=== PATIENT | female | born 1955 | race Caucasian/White ===

== ENCOUNTER → 2016-03-25 | Outpatient (CLI) | payer OTHER ==
[~2016-03-25] MED LIST: DOCU-144 PO; ESCI5TAB PO; HYDR-2086 PO; HYDR-3498 PO; IBUP100O10 PO; IOHEXOL 300MG/ML 30 ML BTL ONE
--- NOTE | 2016-03-25 16:46 | RADRPT ---
PROCEDURE: Right hip arthrogram and aspiration. CLINICAL INDICATION: Right hip pain. Postop. TECHNIQUE: Prior to the procedure, informed consent was obtained. The patient's name, date of bir th, and procedure to be performed were verified. Using local anesthetic, sterile technique and fluo roscopic guidance, a 20-gauge spinal needle was advanced into the right hip joint. Five cc of Omnip aque-300 contrast was injected into the joint. A small amount of bloody fluid was aspirated. COMPARISON: No prior studies available for comparison. FINDINGS: Images demonstrate a total right hip arthroplasty. Subsequent images demonstrate contrast injection in the joint region. IMPRESSION: 1. Satisfactory right hip arthrogram and aspiration. RPTAT: QQ .Fili Morejon MD, MD Date Time Electronically viewed and signed by .Fili Morejon MD, MD on 03/25/2016 16:46 .R/
== END | disposition home or self-care (01) ==
LOC: RAD 14:01
PROVIDERS: ATTEND Specialist
DX: M25.552 Pain in left hip (principal); Z96.642 Presence of left artificial hip joint
CPT/HCPCS: 77002; 87070; Q9967; Z7610

== ENCOUNTER → 2016-06-17 | Outpatient (CLI) | payer OTHER ==
[~2016-06-17] MED LIST changes: -IOHEXOL 300MG/ML 30 ML BTL ONE
--- NOTE | 2016-06-17 09:54 | RADRPT ---
PROCEDURE: XR pelvis/right hip. CLINICAL INDICATION: Hip pain TECHNIQUE: AP pelvis/AP and lateral right hip views available for review. COMPARISON: 10/17/2015 FINDINGS: There is a right total hip replacement. There is no evidence of loosening of the prosthesis. There i s no evidence of hardware failure. There is normal mineralization, architecture and alignment. No f ractures are identified. No osseous lesions are present. The left hip joint is unremarkable. The SI joints are unremarkable. The soft tissues are unremarkable. IMPRESSION: Right total hip replacement Otherwise an unremarkable examination RPTAT: HGDB .Ismael Amaya MD, Date Time Electronically viewed and signed by .Ismael Amaya MD, on 06/17/2016 09:54 .B/
== END | disposition home or self-care (01) ==
LOC: HKI 09:16
PROVIDERS: ATTEND Orthopaedic Surgery
DX: T84.51XA Infection and inflammatory reaction due to internal right hip prosthesis, initial encounter (principal); Z96.641 Presence of right artificial hip joint
CPT/HCPCS: 73502; G0463

== ENCOUNTER → 2016-08-13 | Outpatient (CLI) | payer OTHER ==
[~2016-08-13] MED LIST changes: +IOHEXOL 300MG/ML 30 ML BTL ONE
[2016-08-13 14:49] LABS: SYNOVIAL FLUID COLOR Brown
[2016-08-13 14:50] LABS: SYNOVIAL FLUID CLARITY Cloudy; SYNOVIAL FLUID WBC 83200 /cmm (0-150)
--- NOTE | 2016-08-13 15:40 | RADRPT ---
PROCEDURE: Right hip aspiration CLINICAL INDICATION: Pain TECHNIQUE: After informed consent was obtained, the patients right hip was prepped and draped in usual sterile fashion. 1% Lidocaine was used for local anesthesia. Under fluoroscopic guidance, an 1 8 gauge spinal needle was inserted into the hip joint. 5 cc of orange colored fluid was aspirated. The patient tolerated the procedure well and there were no immediate complications. Fluoroscopy time: 0.2 minute COMPARISON: None FINDINGS: Aspiration of 5 cc of thick [place] fluid. RPTAT: AA IMPRESSION: Successful right hip aspiration. The fluid was sent for culture and sensitivity. Physician Isabel Date Time Electronically viewed and signed by Physician Isabel on 08/13/2016 15:40 RA/
[2016-08-13 16:44] LABS: LYMPHOCYTES,SYNOVIAL FLUID 3; NEUTROPHILS,SYNOVIAL FLUID 95 % (0-25)
== END | disposition home or self-care (01) ==
LOC: RAD 10:39
PROVIDERS: ATTEND Orthopaedic Surgery
DX: Z47.1 Aftercare following joint replacement surgery (principal); Z96.641 Presence of right artificial hip joint; M25.551 Pain in right hip
CPT/HCPCS: 20610; 77002; 87070; 87075; 89051; Z7610; Q9967

== ENCOUNTER 2016-09-06 11:48 | Inpatient (IN) | payer OTHER ==
[~2016-09-06] VITALS: Ht 170.2 cm; Wt 62.7 kg
[2016-09-06] MEDS ORDERED: CEFTRIAXONE 1 GM/50 ML (PMX) 50 ML IVPB STA (15:27)
[2016-09-06] MEDS ORDERED: ONDANSETRON 4 MG INJ IV STA (15:27)
[2016-09-06] MEDS ORDERED: SOD CHLORIDE 0.9% 1,000 ML IV STA (15:27)
[2016-09-06] MEDS ORDERED: HYDROmorphONE 1 MG/ML SYG IV STA (15:27)
[2016-09-06] MEDS ORDERED: PIPER-TAZO 3.375 GM IV (PMX) 100 ML IVPB STA (15:27)
[2016-09-06] MEDS ORDERED: VANCOMYCIN 1 GM (PMX) 250 ML IVPB SCH (15:30)
[2016-09-06 15:39] LABS: ADD SCAN DIFF NO
[2016-09-06 15:42] LABS: BASOPHILS % 0.5 % (0.0-2.0); EOSINOPHILS # 0.2 10^3/ul (0.0-0.5); EOSINOPHILS % 3.1 % (0.0-7.0); HEMATOCRIT 34.7 % (37.0-47.0); HEMOGLOBIN 11.3 g/dl (12.0-16.0); LYMPHOCYTES # 1.7 10^3/ul (0.8-2.9); LYMPHOCYTES % 22.4 % (15.0-51.0); MEAN CORPUSCULAR HEMOGLOBIN 27.6 pg (29.0-33.0); MEAN CORPUSCULAR HGB CONC 32.6 g/dl (32.0-37.0); MEAN CORPUSCULAR VOLUME 84.8 fl (82.0-101.0); MONOCYTE # 0.9 10^3/ul (0.3-0.9); MONOCYTES % 11.3 % (0.0-11.0); NEUTROPHIL # 4.8 10^3/ul (1.6-7.5); NEUTROPHILS % 62.4 % (39.0-77.0); PLATELET COUNT 310 10^3/UL (140-415); RED BLOOD COUNT 4.09 10^6/ul (4.20-5.40); RED CELL DISTRIBUTION WIDTH 15.2 % (11.5-14.5); WHITE BLOOD COUNT 7.6 10^3/ul (4.8-10.8)
[2016-09-06 15:58] LABS: INR 0.98
[2016-09-06 16:01] LABS: ALANINE AMINOTRANSFERASE 23 IU/L (13-69); ALBUMIN 4.3 g/dl (3.3-4.9); ALKALINE PHOSPHATASE 83 IU/L (42-121); ANION GAP 14 (8-16); ASPARTATE AMINO TRANSFERASE 25 IU/L (15-46); BILIRUBIN,INDIRECT 0.2 mg/dl (0-1.1); BILIRUBIN,TOTAL 0.2 mg/dl (0.2-1.3); BLOOD UREA NITROGEN 9 mg/dl (7-20); CALCIUM 9.4 mg/dl (8.4-10.2); CARBON DIOXIDE 29 mmol/L (21-31); CHLORIDE 104 mmol/L (97-110); GLUCOSE 103 mg/dl (70-220); POTASSIUM 3.7 mmol/L (3.5-5.1); SODIUM 143 mmol/L (135-144); TOTAL PROTEIN 7.6 g/dl (6.1-8.1)
[2016-09-06 16:16] LABS: TROPONIN-I < 0.012 ng/ml (0.00-0.12)
--- NOTE | 2016-09-06 16:18 | ERA ---
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 Her initial infection was diagnosed about a year ago for short period of time she was treated with oral antibiotics and it seemed symptoms improved, although testing about 2 weeks ago revealed MRSA positive infection. She states she has had intermittent tactile fevers and increasing pain to the right hip with recent redness and swelling to the skin over the right hip. Patient denies chest pain or shortness of breath, no calf or leg swelling, no vomiting, no abdominal pain. ROS All systems reviewed and are negative except as per history of present illness. Medications Home Meds Active Scripts Hydrocodone Bit/Acetaminophen (Anexsia 5-325 Mg Tablet) 1 Tab Tablet, 2 TAB PO Q4H Y for PAIN for 28 Days, TAB Prov:TONY CADET MD 10/20/15 Docusate Sodium* (Colace*) 100 Mg Capsule, 100 MG PO BID for 28 Days, CAP Prov:TONY CADET MD 10/20/15 Hydrocodone Bit-Acetaminophen* ([place]*) 5-325 Mg Tab, 1 TAB PO Q4H Y for PAIN for 28 Days, TAB Prov:TONY CADET MD 10/20/15 Reported Medications Ibuprofen (Ibuprofen) 100 Mg/5 Ml Oral.susp, 800 MG PO Q6H Y for PAIN, ML 10/16/15 Hydrocodone Bit-Acetaminophen* (Vicodin*) 5-300 Tab, 1 TAB PO Q4H Y for PAIN, TAB 10/16/15 Escitalopram Oxalate* (Lexapro*) 5 Mg Tablet, 5 MG PO DAILY, #30 TAB 10/16/15 Allergies Allergies: Coded Allergies: No Known Allergy (Unverified , 11/21/15) PMhx/Soc Arthritis History of Surgery: Yes (SHINGLES, S/P RT THR 10/17/2015, HYPERCHOLESTEROLEMIA.) Anesthesia Reaction: Yes (nausea) Hx Neurological Disorder: No Hx Respiratory Disorders: No Hx Cardiac Disorders: Yes (hyperlipidemia) Hx Psychiatric Problems: No Hx Miscellaneous Medical Probl: No Hx Alcohol Use: Yes Hx Substance Use: No Hx Tobacco Use: No Smoking Status: Never smoker FmHx Family History: No diabetes Physical Exam Vitals Vital Signs Date Time Temp Pulse Resp B/P Pulse Ox O2 Delivery O2 Flow Rate FiO2 09/06/16 15:11 98.9 83 20 121/64 100 Room Air 09/06/16 11:51 98.9 63 20 137/66 99 Physical Exam GENERAL: Well-developed, well-nourished, in moderate discomfort. HEENT: Moist mucous membranes, pink conjunctiva, no cervical spine tenderness or step-off deformities, no goiter, no jaundice or icterus, extraocular movements intact without pain. No submandibular induration, and no pharyngeal erythema NEURO: Alert and oriented 3, cranial nerves II through XII intact bilaterally, pupils equal round reactive to light, no focal deficits or facial asymmetry, sensation intact distally Strength 5/5 in upper and lower extremities bilaterally CARDIAC: Regular rate and rhythm, no murmurs rubs or gallops LUNGS: Clear bilaterally no wheezing crackles or stridor ABDOMEN: Soft nontender, no guarding, no rigidity, no rebound, no psoas sign no obturator sign. Normoactive bowel sounds SKIN: Right lateral hip erythema with induration and skin dimpling secondary to previous hip arthroplasty, no ulcers, no active discharge. No rash EXTREMITIES: No clubbing cyanosis or edema, calves are bilaterally symmetrical, no Homans sign, no popliteal cord sign. Distal pulses equal and bilateral PSYCH: Normal affect without agitation or irritability Result Diagram: 09/06/16 1522 09/06/16 1522 Results 24 hrs Laboratory Tests Test 09/06/16 15:22 09/06/16 16:23 White Blood Count 7.610^3/ul Red Blood Count 4.0910^6/ul Hemoglobin 11.3g/dl Hematocrit 34.7% Mean Corpuscular Volume 84.8fl Mean Corpuscular Hemoglobin 27.6pg Mean Corpuscular Hemoglobin Concent 32.6g/dl Red Cell Distribution Width 15.2% Platelet Count 71173^3/UL Mean Platelet Volume 10.0fl Neutrophils % 62.4% Lymphocytes % 22.4% Monocytes % 11.3% Eosinophils % 3.1% Basophils % 0.5% Nucleated Red Blood Cells % 0.0/100WBC Neutrophils # 4.810^3/ul Lymphocytes # 1.710^3/ul Monocytes # 0.910^3/ul Eosinophils # 0.210^3/ul Basophils # 0.010^3/ul Nucleated Red Blood Cells # 0.010^3/ul Prothrombin Time 13.0Sec Prothrombin Time Ratio 1.0 INR International Normalized Ratio 0.98 Sodium Level 143mmol/L Potassium Level 3.7mmol/L Chloride Level 104mmol/L Carbon Dioxide Level 29mmol/L Anion Gap 14 Blood Urea Nitrogen 9mg/dl Creatinine 0.50mg/dl Glucose Level 103mg/dl Calcium Level 9.4mg/dl Total Bilirubin 0.2mg/dl Direct Bilirubin 0.00mg/dl Indirect Bilirubin 0.2mg/dl Aspartate Amino Transf (AST/SGOT) 25IU/L Alanine Aminotransferase (ALT/SGPT) 23IU/L Alkaline Phosphatase 83IU/L Troponin I < 0.012ng/ml Total Protein 7.6g/dl Albumin 4.3g/dl Globulin 3.30g/dl Albumin/Globulin Ratio 1.30 Lipase 55U/L Urine Color STRAW Urine Clarity CLEAR Urine pH 6.0 Urine Specific [place] 1.006 Urine Ketones NEGATIVEmg/dL Urine Nitrite NEGATIVEmg/dL Urine Bilirubin NEGATIVEmg/dL Urine Urobilinogen NEGATIVEmg/dL Urine Leukocyte Esterase NEGATIVELeu/ul Urine Hemoglobin NEGATIVEmg/dL Urine Glucose NEGATIVEmg/dL Urine Total Protein NEGATIVEmg/dl Current Medications Medications (Trade) Dose Ordered Sig/Daniel Route PRN Reason Start Time Stop Time Status Last Admin Dose Admin Sodium Chloride (NS) 1,000 ml @ 1,000 mls/hr Q1H STAT IV 09/06/16 15:27 09/06/16 16:26 DC 09/06/16 15:43 Hydromorphone HCl (Dilaudid) 1 mg ONCE STAT IV 09/06/16 15:27 09/06/16 15:30 DC 09/06/16 15:42 Ondansetron HCl 4 mg 4 mg ONCE STAT IV 09/06/16 15:27 09/06/16 15:30 DC 09/06/16 15:42 Ceftriaxone Sodium 50 ml @ 100 mls/hr ONCE STAT IVPB 09/06/16 15:27 09/06/16 15:56 DC 09/06/16 16:26 Piperacillin Sod/ Tazobactam Sod 100 ml @ 200 mls/hr ONCE STAT IVPB 09/06/16 15:27 09/06/16 15:56 DC 09/06/16 15:43 Vancomycin HCl (Vancocin) 250 ml @ 125 mls/hr ONCE IVPB 09/06/16 15:30 09/06/16 17:29 Procedures/MDM IV line was established patient was placed on cardiac catheterization technician rhythm strip revealed a sinus rhythm at 72 bpm with upright P and T waves. Patient was afebrile. Cultures were ordered results are pending I will follow-up. EKG performed, read by me: 72 bpm, normal sinus rhythm, normal axis, no acute ST segment changes, narrow QRS complex, with good R-wave progression in precordial leads. One AP view of the chest performed, read by me reveals no acute infiltrates, normal mediastinum, sharp costophrenic and cardiac borders, no air under the diaphragm. Otherwise unremarkable chest x-ray. Further imaging deferred to her orthopedic surgeon who will be consulting her later. I administered 1 L normal saline intravenously, hydromorphone 1 mg IV, and Zofran 4 mg IV. For MRSA right hip infection I administered vancomycin 1 g IV, ceftriaxone 1 g IV, and Zosyn 3.375 g IV. CBC and electrolytes were normal, liver function tests were normal, troponin was negative. Coagulation profile was within normal limits, urine analysis was negative for infection. Patient admitted to [facility] for continued medical management and surgical debridement and treatment of MRSA positive prosthetic hip infection. Departure Diagnosis: Primary Impression: Prosthetic hip infection Qualified Code: T84.59XA - Prosthetic hip infection, initial encounter Condition: TAMIE Redd MD Sep 06, 2016 16:18
--- NOTE | 2016-09-06 16:18 | RADRPT ---
PROCEDURE: Chest x-ray CLINICAL INDICATION: Abdominal pain TECHNIQUE: Chest single view COMPARISON: None FINDINGS: The heart is normal in size. The pulmonary vessels are normal in caliber. The lungs are clear. Th e costophrenic angles are sharp. The visualized bony thorax is unremarkable. IMPRESSION: No acute cardiopulmonary disease. RPTAT: HH .Pablo Villatoro MD, Date Time Electronically viewed and signed by .Pablo Villatoro MD, MD on 09/06/2016 16:18 .W/
[2016-09-06 16:37] LABS: ADD UMIC NO; UR ASCORBIC ACID NEGATIVE (NEGATIVE); UR BILIRUBIN (Dip) NEGATIVE (NEGATIVE); UR BLOOD (Dip) NEGATIVE (NEGATIVE); UR CLARITY CLEAR (CLEAR); UR COLOR STRAW (YELLOW); UR GLUCOSE (Dip) NEGATIVE (NEGATIVE); UR KETONES (Dip) NEGATIVE (NEGATIVE); UR LEUKOCYTE ESTERASE (Dip) NEGATIVE Leu/ul (NEGATIVE); UR NITRITE (Dip) NEGATIVE (NEGATIVE); UR SPECIFIC GRAVITY (Dip) 1.006 (1.003-1.030); UR TOTAL PROTEIN (Dip) NEGATIVE (NEGATIVE); UR UROBILINOGEN (Dip) NEGATIVE (NEGATIVE)
[2016-09-06 17:20] VITALS: TEMP 98.6
[2016-09-06 18:32] VITALS: BP 121/59; PULSE 61; RESP 18
[2016-09-06 18:43] VITALS: Ht 170.2 cm; Wt 62.7 kg
[2016-09-06] MEDS ORDERED: VANCOMYCIN IV PER PHARMACY XX SCH (19:30)
[2016-09-06] MEDS ORDERED: NACL 0.9% 3 ML SYG IV SCH (19:30)
[2016-09-06] MEDS ORDERED: ACETAMINOPHEN 325 MG TAB PO PRN (19:30)
[2016-09-06] MEDS ORDERED: DOCUSATE SODIUM 100 MG CAP PO PRN (19:30)
[2016-09-06] MEDS ORDERED: ACETAMINOPHEN 650 MG SUPP PR PRN (19:30)
[2016-09-06] MEDS ORDERED: HYDROCODONE/APAP (5/325) TAB PO PRN (19:30)
--- NOTE | 2016-09-06 19:47 | CONS ---
DATE OF ADMISSION: 09/06/2016 DATE OF CONSULTATION: 09/06/2016 REASON FOR CONSULTATION: Infected right hip replacement. HISTORY OF PRESENT ILLNESS: The patient is a 60-year-old woman who initially underwent a right tota l hip arthroplasty through a posterior approach on 10/17/2015 at [facility] by Dr. Pb Valdes. The patient reports that she had her ayo removed about 2 to 3 weeks after the surgery and at that time there was noted to be some drainage from the wound. She was taken back to the operating room on 11/21/[address] Valdes for superficial I and D. The report states that there was no evidence of any deep infection into the joint and no purulence or abscess was noted. C ultures were apparently taken and this was closed over a drain. She was kept in the hospital for ap proximately 4 to 5 days and placed on intravenous antibiotics. She was then discharged to home with no further antibiotic therapy. She then developed worsening pain in March of this year and she s aw Dr. Valdes who ordered a hip aspiration. This was done on 03/25/2016 and came back positive f or growth with MRSA. She was eventually referred to me on 06/17/2016. At that time I saw her, I no itz that she had no pain and her findings were inconsistent with a hip infection. I worked this up with a followup CBC, ESR and CRP and a repeat aspiration. The results came back with a white blood cell count of 8.51, ESR 16 and a CRP elevated at 12.43. The repeat hip aspiration on 08/13/2016 was done and revealed positive growth of MRSA. I had called the patient as soon as I found out the res ults and recommended a 2-stage exchange procedure. She has been afebrile with no fevers or chills, and no drainage or redness around the hip. We have been awaiting insurance authorization, but she c alled today saying she was feeling some chills and noted some redness around her hip. She came into the office and I felt that she needed to be admitted to the hospital for further evaluation and pinky atment. She has started to have some pain in the right hip and groin. There has been no trauma. PAST MEDICAL HISTORY: Elevated cholesterol. PAST SURGICAL HISTORY: 1. Right total hip arthroplasty. 2. Irrigation and debridement, right hip. 3. Knee arthroscopy. 4. Gender reassignment surgery. MEDICATIONS: None. ALLERGIES: NO KNOWN DRUG ALLERGIES. SOCIAL HISTORY: The patient does not smoke and drinks only occasionally. FAMILY HISTORY: Noncontributory. REVIEW OF SYSTEMS: GENERAL/CONSTITUTIONAL: Negative for recent fevers, decreased appetite, fatigue, or unexplained andrés ght loss. EYES/EARS/NOSE/MOUTH/THROAT: Negative for headaches, double vision, tearing, nose bleeding, colds, obstruction, discharge, dental difficulties, gingival bleeding, dentures, neck stiffness, pain, tend erness, or masses in thyroid or other areas. CARDIOVASCULAR: Negative for chest pain, palpitations, irregular heartbeat, syncope, dyspnea on exe rtion, orthopnea, nocturnal paroxysmal dyspnea. RESPIRATORY: Negative for shortness of breath, wheezing, stridor, hemoptysis, tuberculosis, fever, or night sweats. GASTROINTESTINAL: Negative for dysphagia, abdominal pain, heartburn, nausea, vomiting, hematemesis, jaundice, constipation, diarrhea, abnormal stools (jeane-colored, tarry, bloody, greasy, foul-smelli ng), or bright red blood per rectum. GENITOURINARY: Negative for urgency, frequency, dysuria, nocturia, hematuria, stones, infections, n ephritis, hesitancy, change in size of stream, dribbling, acute retention, or incontinence. MUSCULOSKELETAL: Negative for pain, swelling, redness or heat of muscles or joints, limitation of m otion, muscular weakness, atrophy, or cramps. NEUROLOGIC/PSYCHIATRIC: Negative for convulsions, paralyses, tremor, incoordination, paresthesias, difficulties with memory or speech, sensory or motor disturbances, muscular coordination (ataxia, tr emor), emotional problems, anxiety, depression, previous psychiatric care, unusual perceptions, or h allucinations. HEMATOLOGIC: Negative for anemia, bleeding tendency, previous transfusions and reactions, or Rh inc ompatibility. ENDOCRINE: Negative for polydipsia, polyuria, hormone therapy, or intolerance to heat or cold. PHYSICAL EXAMINATION: GENERAL: Well-developed, well-nourished female in no distress. She is alert and oriented x4. VITAL SIGNS: She is afebrile, temperature 98.6, blood pressure 104/78, pulse 60, respiratory rate 1 6, saturation is 100% on room air. MUSCULOSKELETAL: She walks with a normal gait with no antalgic component. Leg lengths are equal. The scar over the right hip is well-healed. There is some trace redness but no fluctuance or draina ge. The right hip has some pain, but no irritability with passive range of motion. She is able to straight leg raise on her own. NEUROVASCULAR: Motor strength is 5/5 in the quadriceps, tibialis anterior, extensor hallucis longus , gastroc-soleus, and peroneals bilaterally. Sensation is intact to light touch throughout both lowe r extremities. There are 2+ palpable dorsalis pedis and posterior tibial pulses, with capillary refi ll less than 2 seconds in all 5 digits bilaterally. There is no distal edema. IMAGING: X-rays dated 06/17/2016 show an uncemented right total hip arthroplasty in place with no obvious loosening. LABORATORY DATA: Today reveal white blood cell count of 7.6, hematocrit 34.7, platelet count 310. INR 0.98. Urine specimen is negative. 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 DISCUSSION: She will require a 2-stage exchange procedure in which we irrigate and debride the righ t hip and remove the prosthesis and place an antibiotic-impregnated cement spacer. She will then ne ed interval intravenous antibiotics and then once her serologic markers normalize, we would then hav e her come off antibiotics, wait a few weeks, aspirate the hip and if it is negative, bring her back soon thereafter for reimplantation. I had a lengthy discussion with the patient about this process . I explained the risks of the first procedure to include but not be limited to bleeding and possib le need for blood transfusion, infection that is unable to be eradicated and need for permanent Gird lestone or loss of limb with a hip disarticulation, wound healing problems, leg length inequality, i nstability, dislocation, fracture, malunion, nonunion, blood clots, pulmonary embolism, and anesthet ic complications such as heart attack, stroke, GI bleed, pneumonia and/or . I explained that t o take out the femoral prosthesis, she will likely need an extended trochanteric osteotomy and this involves the potential risks of malunion or nonunion as well. She understands all that. She will b e seen by infectious disease as well as medicine for preoperative optimization. She should be start ed now on intravenous vancomycin. I will follow her in the hospital and we will plan to do the surg tarun early next week. Dictated By: EDDIE HUDSON MD EZ/NTS Conf#: [id number] DID#: [id number]
[2016-09-06 20:00] VITALS: BP 112/59; PULSE 62; RESP 18
[2016-09-06] MEDS: LEVOFLOXACIN 500MG/D5W (PMX) 100 ML IVPB SCH (20:02)
[2016-09-06] MEDS: SOD CHLORIDE 0.9% 1,000 ML IV SCH (20:02)
[2016-09-06] MEDS: morphine 2 MG INJ IV PRN (20:10)
--- NOTE | 2016-09-06 22:51 | QN ---
Documentation Comment [id number] TONY CADET MD Sep 06, 2016 22:51
--- NOTE | 2016-09-07 00:04 | HP ---
DATE OF ADMISSION: 09/06/2016 HISTORY OF PRESENT ILLNESS: The patient is a 60-year-old female with history of right hip surgery. The patient has a history of right hip infection treated in the past. The patient claims that now she has developed a staph infection and was told to come to the hospital for possible I and D. PAST MEDICAL HISTORY: Positive for osteoarthritis, DJD, anemia, history of right total hip replacem ent in the past. ALLERGY HISTORY: NEGATIVE. FAMILY HISTORY: Negative. SOCIAL HISTORY: Negative. MEDICATIONS AT HOME: None. REVIEW OF SYSTEMS: HEENT: Unremarkable. RESPIRATORY: Unremarkable. CARDIOVASCULAR: Unremarkable. ABDOMEN: Unremarkable. EXTREMITIES: Right knee pain. PHYSICAL EXAMINATION: GENERAL: The patient is awake, alert. VITAL SIGNS: Stable. HEAD: Atraumatic, normocephalic. Pupils equal, reactive to light. NECK: Supple. No JVD. LUNGS: Clear. CARDIOVASCULAR: S1, S2 are normal. ABDOMEN: Soft, nontender. Bowel sounds present. No palpable mass or hepatosplenomegaly. No guard ing, rebound tenderness. EXTREMITIES: There is no cyanosis, clubbing, or edema. CENTRAL NERVOUS SYSTEM: The patient is awake, alert, no focal deficit. HIPS: The right hip is swollen and red. The patient has no discharge noted. LABORATORY DATA: The patient's laboratory data shows the patient has WBC 7.6, hematocrit 34.7. CRP 1.21. IMPRESSION: 1. Right hip pain. 2. Possible right hip cellulitis, rule out abscess. PLAN: At this point, is to have a recommendation from , antibiotics, pain medication. Ord ers were done. Dictated By: TONY CADET MD BS/NTS Conf#: [id number] DID#: [id number]
[2016-09-07] MEDS: ONDANSETRON 4 MG INJ IV PRN ×2 (00:55→09:17)
[2016-09-07] MEDS: morphine 2 MG INJ IV PRN ×4 (00:55→18:26)
[2016-09-07] MEDS: VANCOMYCIN 750 MG in SOD CHLORIDE 0.9% 150 ML IVPB SCH ×2 (05:20→17:33)
[2016-09-07] MEDS ORDERED: PANTOPRAZOLE 40 MG INJ IV SCH (06:00)
[2016-09-07 07:26] VITALS: BP 117/59; RESP 18
--- NOTE | 2016-09-07 12:23 | PN ---
Date/Time of Note Date/Time of Note DATE: 09/07/16 TIME: 12:20 Assessment/Plan Lines/Catheters IV Catheter Type (from Nrsg): Peripheral IV Assessment/Plan Assessment/Plan MRSA Infected Right CORBY -Ultrasound right hip/thigh to look for soft tissue fluid collection -Cont Vanco and Levaquin -Check blood cultures -Pain meds -Request ID consult -Plan for surgery for I&D and removal of infected right CORBY and placement of ABX PMMA spacer on Friday Subjective 24 Hr Interval Summary Resting comfortably. On Vanco and Levaquin. Some right hip pain. Exam/Review of Systems Vital Signs Vitals Vital Signs Date Time Temp Pulse Resp B/P Pulse Ox O2 Delivery O2 Flow Rate FiO2 09/07/16 07:26 98.2 61 18 117/59 99 09/06/16 20:00 Room Air Intake and Output 09/06/16 09/06/16 09/07/16 15:00 23:00 07:00 Intake Total 100 ml 1090 ml Output Total 1100 ml Balance 100 ml -10 ml Exam Free Text/Dictation Some redness and swelling along lower portion of right hip scar Thigh soft 5/5 Quadriceps, Tibialis Anterior, EHL, Gastroc Soleus, Peroneals Normal sensation Palpable DP/PT, CR < 2 Sec No distal edema ESR 40 CRP 1.21 Results Result Diagram: 09/06/16 1522 09/06/16 1522 EDDIE HUDSON MD Sep 07, 2016 12:23
--- NOTE | 2016-09-07 13:54 | PN ---
Date/Time of Note Date/Time of Note DATE: 09/07/16 TIME: 13:51 Assessment/Plan VTE Prophylaxis VTE Prophylaxis Intervention: ambulation Lines/Catheters IV Catheter Type (from Nrsg): Peripheral IV Assessment/Plan Chief Complaint/Hosp Course 1. Right hip pain. 2. Possible right hip cellulitis, rule out abscess. Problems: Assessment/Plan 1. Pain control 2. plan per Ortho consult by Dr Peter 3. ID consult Dr Paris, called Subjective 24 Hr Interval Summary Constitutional: no complaints Cardiovascular: no complaints Musculoskeletal: restricted range of motion Exam/Review of Systems Vital Signs Vitals Vital Signs Date Time Temp Pulse Resp B/P Pulse Ox O2 Delivery O2 Flow Rate FiO2 09/07/16 07:26 98.2 61 18 117/59 99 09/06/16 20:00 Room Air Intake and Output 09/06/16 09/06/16 09/07/16 15:00 23:00 07:00 Intake Total 100 ml 1090 ml Output Total 1100 ml Balance 100 ml -10 ml Exam Constitutional: alert, oriented ENMT: nl external ears & nose Neck: supple Respiratory: clear to auscultation Cardiovascular: regular rate and rhythm Musculoskeletal: range of motion (decreased R hip) Results Result Diagram: 09/06/16 1522 09/06/16 1522 Results 24 hrs Laboratory Tests Test 09/06/16 15:22 09/06/16 16:23 09/06/16 19:05 White Blood Count 7.6 # Red Blood Count 4.09 L Hemoglobin 11.3 L Hematocrit 34.7 L Mean Corpuscular Volume 84.8 Mean Corpuscular Hemoglobin 27.6 L Mean Corpuscular Hemoglobin Concent 32.6 Red Cell Distribution Width 15.2 #H Platelet Count 310 Mean Platelet Volume 10.0 Neutrophils % 62.4 Lymphocytes % 22.4 Monocytes % 11.3 H Eosinophils % 3.1 Basophils % 0.5 Nucleated Red Blood Cells % 0.0 Neutrophils # 4.8 Lymphocytes # 1.7 Monocytes # 0.9 Eosinophils # 0.2 Basophils # 0.0 Nucleated Red Blood Cells # 0.0 Prothrombin Time 13.0 Prothrombin Time Ratio 1.0 INR International Normalized Ratio 0.98 Sodium Level 143 Potassium Level 3.7 Chloride Level 104 Carbon Dioxide Level 29 Anion Gap 14 Blood Urea Nitrogen 9 Creatinine 0.50 Glucose Level 103 Calcium Level 9.4 Total Bilirubin 0.2 Direct Bilirubin 0.00 Indirect Bilirubin 0.2 Aspartate Amino Transf (AST/SGOT) 25 Alanine Aminotransferase (ALT/SGPT) 23 Alkaline Phosphatase 83 Troponin I < 0.012 Total Protein 7.6 Albumin 4.3 Globulin 3.30 H Albumin/Globulin Ratio 1.30 Lipase 55 Urine Color STRAW Urine Clarity CLEAR Urine pH 6.0 Urine Specific Cassel 1.006 Urine Ketones NEGATIVE Urine Nitrite NEGATIVE Urine Bilirubin NEGATIVE Urine Urobilinogen NEGATIVE Urine Leukocyte Esterase NEGATIVE Urine Hemoglobin NEGATIVE Urine Glucose NEGATIVE Urine Total Protein NEGATIVE Erythrocyte Sedimentation Rate 40 H C-Reactive Protein High Sensitivity 1.21 H Medications Medications Current Medications Sodium Chloride (NS) 1,000 ml @ 40 mls/hr Q24H IV Last administered on 20:02; Admin Dose 40 MLS/HR; Start 09/06/16 at 19:24 Ondansetron HCl (Zofran Inj) 4 mg Q6H PRN IV NAUSEA AND/OR VOMITING Last administered on 09/07/16 09:17; Admin Dose 4 MG; Start 09/06/16 at 19:30 Acetaminophen (Tylenol Tab) 650 mg Q6H PRN PO PAIN LEVEL 1-3 OR FEVER; Start at 19:30 Acetaminophen (Tylenol Supp) 650 mg Q6H PRN [place] PAIN LEVEL 1-3 OR FEVER; Start 09/06/16 at 19:30 Acetaminophen/ Hydrocodone Bitart ([place] (5/325)) 1 tab Q6H PRN PO MODERATE PAIN LEVEL 4-6; Start 09/06/16 at 19:30 Morphine Sulfate (morphine) 2 mg Q4H PRN IV SEVERE PAIN LEVEL 7-10 Last administered on 09/07/16 12:48; Admin Dose 2 MG; Start 09/06/16 at 19:30 Docusate Sodium (Colace) 100 mg Q12H PRN PO CONSTIPATION; Start 09/06/16 at 19: 30 Magnesium Hydroxide (Milk Of Mag) 30 ml DAILY PRN PO CONSTIPATION; Start at 19:30 Bisacodyl (Dulcolax) 5 mg DAILY PRN PO CONSTIPATION; Start 09/06/16 at 19:30 Pantoprazole 40 mg 40 mg DAILY@06 IV Last administered on 09/07/16 05:20; Admin Dose 40 MG; Start 09/07/16 at 06:00 Levofloxacin/ Dextrose 100 ml @ 100 mls/hr Q24H IVPB Last administered on 09/06 20:02; Admin Dose 100 MLS/HR; Start 09/06/16 at 19:30 Vancomycin HCl/ Sodium Chloride (Vancocin/NS) 150 ml @ 75 mls/hr Q12H IVPB Last administered on 09/07/16 05:20; Admin Dose 75 MLS/HR; Start 09/07/16 at 05 :00 Miscellaneous Information (*Rx Drug Level Order Reminder*) VANCOMYCIN TROUGH AT 0400 ONCE ONCE XX ; Start 09/08/16 at 04:00; Stop 09/08/16 at 04:01 MICH ACOSTA Sep 07, 2016 13:53
--- NOTE | 2016-09-07 14:41 | RADRPT ---
PROCEDURE: Ultrasound of the soft tissues of the right hip. CLINICAL INDICATION: Right hip pain and swelling. History of right hip arthroplasty. TECHNIQUE: High-resolution sonography of the right hip at the site of the was performed in the axi al and sagittal planes. COMPARISON: None FINDINGS: There is a subcutaneous hypoechoic irregular mass in the right hip region measuring 3.0 x 1.6 x 1.6 cm. There is no other mass or fluid collection. There is subcutaneous adipose tissue edema in the right hip. IMPRESSION: 1. Subcutaneous hypoechoic irregular mass in the right hip region measuring 3.0 x 1.6 x 1.6 cm. Th is may be due to hematoma or abscess. A solid mass is less likely. Clinical correlation is advised. 2. Any further management regarding the palpable lesion should be based on clinical grounds. RPTAT: QQ .Fili Morejon MD, Date Time Electronically viewed and signed by .Fili Morejon MD, on 09/07/2016 14:41 .R/
--- NOTE | 2016-09-07 18:13 | CONS ---
DATE OF ADMISSION: 09/06/2016 DATE OF CONSULTATION: 09/07/2016 INFECTIOUS DISEASE CONSULTATION REASON FOR CONSULTATION: Antibiotic management. HISTORY OF PRESENT ILLNESS: Briana Alves is a 60-year-old female with a history of right hip surg tarun. She has a history of right hip infection treated in the past. Patient claims that she now has developed a staph infection and was told to come to the hospital for possible I and D. Patient is being seen by Dr. Jourdan Peter. The patient initially underwent a right total hip arthroplasty throu gh a posterior approach on 10/17/2015 at [facility] by Dr. Valdes. She had her ayo removed about 2 to 3 weeks after the surgery and at that time, there was noted to be some drainage f rom the wound. She was taken back to the operating room on 11/21/2015 for a superficial I and D. T here is no evidence at the time of deep infection to the joint. It was closed over a drain. She wa s hospitalized for 4 or 5 days on IV antibiotics and discharged home. She developed worsening pain in 03/2016 and had an aspiration. This was done in 03/2016, came back positive for MRSA. She was r eferred to Dr. Peter on 06/17/2016. She had a repeat aspiration as well as a CBC, sed rate. Her w paty count was 8.51. Sed rate 16. CRP 12.43. The aspiration again showed MRSA. He recommended a 2-stage exchange and exchange procedure. They have been waiting for insurance authorization, but sh e called and was complaining of chills and noted some redness around her hip. She came into the off ice of Dr. Peter and was admitted. She started to have some pain in the right hip and groin withou t trauma. PAST SURGICAL HISTORY: Right total hip arthroplasty, irrigation and debridement of the right hip, k nee arthroscopy, gender reassignment surgery. She was seen again by Dr. Peter today ____ infected right total hip aspiration, ultrasound right hip to look for soft tissue collection. The patient wa s started on vancomycin and Levaquin. Blood cultures were ordered. ID consultation was requested. Plan for surgery for incision and drainage and removal of right total hip arthroplasty and placemen t of antibiotic spacer on Friday. On 09/06, white count was 7.6, H and H of 11.3 and 34.7, platele t count 310,000. BUN and creatinine was 9/0.5. PAST MEDICAL HISTORY: Operations as outlined. FAMILY HISTORY: Noncontributory. SOCIAL HISTORY: She does not smoke, drink or abuse drugs. ALLERGIES: NONE TO PENICILLIN, SULFA OR FOODS. MEDICATIONS: Per chart. REVIEW OF SYSTEMS: As per HPI. PHYSICAL EXAMINATION: GENERAL: The patient is a well-developed, well-nourished female who is alert, responsive, in no acu te distress. VITAL SIGNS: Stable. She is afebrile. SKIN: Without generalized rash. HEENT: Within normal limits. NECK: Supple. LYMPH NODES: None palpable. CHEST: Decreased breath sounds at the bases. HEART: Without murmur or gallop. ABDOMEN: Soft, nontender, without organosplenomegaly or masses. EXTREMITIES: She has some redness and swelling along the lower portion of the right hip scar. Thig h is soft. She has no cyanosis, clubbing, or edema. RECTAL AND GENITAL: Deferred. NEUROLOGIC: No focal neurological abnormalities. Her sed rate is 40. Her CRP is 1.21. As noted, she was started on vancomycin and Levaquin. We will continue her on this regimen. When she has allen dana, we will treat her for 6 to 8 weeks, probably 8 weeks, and then she will be ready for repeat to selina hip replacement. I will dictate my findings to Dr. Peter and to Dr. Garcia. Dictated By: DARYA RAWLS MD, JD/WARNER Conf#: [id number] DID#: [id number]
[2016-09-07] MEDS: BISACODYL (EC) 5 MG TAB PO PRN (18:26)
[2016-09-07] MEDS: LEVOFLOXACIN 500MG/D5W (PMX) 100 ML IVPB SCH (19:49)
[2016-09-07] MEDS: SOD CHLORIDE 0.9% 1,000 ML IV SCH (19:52)
[2016-09-07 20:00] VITALS: BP 101/50; RESP 20
[2016-09-08] MEDS: morphine 2 MG INJ IV PRN ×5 (03:06→22:07)
[2016-09-08 04:55] LABS: ADD SCAN DIFF NO
[2016-09-08 05:10] LABS: BASOPHILS % 0.4 % (0.0-2.0); EOSINOPHILS # 0.4 10^3/ul (0.0-0.5); EOSINOPHILS % 5.2 % (0.0-7.0); HEMATOCRIT 36.8 % (37.0-47.0); HEMOGLOBIN 11.4 g/dl (12.0-16.0); LYMPHOCYTES # 1.6 10^3/ul (0.8-2.9); LYMPHOCYTES % 22.1 % (15.0-51.0); MEAN CORPUSCULAR HEMOGLOBIN 26.6 pg (29.0-33.0); MEAN PLATELET VOLUME 10.4 fl (7.4-10.4); MONOCYTE # 0.7 10^3/ul (0.3-0.9); MONOCYTES % 9.9 % (0.0-11.0); NEUTROPHIL # 4.4 10^3/ul (1.6-7.5); NEUTROPHILS % 62.1 % (39.0-77.0); PLATELET COUNT 311 10^3/UL (140-415); RED BLOOD COUNT 4.28 10^6/ul (4.20-5.40); RED CELL DISTRIBUTION WIDTH 15.5 % (11.5-14.5); WHITE BLOOD COUNT 7.1 10^3/ul (4.8-10.8)
[2016-09-08 05:45] LABS: CALCIUM 9.1 mg/dl (8.4-10.2); CREATININE 0.57 mg/dl (0.44-1.00); POTASSIUM 4.3 mmol/L (3.5-5.1)
[2016-09-08] MEDS: VANCOMYCIN 750 MG in SOD CHLORIDE 0.9% 150 ML IVPB SCH (06:09)
[2016-09-08] MEDS: PANTOPRAZOLE (EC) 40 MG TAB PO SCH (06:09)
[2016-09-08 07:22] VITALS: BP 100/50; RESP 18
[2016-09-08] MEDS: MAGNESIUM HYDROXIDE 30ML CUP PO PRN (08:20)
[2016-09-08] MEDS: VANCOMYCIN 1.25 GM in SOD CHLORIDE 0.9% 250 ML IVPB SCH ×2 (12:01→23:24)
--- NOTE | 2016-09-08 18:30 | PN ---
DATE: 09/08/2016 SUBJECTIVE: No events overnight. No fevers. The patient is lying comfortably in bed. LABORATORY DATA: WBC 7.1, no shift, no bands. BUN 11, creatinine 0.57. MICROBIOLOGY: Blood cultures negative. ANTIMICROBIALS: The patient is on: 1. Vancomycin. 2. Levaquin. PHYSICAL EXAMINATION: GENERAL: Fragile, elderly woman who is in no distress. HEENT: Head atraumatic, normocephalic. Sclerae anicteric. Buccal mucosa pink. NECK: Supple. CHEST: Rise symmetrical. Breath sounds clear. HEART: S1, S2. ABDOMEN: Soft, bowel tones present. EXTREMITIES: Without cyanosis. ASSESSMENT: 1. Infected right hip arthroplasty, status post right total hip replacement. 2. Multiple other orthopedic surgeries. PLAN: The patient remains stable clinically and hemodynamically. She is covered with broad spectrum antibiotics. She is being seen by Dr. Peter who is planning to do surgery for incision and drainage and removal of infected right total hip arthroplasty. Anticipate treating pt for 6-8 weeks with IV abx Dictated By: SHARITA ROBERTS CAR TRACER for DARYA RAWLS MD NI/NTS Conf#: [id number] DID#: [id number] CC: TONY CADET MD;*EndCC* MTDD
--- NOTE | 2016-09-08 18:41 | PN ---
Date/Time of Note Date/Time of Note DATE: 09/08/16 TIME: 18:40 Assessment/Plan VTE Prophylaxis VTE Prophylaxis Intervention: other Lines/Catheters IV Catheter Type (from Nrsg): Peripheral IV Assessment/Plan Chief Complaint/Hosp Course HIP CELLULITES HX HIP SURGERY PLAN ANTIBIOTIC Problems: Subjective 24 Hr Interval Summary Respiratory: no complaints Cardiovascular: no complaints Musculoskeletal: bone/joint pain (BETTER) Exam/Review of Systems Vital Signs Vitals Vital Signs Date Time Temp Pulse Resp B/P Pulse Ox O2 Delivery O2 Flow Rate FiO2 09/08/16 07:22 98.2 54 18 100/50 96 09/06/16 20:00 Room Air Intake and Output 09/07/16 09/07/16 09/08/16 15:00 23:00 07:00 Intake Total 2010 ml 1410 ml Output Total 1100 ml 1770 ml Balance 910 ml -360 ml Exam Respiratory: clear to auscultation Cardiovascular: regular rate and rhythm Gastrointestinal: soft Results Result Diagram: 09/08/16 0420 09/08/16 0420 Results 24 hrs Laboratory Tests Test 09/08/16 04:20 White Blood Count 7.1 Red Blood Count 4.28 Hemoglobin 11.4 L Hematocrit 36.8 L Mean Corpuscular Volume 86.0 Mean Corpuscular Hemoglobin 26.6 L Mean Corpuscular Hemoglobin Concent 31.0 L Red Cell Distribution Width 15.5 H Platelet Count 311 Mean Platelet Volume 10.4 Neutrophils % 62.1 Lymphocytes % 22.1 Monocytes % 9.9 Eosinophils % 5.2 Basophils % 0.4 Nucleated Red Blood Cells % 0.0 Neutrophils # 4.4 Lymphocytes # 1.6 Monocytes # 0.7 Eosinophils # 0.4 Basophils # 0.0 Nucleated Red Blood Cells # 0.0 Sodium Level 140 Potassium Level 4.3 Chloride Level 104 Carbon Dioxide Level 30 Anion Gap 10 Blood Urea Nitrogen 11 Creatinine 0.57 Glucose Level 95 Calcium Level 9.1 Vancomycin Level Trough 5.9 L Medications Medications Current Medications Sodium Chloride (NS) 1,000 ml @ 40 mls/hr Q24H IV Last administered on 19:52; Admin Dose 40 MLS/HR; Start 09/06/16 at 19:24 Ondansetron HCl (Zofran Inj) 4 mg Q6H PRN IV NAUSEA AND/OR VOMITING Last administered on 09/07/16 09:17; Admin Dose 4 MG; Start 09/06/16 at 19:30 Acetaminophen (Tylenol Tab) 650 mg Q6H PRN PO PAIN LEVEL 1-3 OR FEVER; Start at 19:30 Acetaminophen (Tylenol Supp) 650 mg Q6H PRN [place] PAIN LEVEL 1-3 OR FEVER; Start 09/06/16 at 19:30 Acetaminophen/ Hydrocodone Bitart ([place] (5/325)) 1 tab Q6H PRN PO MODERATE PAIN LEVEL 4-6; Start 09/06/16 at 19:30 Morphine Sulfate (morphine) 2 mg Q4H PRN IV SEVERE PAIN LEVEL 7-10 Last administered on 09/08/16 17:57; Admin Dose 2 MG; Start 09/06/16 at 19:30 Docusate Sodium (Colace) 100 mg Q12H PRN PO CONSTIPATION Last administered on 18:26; Admin Dose 100 MG; Start 09/06/16 at 19:30 Magnesium Hydroxide (Milk Of Mag) 30 ml DAILY PRN PO CONSTIPATION Last administered on 09/08/16 08:20; Admin Dose 30 ML; Start 09/06/16 at 19:30 Bisacodyl 5 mg 5 mg DAILY PRN PO CONSTIPATION Last administered on 09/07/16 18 :26; Admin Dose 5 MG; Start 09/06/16 at 19:30 Levofloxacin/ Dextrose (Levaquin 500mg/ D5W 100 ml (Pmx)) 100 ml @ 100 mls/hr Q24H IVPB Last administered on 09/07/16 19:49; Admin Dose 100 MLS/HR; Start at 19:30 Pantoprazole 40 mg 40 mg DAILY@06 PO Last administered on 09/08/16 06:09; Admin Dose 40 MG; Start 09/08/16 at 06:00 Vancomycin HCl/ Sodium Chloride (Vancocin/NS) 250 ml @ 83.333 mls/ hr Q12H IVPB Last administered on 09/08/16 12:01; Admin Dose 83.333 MLS/HR; Start at 12:00 TONY CADET MD Sep 08, 2016 18:41
[2016-09-08 20:00] VITALS: BP 114/57; RESP 18
[2016-09-08] MEDS: LEVOFLOXACIN 500MG/D5W (PMX) 100 ML IVPB SCH (20:35)
[2016-09-09] MEDS: SOD CHLORIDE 0.9% 1,000 ML IV SCH ×2 (05:58→19:30)
[2016-09-09] MEDS: MAGNESIUM HYDROXIDE 30ML CUP PO PRN (05:59)
[2016-09-09] MEDS: PANTOPRAZOLE (EC) 40 MG TAB PO SCH (05:59)
[2016-09-09] MEDS: morphine 2 MG INJ IV PRN ×5 (06:05→22:52)
[2016-09-09 07:53] VITALS: BP 112/51; RESP 16
[2016-09-09 08:01] VITALS: BP 110/65; RESP 18
--- NOTE | 2016-09-09 08:34 | PN ---
Date/Time of Note Date/Time of Note DATE: 09/09/16 TIME: 08:31 Assessment/Plan Lines/Catheters IV Catheter Type (from Nrsg): Peripheral IV Assessment/Plan Assessment/Plan MRSA Infected Right CORBY. -Plan for I&D and removal of right infected CORBY and placement of ABX PMMA Spacer tomorrow afternoon -Continue IV ABX -NPO after MN -T&C 2 units PRBC Subjective 24 Hr Interval Summary Resting comfortably. Minimal right hip pain. Exam/Review of Systems Vital Signs Vitals Vital Signs Date Time Temp Pulse Resp B/P Pulse Ox O2 Delivery O2 Flow Rate FiO2 09/09/16 08:01 98.4 79 18 110/65 95 09/06/16 20:00 Room Air Intake and Output 09/08/16 09/08/16 09/09/16 15:00 23:00 07:00 Intake Total 250 ml 1220 ml 1432 ml Output Total 1000 ml 2250 ml Balance 250 ml 220 ml -818 ml Exam Free Text/Dictation Right hip with swelling and slight redness No drainage Thigh soft 5/5 Quadriceps, Tibialis Anterior, EHL, Gastroc Soleus, Peroneals Normal sensation Palpable DP/PT, CR < 2 Sec No distal edema Ultrasound: Subcutaneous hypoechoic irregular mass in the right hip region measuring 3.0 x 1.6 x 1.6 cm. This may be due to hematoma or abscess. A solid mass is less likely. Clinical correlation is advised Blood Cultures: No growth x 48 hours Results Result Diagram: 09/08/16 0420 09/08/16 0420 EDDIE HUDSON MD Sep 09, 2016 08:34
[2016-09-09] MEDS: VANCOMYCIN 1.25 GM in SOD CHLORIDE 0.9% 250 ML IVPB SCH ×2 (11:59→23:43)
--- NOTE | 2016-09-09 13:47 | CONS ---
Date/Time of Note Date/Time of Note DATE: 09/09/16 TIME: 13:44 Assessment/Plan Assessment/Plan Chief Complaint/Hosp Course SUBJECTIVE: No events overnight. No fevers. The patient is alert, lying comfortably in bed. MICROBIOLOGY: Blood cultures negative. ANTIMICROBIALS: The patient is on: 1. Vancomycin. 2. Levaquin. PHYSICAL EXAMINATION: GENERAL: Fragile, elderly woman who is in no distress. HEENT: Head atraumatic, normocephalic. Sclerae anicteric. Buccal mucosa pink. NECK: Supple. CHEST: Rise symmetrical. Breath sounds clear. HEART: S1, S2. ABDOMEN: Soft, bowel tones present. EXTREMITIES: Without cyanosis, R hip swollen. ASSESSMENT: 1. Infected right hip arthroplasty, status post right total hip replacement==> cx + MRSA. 2. Multiple other orthopedic surgeries. PLAN: The patient remains stable, will dc Levaquin and add Rifampin, continue Vanco. Discussed with pt the need for alf IV abx, pt agrees for PICC. Pending incision and drainage and removal of infected right total hip arthroplasty. Anticipate treating pt for 6-8 weeks with IV abx DW pt Problems: Consultation Date/Type/Reason Admit Date/Time Sep 06, 2016 at 15:47 Initial Consult Date Type of Consultation: id Exam/Review of Systems Vital Signs Vitals Vital Signs Date Time Temp Pulse Resp B/P Pulse Ox O2 Delivery O2 Flow Rate FiO2 09/09/16 08:01 98.4 79 18 110/65 95 09/06/16 20:00 Room Air Intake and Output 09/08/16 09/08/16 09/09/16 15:00 23:00 07:00 Intake Total 250 ml 1220 ml 1432 ml Output Total 1000 ml 2250 ml Balance 250 ml 220 ml -818 ml Results Result Diagram: 09/08/16 0420 09/08/16 0420 Medications Medications Current Medications Sodium Chloride (NS) 1,000 ml @ 40 mls/hr Q24H IV Last administered on 05:58; Admin Dose 40 MLS/HR; Start 09/06/16 at 19:24 Ondansetron HCl (Zofran Inj) 4 mg Q6H PRN IV NAUSEA AND/OR VOMITING Last administered on 09/07/16 09:17; Admin Dose 4 MG; Start 09/06/16 at 19:30 Acetaminophen (Tylenol Tab) 650 mg Q6H PRN PO PAIN LEVEL 1-3 OR FEVER; Start at 19:30 Acetaminophen (Tylenol Supp) 650 mg Q6H PRN [place] PAIN LEVEL 1-3 OR FEVER; Start 09/06/16 at 19:30 Acetaminophen/ Hydrocodone Bitart ([place] (5/325)) 1 tab Q6H PRN PO MODERATE PAIN LEVEL 4-6; Start 09/06/16 at 19:30 Morphine Sulfate (morphine) 2 mg Q4H PRN IV SEVERE PAIN LEVEL 7-10 Last administered on 09/09/16 10:21; Admin Dose 2 MG; Start 09/06/16 at 19:30 Docusate Sodium (Colace) 100 mg Q12H PRN PO CONSTIPATION Last administered on 18:26; Admin Dose 100 MG; Start 09/06/16 at 19:30 Magnesium Hydroxide (Milk Of Mag) 30 ml DAILY PRN PO CONSTIPATION Last administered on 09/09/16 05:59; Admin Dose 30 ML; Start 09/06/16 at 19:30 Bisacodyl 5 mg 5 mg DAILY PRN PO CONSTIPATION Last administered on 09/07/16 18 :26; Admin Dose 5 MG; Start 09/06/16 at 19:30 Levofloxacin/ Dextrose (Levaquin 500mg/ D5W 100 ml (Pmx)) 100 ml @ 100 mls/hr Q24H IVPB Last administered on 09/08/16 20:35; Admin Dose 100 MLS/HR; Start at 19:30 Pantoprazole 40 mg 40 mg DAILY@06 PO Last administered on 09/09/16 05:59; Admin Dose 40 MG; Start 09/08/16 at 06:00 Vancomycin HCl/ Sodium Chloride (Vancocin/NS) 250 ml @ 83.333 mls/ hr Q12H IVPB Last administered on 09/09/16 11:59; Admin Dose 83.333 MLS/HR; Start at 12:00 Miscellaneous Information 1 ONCE ONCE XX ; Start 09/10/16 at 11:00; Stop at 11:01 Lactated Ringer's (Lr) 1,000 ml @ 100 mls/hr Q10H IV ; Start 09/10/16 at 15:00 ; Stop 09/11/16 at 00:59 Oxycodone HCl (Oxycontin) 10 mg PRE-OP PO ; Start 09/10/16 at 15:00; Stop at 18:00 Pregabalin (Lyrica) 300 mg PRE-OP PO ; Start 09/10/16 at 15:00; Stop 09/10/16 at 18:00 Celecoxib (Celebrex) 400 mg PRE-OP PO ; Start 09/10/16 at 15:00; Stop 09/10/16 at 18:00 Tramadol HCl 50 mg 50 mg PRE-OP PO ; Start 09/10/16 at 15:00; Stop 09/10/16 at 18:00 Cefazolin Sodium/ Dextrose 50 ml @ 100 mls/hr PRE-OP IVPB ; Start 09/10/16 at 15:00; Stop 09/10/16 at 18:00 Tranexamic Acid 630 mg/Sodium Chloride 100 ml @ 200 mls/hr PRE-OP IV ; Start at 15:00; Stop 09/10/16 at 18:00 Tranexamic Acid/ Sodium Chloride 106.3 ml @ 200 mls/hr INTRA-OP IVPB ; Start at 15:00; Stop 09/10/16 at 18:00 Bupivacaine HCl/ Morphine Sulfate/ Epinephrine/ Ketorolac Tromethamine/ Clonidine/Sodium Chloride/ Cefuroxime Sodium (Marcaine 0.5% (Sdv)/Duramorph/ EPINEPHrine/ Toradol/Duraclon/ NS/Zinacef) INTRA-OP IRR ; Start 09/10/16 at 15: 00; Stop 09/10/16 at 18:00 Bupivacaine Liposome (Exparel 266 Mg/ 20 ml Vial) 266 mg INTRA-OP INFIL ; Start 09/10/16 at 15:00; Stop 09/10/16 at 18:00 Miscellaneous Information 1 ea NOTE XX ; Start 09/10/16 at 13:00; Stop 09/14/16 at 12:59 SHARITA ROBERTS NP Sep 09, 2016 13:47
[2016-09-09] MEDS: RIFAMPIN 300 MG CAP PO SCH (14:20)
--- NOTE | 2016-09-09 18:20 | PN ---
Date/Time of Note Date/Time of Note DATE: 09/09/16 TIME: 18:18 Assessment/Plan VTE Prophylaxis VTE Prophylaxis Intervention: other Lines/Catheters IV Catheter Type (from Nrsg): Peripheral IV Assessment/Plan Chief Complaint/Hosp Course HIP CELLULITES HX HIP SURGERY PLAN ANTIBIOTIC SURGERY SOON Problems: Subjective 24 Hr Interval Summary Cardiovascular: no complaints Gastrointestinal: no complaints Genitourinary: no complaints Exam/Review of Systems Vital Signs Vitals Vital Signs Date Time Temp Pulse Resp B/P Pulse Ox O2 Delivery O2 Flow Rate FiO2 09/09/16 08:01 98.4 79 18 110/65 95 09/06/16 20:00 Room Air Intake and Output 09/08/16 09/08/16 09/09/16 15:00 23:00 07:00 Intake Total 250 ml 1220 ml 1432 ml Output Total 1000 ml 2250 ml Balance 250 ml 220 ml -818 ml Exam Respiratory: clear to auscultation Cardiovascular: regular rate and rhythm Gastrointestinal: soft Musculoskeletal: nl extremities to inspection Extremities: normal pulses Results Result Diagram: 09/08/16 0420 09/08/16 0420 Medications Medications Current Medications Sodium Chloride (NS) 1,000 ml @ 40 mls/hr Q24H IV Last administered on 05:58; Admin Dose 40 MLS/HR; Start 09/06/16 at 19:24 Ondansetron HCl (Zofran Inj) 4 mg Q6H PRN IV NAUSEA AND/OR VOMITING Last administered on 09/07/16 09:17; Admin Dose 4 MG; Start 09/06/16 at 19:30 Acetaminophen (Tylenol Tab) 650 mg Q6H PRN PO PAIN LEVEL 1-3 OR FEVER; Start at 19:30 Acetaminophen (Tylenol Supp) [address] PAIN LEVEL 1-3 OR FEVER; Start 09/06/16 at 19:30 Acetaminophen/ Hydrocodone Bitart ([place] (5/325)) 1 tab Q6H PRN PO MODERATE PAIN LEVEL 4-6; Start 09/06/16 at 19:30 Morphine Sulfate (morphine) 2 mg Q4H PRN IV SEVERE PAIN LEVEL 7-10 Last administered on 09/09/16 14:45; Admin Dose 2 MG; Start 09/06/16 at 19:30 Docusate Sodium (Colace) 100 mg Q12H PRN PO CONSTIPATION Last administered on 18:26; Admin Dose 100 MG; Start 09/06/16 at 19:30 Magnesium Hydroxide (Milk Of Mag) 30 ml DAILY PRN PO CONSTIPATION Last administered on 09/09/16 05:59; Admin Dose 30 ML; Start 09/06/16 at 19:30 Bisacodyl (Dulcolax) 5 mg DAILY PRN PO CONSTIPATION Last administered on 18:26; Admin Dose 5 MG; Start 09/06/16 at 19:30 Pantoprazole 40 mg 40 mg DAILY@06 PO Last administered on 09/09/16 05:59; Admin Dose 40 MG; Start 09/08/16 at 06:00 Vancomycin HCl/ Sodium Chloride (Vancocin/NS) 250 ml @ 83.333 mls/ hr Q12H IVPB Last administered on 09/09/16 11:59; Admin Dose 83.333 MLS/HR; Start at 12:00 Miscellaneous Information 1 ONCE ONCE XX ; Start 09/10/16 at 11:00; Stop at 11:01 Lactated Ringer's (Lr) 1,000 ml @ 100 mls/hr Q10H IV ; Start 09/10/16 at 15:00 ; Stop 09/11/16 at 00:59 Oxycodone HCl (Oxycontin) 10 mg PRE-OP PO ; Start 09/10/16 at 15:00; Stop at 18:00 Pregabalin (Lyrica) 300 mg PRE-OP PO ; Start 09/10/16 at 15:00; Stop 09/10/16 at 18:00 Celecoxib (Celebrex) 400 mg PRE-OP PO ; Start 09/10/16 at 15:00; Stop 09/10/16 at 18:00 Tramadol HCl 50 mg 50 mg PRE-OP PO ; Start 09/10/16 at 15:00; Stop 09/10/16 at 18:00 Cefazolin Sodium/ Dextrose 50 ml @ 100 mls/hr PRE-OP IVPB ; Start 09/10/16 at 15:00; Stop 09/10/16 at 18:00 Tranexamic Acid 630 mg/Sodium Chloride 100 ml @ 200 mls/hr PRE-OP IV ; Start at 15:00; Stop 09/10/16 at 18:00 Tranexamic Acid/ Sodium Chloride 106.3 ml @ 200 mls/hr INTRA-OP IVPB ; Start at 15:00; Stop 09/10/16 at 18:00 Bupivacaine HCl/ Morphine Sulfate/ Epinephrine/ Ketorolac Tromethamine/ Clonidine/Sodium Chloride/ Cefuroxime Sodium ([place] 0.5% (Sdv)/Duramorph/ EPINEPHrine/ Toradol/Duraclon/ NS/Zinacef) INTRA-OP IRR ; Start 09/10/16 at 15: 00; Stop 09/10/16 at 18:00 Bupivacaine Liposome (Exparel 266 Mg/ 20 ml Vial) 266 mg INTRA-OP INFIL ; Start 09/10/16 at 15:00; Stop 09/10/16 at 18:00 Miscellaneous Information 1 ea NOTE XX ; Start 09/10/16 at 13:00; Stop 09/14/16 at 12:59 Rifampin (Rifampin) 600 mg DAILY PO Last administered on 09/09/16t 14:20; Admin Dose 600 MG; Start 09/09/16 at 14:00 TONY CADET MD Sep 09, 2016 18:20
[2016-09-09 20:00] VITALS: BP 101/51; RESP 18
[2016-09-10] VITALS (19 sets, daily range): BP systolic 90–119; BP diastolic 39–58; PULSE 58–92; RESP 11–18
[2016-09-10] MEDS: morphine 2 MG INJ IV PRN ×4 (04:13→13:37)
[2016-09-10 05:52] LABS: CREATININE 0.79 mg/dl (0.44-1.00)
[2016-09-10] MEDS: PANTOPRAZOLE (EC) 40 MG TAB PO SCH (06:00)
[2016-09-10] MEDS: RIFAMPIN 300 MG CAP PO SCH (09:00)
[2016-09-10] MEDS: VANCOMYCIN 1.25 GM in SOD CHLORIDE 0.9% 250 ML IVPB SCH ×2 (12:00→13:34)
[2016-09-10] MEDS: traMADol 50 MG TAB PO SCH ×2 (12:00→19:30)
[2016-09-10] MEDS ORDERED: EXPAREL NOTE (BUPIVICAINE LIPOSOMAL) XX SCH (13:00)
[2016-09-10] MEDS ORDERED: BACITRACIN 50000 UNITS INJ ONE (13:08)
--- NOTE | 2016-09-10 13:18 | CONS ---
Date/Time of Note Date/Time of Note DATE: 09/10/16 TIME: 13:16 Assessment/Plan Assessment/Plan Chief Complaint/Hosp Course SUBJECTIVE: No events overnight. No fevers. The patient is alert, c/o worsening R hip pain, nad MICROBIOLOGY: Blood cultures negative. R hip drainage + MRSA ANTIMICROBIALS: The patient is on: 1. Vancomycin. 2. Rifampin PHYSICAL EXAMINATION: GENERAL: Fragile, elderly woman who is in no distress. HEENT: Head atraumatic, normocephalic. Sclerae anicteric. Buccal mucosa pink. NECK: Supple. CHEST: Rise symmetrical. Breath sounds clear. HEART: S1, S2. ABDOMEN: Soft, bowel tones present. EXTREMITIES: Without cyanosis, R hip swollen. ASSESSMENT: 1. Infected right hip arthroplasty, status post right total hip replacement==> cx + MRSA. 2. Multiple other orthopedic surgeries. PLAN: The patient remains stable, awaiting for surgery, will order PICC. Anticipate treating for 6-8 weeks with IV abx DW pt Problems: Consultation Date/Type/Reason Admit Date/Time Sep 06, 2016 at 15:47 Type of Consultation: id Exam/Review of Systems Vital Signs Vitals Vital Signs Date Time Temp Pulse Resp B/P Pulse Ox O2 Delivery O2 Flow Rate FiO2 09/10/16 07:16 97.9 59 18 115/51 98 09/06/16 20:00 Room Air Intake and Output 09/09/16 09/09/16 09/10/16 15:00 23:00 07:00 Intake Total 1350 ml 1510 ml Output Total 1750 ml 1200 ml Balance -400 ml 310 ml Results Result Diagram: 09/08/16 0420 09/10/16 0502 Results 24 hrs Laboratory Tests Test 09/10/16 05:02 09/10/16 11:10 Blood Urea Nitrogen 21 H Creatinine 0.79 Vancomycin Level Trough 12.6 Medications Medications Current Medications Sodium Chloride (NS) 1,000 ml @ 40 mls/hr Q24H IV Last administered on 05:58; Admin Dose 40 MLS/HR; Start 09/06/16 at 19:24 Ondansetron HCl (Zofran Inj) 4 mg Q6H PRN IV NAUSEA AND/OR VOMITING Last administered on 09/07/16 09:17; Admin Dose 4 MG; Start 09/06/16 at 19:30 Acetaminophen (Tylenol Tab) 650 mg Q6H PRN PO PAIN LEVEL 1-3 OR FEVER; Start at 19:30 Acetaminophen (Tylenol Supp) 650 mg Q6H PRN [place] PAIN LEVEL 1-3 OR FEVER; Start 09/06/16 at 19:30 Acetaminophen/ Hydrocodone Bitart ([place] (5/325)) 1 tab Q6H PRN PO MODERATE PAIN LEVEL 4-6 Last administered on 09/09/16 23:43; Admin Dose 1 TAB; Start at 19:30 Morphine Sulfate (morphine) 2 mg Q4H PRN IV SEVERE PAIN LEVEL 7-10 Last administered on 09/10/16 12:37; Admin Dose 2 MG; Start 09/06/16 at 19:30 Docusate Sodium (Colace) 100 mg Q12H PRN PO CONSTIPATION Last administered on 18:26; Admin Dose 100 MG; Start 09/06/16 at 19:30 Magnesium Hydroxide (Milk Of Mag) 30 ml DAILY PRN PO CONSTIPATION Last administered on 09/09/16 05:59; Admin Dose 30 ML; Start 09/06/16 at 19:30 Bisacodyl (Dulcolax) 5 mg DAILY PRN PO CONSTIPATION Last administered on 18:26; Admin Dose 5 MG; Start 09/06/16 at 19:30 Pantoprazole 40 mg 40 mg DAILY@06 PO Last administered on 09/09/16 05:59; Admin Dose 40 MG; Start 09/08/16 at 06:00 Vancomycin HCl 1.25 gm/Sodium Chloride 250 ml @ 83.333 mls/ hr Q12H IVPB Last administered on 09/09/16 23:43; Admin Dose 83.333 MLS/HR; Start 09/08/16 at 12: 00 Lactated Ringer's (Lr) 1,000 ml @ 100 mls/hr Q10H IV ; Start 09/10/16 at 15:00 ; Stop 09/11/16 at 00:59 Oxycodone HCl (Oxycontin) 10 mg PRE-OP PO ; Start 09/10/16 at 15:00; Stop at 18:00 Pregabalin (Lyrica) 300 mg PRE-OP PO ; Start 09/10/16 at 15:00; Stop 09/10/16 at 18:00 Celecoxib (Celebrex) 400 mg PRE-OP PO ; Start 09/10/16 at 15:00; Stop 09/10/16 at 18:00 Tramadol HCl 50 mg 50 mg PRE-OP PO ; Start 09/10/16 at 15:00; Stop 09/10/16 at 18:00 Cefazolin Sodium/ Dextrose 50 ml @ 100 mls/hr PRE-OP IVPB ; Start 09/10/16 at 15:00; Stop 09/10/16 at 18:00 Tranexamic Acid 630 mg/Sodium Chloride 100 ml @ 200 mls/hr PRE-OP IV ; Start at 15:00; Stop 09/10/16 at 18:00 Tranexamic Acid/ Sodium Chloride 106.3 ml @ 200 mls/hr INTRA-OP IVPB ; Start at 15:00; Stop 09/10/16 at 18:00 Bupivacaine HCl/ Morphine Sulfate/ Epinephrine/ Ketorolac Tromethamine/ Clonidine/Sodium Chloride/ Cefuroxime Sodium (Marcaine 0.5% (Sdv)/Duramorph/ EPINEPHrine/ Toradol/Duraclon/ NS/Zinacef) INTRA-OP IRR ; Start 09/10/16 at 15: 00; Stop 09/10/16 at 18:00 Bupivacaine Liposome (Exparel 266 Mg/ 20 ml Vial) 266 mg INTRA-OP INFIL ; Start 09/10/16 at 15:00; Stop 09/10/16 at 18:00 Miscellaneous Information 1 ea NOTE XX ; Start 09/10/16 at 13:00; Stop 09/14/16 at 12:59 Rifampin (Rifampin) 600 mg DAILY PO Last administered on 09/09/16t 14:20; Admin Dose 600 MG; Start 09/09/16 at 14:00 SHARITA ROBERTS NP Sep 10, 2016 13:18
[2016-09-10] MEDS ORDERED: LIDOCAINE 1% (MPF) 5 ML VIAL SC ONE (13:30)
[2016-09-10] MEDS ORDERED: POLYMYXIN B 500000 UNIT INJ ONE (14:58)
[2016-09-10] MEDS ORDERED: SODIUM CL BACTERIOSTATIC 30 ML INJ ONE (14:58)
[2016-09-10] MEDS ORDERED: TOBRAMYCIN 1.2 GM POWDER ONE (14:59)
[2016-09-10] MEDS ORDERED: TRANEXAMIC ACID IV SCH (15:00)
[2016-09-10] MEDS ORDERED: SOD CHLORIDE 0.9% IV SCH (15:00)
[2016-09-10] MEDS ORDERED: CELECOXIB 400 MG PO X1 DOSE PO SCH (15:00)
[2016-09-10] MEDS ORDERED: BUPIVACAINE LIPOSOME/PF 266 MG/20 ML VIAL INFIL SCH (15:00)
[2016-09-10] MEDS ORDERED: PAIN COCKTAIL-CEFUROXIME IRR SCH ×7 (15:00)
[2016-09-10] MEDS ORDERED: LACTATED RINGER'S 1,000 ML IV SCH (15:00)
[2016-09-10] MEDS ORDERED: CEFAZOLIN 2GM/50 ML (PMX) 50 ML X1 BEFORE INCISION IVPB SCH (15:00)
[2016-09-10] MEDS ORDERED: oxyCODONE (CR) 10 MG TAB [oxyCONTIN] X1 DOSE PO SCH (15:00)
[2016-09-10] MEDS ORDERED: traMADOL 50 MG TAB X 1 DOSE PO SCH (15:00)
[2016-09-10] MEDS ORDERED: PREGABALIN 300 MG PO X1 PO SCH (15:00)
[2016-09-10] MEDS ORDERED: TRANEXAMIC ACID 630 MG in SOD CHLORIDE 0.9% 100 ML IVPB SCH (15:00)
[2016-09-10] MEDS ORDERED: SODIUM HYPOCHLORITE 0.125% 473 ML BTL IRR SCH (16:00)
[2016-09-10] MEDS ORDERED: MIDAZOLAM 1 MG/ML 2 ML INJ ONE (16:01)
[2016-09-10] MEDS ORDERED: METOCLOPRAMIDE 10 MG INJ ONE (16:01)
[2016-09-10] MEDS ORDERED: PROPOFOL 100 ML ONE (16:01)
[2016-09-10] MEDS ORDERED: ROCURONIUM 50 MG INJ ONE (16:01)
[2016-09-10] MEDS ORDERED: FENTAnyl 50 MCG/ML VIAL ONE (16:19)
[2016-09-10] MEDS ORDERED: DEXAMETHASONE 4 MG/ML 1 ML INJ ONE (16:19)
[2016-09-10] MEDS ORDERED: ETOMIDATE 20 MG INJ ONE (16:36)
[2016-09-10] MEDS ORDERED: MINERAL OIL LIGHT 10 ML VIAL ONE (16:47)
[2016-09-10] MEDS ORDERED: METHYLENE BLUE 1% 10 ML INJ ONE (16:47)
[2016-09-10] MEDS ORDERED: EPHEDrine SULFATE 50 MG/5 ML SYG ONE ×2 (17:18→23:39)
[2016-09-10] MEDS: VANCOMYCIN 1 GM INJ ONE ×2 (17:56→17:57)
[2016-09-10] MEDS ORDERED: METOCLOPRAMIDE 10 MG INJ IV PRN (19:00)
[2016-09-10] MEDS ORDERED: ONDANSETRON 4 MG INJ IV PRN ×2 (19:00→22:30)
[2016-09-10] MEDS ORDERED: DIPHENHYDRAMINE 50 MG INJ IV PRN (19:00)
[2016-09-10] MEDS ORDERED: HYDROmorphONE (0.2 MG/ML) 10ML SYG IV PRN ×3 (19:00)
--- NOTE | 2016-09-10 19:01 | PN ---
Date/Time of Note Date/Time of Note DATE: 09/10/16 TIME: 19:00 Assessment/Plan VTE Prophylaxis VTE Prophylaxis Intervention: other Lines/Catheters IV Catheter Type (from Nrsg): Peripheral IV Urinary Cath still in place: No Assessment/Plan Chief Complaint/Hosp Course HIP CELLULITES HX HIP SURGERY PLAN ANTIBIOTIC SURGERY TODAY [facility] Problems: Exam/Review of Systems Vital Signs Vitals Vital Signs Date Time Temp Pulse Resp B/P Pulse Ox O2 Delivery O2 Flow Rate FiO2 09/10/16 07:16 97.9 59 18 115/51 98 09/06/16 20:00 Room Air Intake and Output 09/09/16 09/09/16 09/10/16 15:00 23:00 07:00 Intake Total 1350 ml 1510 ml Output Total 1750 ml 1200 ml Balance -400 ml 310 ml Exam Respiratory: clear to auscultation Cardiovascular: regular rate and rhythm Gastrointestinal: soft Results Result Diagram: 09/08/16 0420 09/10/16 0502 Results 24 hrs Laboratory Tests Test 09/10/16 05:02 09/10/16 11:10 Blood Urea Nitrogen 21 H Creatinine 0.79 Vancomycin Level Trough 12.6 Medications Medications Current Medications Sodium Chloride (NS) 1,000 ml @ 40 mls/hr Q24H IV Last administered on 05:58; Admin Dose 40 MLS/HR; Start 09/06/16 at 19:24 Ondansetron HCl (Zofran Inj) 4 mg Q6H PRN IV NAUSEA AND/OR VOMITING Last administered on 09/07/16 09:17; Admin Dose 4 MG; Start 09/06/16 at 19:30 Acetaminophen (Tylenol Tab) 650 mg Q6H PRN PO PAIN LEVEL 1-3 OR FEVER; Start at 19:30 Acetaminophen (Tylenol Supp) 650 mg Q6H PRN [place] PAIN LEVEL 1-3 OR FEVER; Start 09/06/16 at 19:30 Acetaminophen/ Hydrocodone Bitart ([place] (5/325)) 1 tab Q6H PRN PO MODERATE PAIN LEVEL 4-6 Last administered on 09/09/16 23:43; Admin Dose 1 TAB; Start at 19:30 Morphine Sulfate (morphine) 2 mg Q4H PRN IV SEVERE PAIN LEVEL 7-10 Last administered on 09/10/16 12:37; Admin Dose 2 MG; Start 09/06/16 at 19:30 Docusate Sodium (Colace) 100 mg Q12H PRN PO CONSTIPATION Last administered on 18:26; Admin Dose 100 MG; Start 09/06/16 at 19:30 Magnesium Hydroxide (Milk Of Mag) 30 ml DAILY PRN PO CONSTIPATION Last administered on 09/09/16 05:59; Admin Dose 30 ML; Start 09/06/16 at 19:30 Bisacodyl (Dulcolax) 5 mg DAILY PRN PO CONSTIPATION Last administered on 18:26; Admin Dose 5 MG; Start 09/06/16 at 19:30 Pantoprazole 40 mg 40 mg DAILY@06 PO Last administered on 09/09/16 05:59; Admin Dose 40 MG; Start 09/08/16 at 06:00 Vancomycin HCl 1.25 gm/Sodium Chloride 250 ml @ 83.333 mls/ hr Q12H IVPB Last administered on 09/10/16 13:34; Admin Dose 83.333 MLS/HR; Start 09/08/16 at 12: 00 Lactated Ringer's (Lr) 1,000 ml @ 100 mls/hr Q10H IV ; Start 09/10/16 at 15:00 ; Stop 09/11/16 at 00:59 Miscellaneous Information 1 ea NOTE XX ; Start 09/10/16 at 13:00; Stop 09/14/16 at 12:59 Rifampin (Rifampin) 600 mg DAILY PO Last administered on 09/09/16 14:20; Admin Dose 600 MG; Start 09/09/16 at 14:00 Sodium Hypochlorite ([place] (1/4 Strength)) ONCE IRR ; Start 09/10/16 at 16:00 ; Stop 09/10/16 at 19:00 TONY CADET MD Sep 10, 2016 19:00
[2016-09-10] MEDS: SOD CHLORIDE 0.9% 1,000 ML IV SCH (19:24)
[2016-09-10] MEDS ORDERED: ONDANSETRON 4 MG INJ ONE (19:43)
[2016-09-10] MEDS ORDERED: PHENYLephrine (100 MCG/ML) 5ML SYG ONE (20:05)
[2016-09-10] MEDS ORDERED: ALBUMIN HUMAN 5% 250 ML ONE ×2 (20:17→22:25)
[2016-09-10] MEDS: DOCUSATE SODIUM 100 MG CAP PO SCH (21:00)
[2016-09-10] MEDS: MEPERIDINE 25 MG INJ IV PRN ×2 (22:15→22:27)
[2016-09-10] MEDS: LACTATED RINGER'S 1,000 ML IV SCH (22:20)
--- NOTE | 2016-09-10 22:20 | OPR ---
Date/Time of Note Date/Time of Note DATE: 09/10/16 TIME: 22:19 Operative Report Preoperative Diagnosis Infected Right CORBY Postoperative Diagnosis Same Operation/Procedure Performed I&D Right Hip, Removal of Infected Right CORBY using an ETO, placement of an ABX PMMA Spacer Surgeon: EDDIE HUDSON MD Anesthesia: general, spinal Estimated Blood Loss: other Specimens Aerobic and anaerobic culture x 3 Grafts/Implants Depuy PROSTALAC Complications: None EDDIE HUDSON MD Sep 10, 2016 22:20
[2016-09-10] MEDS ORDERED: BISACODYL 10 MG SUPP PR PRN (22:30)
[2016-09-10] MEDS ORDERED: NA PHOSPHATE/BIPHOS 133 ML ENEMA PR PRN (22:30)
[2016-09-10] MEDS ORDERED: NACL 0.9% 3 ML SYG IV SCH (22:30)
[2016-09-10] MEDS ORDERED: DIPHENHYDRAMINE 25 MG CAP PO PRN (22:30)
[2016-09-10] MEDS ORDERED: ALBUMIN HUMAN 5% 250 ML IV ONE (22:30)
[2016-09-10] MEDS ORDERED: MAGNESIUM HYDROXIDE 30ML CUP PO PRN (22:30)
[2016-09-10 22:42] LABS: HEMATOCRIT 27.2 % (37.0-47.0); HEMOGLOBIN 8.8 g/dl (12.0-16.0)
--- NOTE | 2016-09-10 23:01 | RADRPT ---
PROCEDURE: XR Hip. CLINICAL INDICATION: Postoperative right hip for revision arthroplasty. TECHNIQUE: AP and frog lateral views of the right hip were performed. COMPARISON: Right hip series dated 10/17/2015 FINDINGS: Revision right hip arthroplasty, with antibiotic impregnated methylmethacrylate cement leads in the right hip joint space. The acetabular cup is removed. Interval fracture of the proximal right femur diaphysis with new cerclage wire fixation. Post surgi josef air and fluid over the right hip. Post surgical drain in place. IMPRESSION: 1. Revision arthroplasty with antibiotic beads in the right hip joint space. 2. New fracture of the proximal right femur, with cerclage wire fixation in place. 3. Otherwise, no evident hardware complication. RPTAT: [facility] Physician Patrice Date Time Electronically viewed and signed by Physician Patrice on 09/10/2016 23:01 ISA/
--- NOTE | 2016-09-10 23:03 | RADRPT ---
PROCEDURE: X-ray pelvis. CLINICAL INDICATION: Postoperative for right hip revision arthroplasty. TECHNIQUE: Single frontal view of the pelvis. COMPARISON: Pelvis series dated 06/17/2016. FINDINGS: Revision right hip arthroplasty, with antibiotic impregnated methylmethacrylate cement leads. New c erclage wire fixation over the proximal right femur, with interval fracture at the proximal right fe mur. Post surgical drain in place, with postsurgical surgical air and fluid over the right hip. Remaining osseous structures are without acute fracture or dislocation. The soft tissues are otherw ise unremarkable. IMPRESSION: Right hip revision arthroplasty, with new fracture at the proximal right femur and cerclage wire fix ation. RPTAT: [facility] Physician Patrice Date Time Electronically viewed and signed by Amna Hoffman Physician on 09/10/2016 23:03 RS/
[2016-09-10 23:09] LABS: CALCIUM 7.3 mg/dl (8.4-10.2); CREATININE 0.54 mg/dl (0.44-1.00); POTASSIUM 3.8 mmol/L (3.5-5.1)
[2016-09-10 23:25] LABS: ADD UMIC NO; UR ASCORBIC ACID NEGATIVE (NEGATIVE); UR BACTERIA FEW /HPF (NONE SEEN); UR BILIRUBIN (Dip) NEGATIVE (NEGATIVE); UR BLOOD (Dip) NEGATIVE (NEGATIVE); UR CLARITY SLIGHTLY CLOUDY (CLEAR); UR COLOR YELLOW (YELLOW); UR GLUCOSE (Dip) NEGATIVE (NEGATIVE); UR KETONES (Dip) NEGATIVE (NEGATIVE); UR LEUKOCYTE ESTERASE (Dip) NEGATIVE Leu/ul (NEGATIVE); UR MUCUS FEW /HPF (NONE SEEN); UR NITRITE (Dip) NEGATIVE (NEGATIVE); UR RBC 1 /HPF (0-5); UR SPECIFIC GRAVITY (Dip) 1.017 (1.003-1.030); UR TOTAL PROTEIN (Dip) NEGATIVE (NEGATIVE); UR UROBILINOGEN (Dip) NEGATIVE (NEGATIVE)
[2016-09-10] MEDS ORDERED: IBUPROFEN 800 MG TAB PO PRN (23:30)
[2016-09-11] VITALS (10 sets, daily range): BP systolic 90–116; BP diastolic 53–60; PULSE 80–94; RESP 16–20
[2016-09-11] MEDS ORDERED: EPHEDrine SULFATE 50 MG/5 ML SYG IV PRN
[2016-09-11] MEDS: ACETAMINOPHEN 1000MG/100ML IV 100 ML IVPB SCH ×4 (00:22→18:43)
[2016-09-11] MEDS: traMADol 50 MG TAB PO SCH ×4 (00:23→18:44)
[2016-09-11] MEDS: LACTATED RINGER'S 1,000 ML IV SCH ×3 (00:35→22:20)
[2016-09-11] MEDS: HYDROmorphONE 1 MG/ML SYG IV PRN ×6 (02:02→18:51)
[2016-09-11] MEDS: VANCOMYCIN 1.25 GM in SOD CHLORIDE 0.9% 250 ML IVPB SCH ×2 (02:02→12:02)
--- NOTE | 2016-09-11 03:25 | RADRPT ---
PROCEDURE: Fluoroscopy services. CLINICAL INDICATION: Right hip pain. TECHNIQUE: Fluoroscopy services during placement of right hip arthroplasty exchange. COMPARISON: Pelvis series dated 06/17/2016. FINDINGS: Fluoroscopy services during right hip arthroplasty exchange. Multiple intraoperative spot films wer e obtained at intermediate stages during this procedure and demonstrate removal of previously seen r ight hip arthroplasty and placement of new right hip arthroplasty. The acetabular cup appears to be translucent. There is a new fracture of the proximal right femur, and cerclage wire fixators are p lace. 0.2 minutes of fluoroscopy time were employed during this procedure. IMPRESSION: Fluoroscopy services during right hip arthroplasty exchange. RPTAT: [facility] Physician Patrice Date Time Electronically viewed and signed by Physician Patrice on 09/11/2016 03:25 RS/
[2016-09-11 05:25] LABS: ADD SCAN DIFF NO
[2016-09-11 05:34] LABS: BASOPHILS % 0.1 % (0.0-2.0); EOSINOPHILS # 0.1 10^3/ul (0.0-0.5); EOSINOPHILS % 0.7 % (0.0-7.0); HEMATOCRIT 24.5 % (37.0-47.0); HEMOGLOBIN 7.6 g/dl (12.0-16.0); LYMPHOCYTES # 0.8 10^3/ul (0.8-2.9); LYMPHOCYTES % 8.1 % (15.0-51.0); MEAN CORPUSCULAR HEMOGLOBIN 26.9 pg (29.0-33.0); MEAN CORPUSCULAR VOLUME 86.6 fl (82.0-101.0); MEAN PLATELET VOLUME 10.3 fl (7.4-10.4); MONOCYTE # 0.9 10^3/ul (0.3-0.9); MONOCYTES % 9.1 % (0.0-11.0); NEUTROPHIL # 8.2 10^3/ul (1.6-7.5); NEUTROPHILS % 81.6 % (39.0-77.0); PLATELET COUNT 232 10^3/UL (140-415); RED BLOOD COUNT 2.83 10^6/ul (4.20-5.40); RED CELL DISTRIBUTION WIDTH 15.3 % (11.5-14.5)
[2016-09-11] MEDS: PANTOPRAZOLE (EC) 40 MG TAB PO SCH ×2 (06:23→18:43)
[2016-09-11 07:05] LABS: ALBUMIN 3.1 g/dl (3.3-4.9); ALBUMIN/GLOBULIN RATIO 1.4; BILIRUBIN,INDIRECT 0.3 mg/dl (0-1.1); BILIRUBIN,TOTAL 0.3 mg/dl (0.2-1.3); CALCIUM 7.9 mg/dl (8.4-10.2); CREATININE 0.54 mg/dl (0.44-1.00); POTASSIUM 4.7 mmol/L (3.5-5.1); TOTAL PROTEIN 5.3 g/dl (6.1-8.1)
[2016-09-11] MEDS: ESCITALOPRAM 10 MG TAB PO SCH ×2 (08:07→08:15)
[2016-09-11] MEDS: DOCUSATE SODIUM 100 MG CAP PO SCH ×2 (08:07→21:35)
[2016-09-11] MEDS: RIFAMPIN 300 MG CAP PO SCH (08:15)
--- NOTE | 2016-09-11 08:43 | PN ---
Date/Time of Note Date/Time of Note DATE: 09/11/16 TIME: 08:41 Assessment/Plan Lines/Catheters IV Catheter Type (from Nrsg): Peripheral IV [place] in Place (from Nrsg): Yes Assessment/Plan Assessment/Plan POD # 1. Stable. -Continue drain -Continue VAC -Vanco and Rifampin for now -Transfuse 2 units PRBC -Pain meds -SCDs -Hold ASA today until h/h stabilizes -OOB with PT tomorrow -TDWB Right LE -Hip precautions Subjective 24 Hr Interval Summary Resting comfortably. Minimal pain. Exam/Review of Systems Vital Signs Vitals Vital Signs Date Time Temp Pulse Resp B/P Pulse Ox O2 Delivery O2 Flow Rate FiO2 09/11/16 08:08 98.3 92 16 90/54 92 09/11/16 04:59 Nasal Cannula 09/11/16 04:05 2.0 Intake and Output 09/10/16 09/10/16 09/11/16 15:00 23:00 07:00 Intake Total 3500 ml 1055 ml Output Total 1500 ml 1320 ml Balance 2000 ml -265 ml Exam Free Text/Dictation Hemovac: 420 cc Dressing dry VAC in place Thigh soft 5/5 Tibialis Anterior, EHL, Gastroc Soleus, Peroneals Normal sensation Palpable DP/PT, CR < 2 Sec No distal edema XRAYS: Right PROSTALAC in good position. Head located in acetabulum Results Result Diagram: 09/11/16 0458 09/11/16 0458 EDDIE HUDSON MD Sep 11, 2016 08:43
[2016-09-11] MEDS ORDERED: VANCOMYCIN 1 GM (PMX) 250 ML IVPB SCH (09:00)
[2016-09-11] MEDS ORDERED: DOCUSATE SODIUM 100 MG CAP PO SCH (09:00)
--- NOTE | 2016-09-11 12:15 | CONS ---
Date/Time of Note Date/Time of Note DATE: 09/11/16 TIME: 12:12 Assessment/Plan Assessment/Plan Chief Complaint/Hosp Course SUBJECTIVE: No events overnight. No fevers. Sleeping, looks comfortable MICROBIOLOGY: Blood cultures negative. R hip drainage + MRSA on 08/13/2016 ANTIMICROBIALS: The patient is on: 1. Vancomycin. 2. Rifampin PHYSICAL EXAMINATION: GENERAL: Fragile, elderly woman who is in no distress. HEENT: Head atraumatic, normocephalic. Sclerae anicteric. Buccal mucosa pink. NECK: Supple. CHEST: Rise symmetrical. Breath sounds clear. HEART: S1, S2. ABDOMEN: Soft, bowel tones present. EXTREMITIES: Without cyanosis, R hip swollen. ASSESSMENT: 1. Infected right hip arthroplasty, status post infected arthroplasty removal, postop day #1 2. Anemia PLAN: The patient remains stable, continue present care, antibiotics. Follow ortho recommendations. Pending PICC line placement. Patient will require IV antibiotics for 6-8 weeks DW staff Problems: Consultation Date/Type/Reason Admit Date/Time Sep 06, 2016 at 15:47 Type of Consultation: Infectious disease Exam/Review of Systems Vital Signs Vitals Vital Signs Date Time Temp Pulse Resp B/P Pulse Ox O2 Delivery O2 Flow Rate FiO2 09/11/16 08:08 98.3 92 16 90/54 92 09/11/16 04:59 Nasal Cannula 09/11/16 04:05 2.0 Intake and Output 09/10/16 09/10/16 09/11/16 15:00 23:00 07:00 Intake Total 3500 ml 1055 ml Output Total 1500 ml 1320 ml Balance 2000 ml -265 ml Results Result Diagram: 09/11/16 0458 09/11/16 0458 Results 24 hrs Laboratory Tests Test 09/10/16 22:10 09/10/16 22:30 09/11/16 04:58 Urine Color YELLOW Urine Clarity SLIGHTLY CLOUDY A Urine pH 5.0 Urine Specific [employer] 1.017 Urine Ketones NEGATIVE Urine Nitrite NEGATIVE Urine Bilirubin NEGATIVE Urine Urobilinogen NEGATIVE Urine Leukocyte Esterase NEGATIVE Urine Microscopic RBC 1 Urine Microscopic WBC 3 Urine Bacteria FEW A Urine Mucus FEW A Urine Hemoglobin NEGATIVE Urine Glucose NEGATIVE Urine Total Protein NEGATIVE Hemoglobin 8.8 #L 7.6 L Hematocrit 27.2 #L 24.5 L Sodium Level 136 137 Potassium Level 3.8 4.7 Chloride Level 107 107 Carbon Dioxide Level 24 27 Anion Gap 9 8 Blood Urea Nitrogen 14 14 Creatinine 0.54 0.54 Glucose Level 157 109 # Calcium Level 7.3 L 7.9 L White Blood Count 10.0 # Red Blood Count 2.83 #L Mean Corpuscular Volume 86.6 Mean Corpuscular Hemoglobin 26.9 L Mean Corpuscular Hemoglobin Concent 31.0 L Red Cell Distribution Width 15.3 H Platelet Count 232 # Mean Platelet Volume 10.3 Neutrophils % 81.6 H Lymphocytes % 8.1 L Monocytes % 9.1 Eosinophils % 0.7 Basophils % 0.1 Nucleated Red Blood Cells % 0.0 Neutrophils # 8.2 H Lymphocytes # 0.8 Monocytes # 0.9 Eosinophils # 0.1 Basophils # 0.0 Nucleated Red Blood Cells # 0.0 Total Bilirubin 0.3 Direct Bilirubin 0.00 Indirect Bilirubin 0.3 Aspartate Amino Transf (AST/SGOT) 32 Alanine Aminotransferase (ALT/SGPT) 30 Alkaline Phosphatase 50 Total Protein 5.3 L Albumin 3.1 L Globulin 2.20 Albumin/Globulin Ratio 1.40 Medications Medications Current Medications Sodium Chloride (NS) 1,000 ml @ 40 mls/hr Q24H IV Last administered on 05:58; Admin Dose 40 MLS/HR; Start 09/06/16 at 19:24 Ondansetron HCl (Zofran Inj) 4 mg Q6H PRN IV NAUSEA AND/OR VOMITING Last administered on 09/07/16 09:17; Admin Dose 4 MG; Start 09/06/16 at 19:30 Acetaminophen (Tylenol Tab) 650 mg Q6H PRN PO PAIN LEVEL 1-3 OR FEVER; Start at 19:30 Acetaminophen (Tylenol Supp) 650 mg Q6H PRN [place] PAIN LEVEL 1-3 OR FEVER; Start 09/06/16 at 19:30 Acetaminophen/ Hydrocodone Bitart ([place] (5/325)) 1 tab Q6H PRN PO MODERATE PAIN LEVEL 4-6 Last administered on 09/09/16 23:43; Admin Dose 1 TAB; Start at 19:30 Morphine Sulfate (morphine) 2 mg Q4H PRN IV SEVERE PAIN LEVEL 7-10 Last administered on 09/10/16 12:37; Admin Dose 2 MG; Start 09/06/16 at 19:30 Docusate Sodium (Colace) 100 mg Q12H PRN PO CONSTIPATION Last administered on 18:26; Admin Dose 100 MG; Start 09/06/16 at 19:30 Bisacodyl 5 mg 5 mg DAILY PRN PO CONSTIPATION Last administered on 09/07/16 18 :26; Admin Dose 5 MG; Start 09/06/16 at 19:30 Vancomycin HCl/ Sodium Chloride (Vancocin/NS) 250 ml @ 83.333 mls/ hr Q12H IVPB Last administered on 09/11/16 12:02; Admin Dose 83.333 MLS/HR; Start at 12:00 Miscellaneous Information 1 ea NOTE XX ; Start 09/10/16 at 13:00; Stop 09/14/16 at 12:59 Rifampin (Rifampin) 600 mg DAILY PO Last administered on 09/11/16 08:15; Admin Dose 600 MG; Start 09/09/16 at 14:00 Escitalopram Oxalate (Lexapro) 5 mg DAILY PO ; Start 09/11/16 at 09:00 Ibuprofen 800 mg 800 mg Q6H PRN PO PAIN; Start 09/10/16 at 23:30 Lactated Ringer's 1,000 ml @ 125 mls/hr Q8H IV Last administered on 09/11/16 00:35; Admin Dose 125 MLS/HR; Start 09/10/16 at 22:20 Acetaminophen (Ofirmev 1000mg/ 100ml Iv) 100 ml @ 400 mls/hr Q6 IVPB Last administered on 09/11/16 11:33; Admin Dose 400 MLS/HR; Start 09/11/16 at 00:00 ; Stop 09/11/16 at 23:59 Tramadol HCl (Ultram) 50 mg Q6 PO Last administered on 09/11/16 12:02; Admin Dose 50 MG; Start 09/10/16 at 12:00; Stop 09/13/16 at 11:59 Oxycodone HCl (Roxicodone) 5 mg Q4H PRN PO PAIN LEVEL 1-3; Start 09/10/16 at 22 :30 Oxycodone HCl (Roxicodone) 10 mg Q4H PRN PO PAIN LEVEL 4-7; Start 09/10/16 at 22:30 Hydromorphone HCl (Dilaudid) 1 mg Q3H PRN IV PAIN LEVEL 8-10 Last administered on 09/11/16 11:33; Admin Dose 1 MG; Start 09/10/16 at 22:30 Bisacodyl (Dulcolax Supp) 10 mg Q12H PRN [place] CONSTIPATION; Start 09/10/16 at 22: 30 Magnesium Hydroxide (Milk Of Mag) 30 ml BID PRN PO CONSTIPATION; Start at 22:30 Sodium Biphosphate/ Sodium Phosphate (Fleet Enema) 133 ml DAILY PRN [place] CONSTIPATION; Start 09/10/16 at 22:30 Docusate Sodium (Colace) 100 mg BID PO Last administered on 09/11/16 08:07; Admin Dose 100 MG; Start 09/10/16 at 21:00 Diphenhydramine HCl (Benadryl) 25 mg Q6H PRN PO PRURITUS; Start 09/10/16 at 22: 30 Aspirin (Ecotrin) 325 mg BID PO ; Start 09/12/16 at 09:00; Stop 10/14/16 at 08: 59 Pantoprazole (Protonix Tab) 40 mg BID@06,18 PO Last administered on 09/11/16 06:23; Admin Dose 40 MG; Start 09/11/16 at 06:00 SHARITA ROBERTS NP Sep 11, 2016 12:15
--- NOTE | 2016-09-11 13:19 | PN ---
Date/Time of Note Date/Time of Note DATE: 09/11/16 TIME: 13:17 Assessment/Plan VTE Prophylaxis VTE Prophylaxis Intervention: SCD's Lines/Catheters IV Catheter Type (from Nrsg): Peripheral IV Urinary Cath still in place: Yes Subjective 24 Hr Interval Summary Free Text/Dictation Anesthesia Note: A 60 year female s/p removal of infected hip arthroplasty and spacer placement under GA and spinal pod #1 is doing fine. pain is controlled. no n/v, headache, itching, back pain. care per surgery Exam/Review of Systems Vital Signs Vitals Vital Signs Date Time Temp Pulse Resp B/P Pulse Ox O2 Delivery O2 Flow Rate FiO2 09/11/16 08:08 98.3 92 16 90/54 92 09/11/16 04:59 Nasal Cannula 09/11/16 04:05 2.0 Intake and Output 09/10/16 09/10/16 09/11/16 15:00 23:00 07:00 Intake Total 3500 ml 1055 ml Output Total 1500 ml 1320 ml Balance 2000 ml -265 ml Results Result Diagram: 09/11/16 0458 09/11/16 0458 Results 24 hrs Laboratory Tests Test 09/10/16 22:10 09/10/16 22:30 09/11/16 04:58 Urine Color YELLOW Urine Clarity SLIGHTLY CLOUDY A Urine pH 5.0 Urine Specific [place] 1.017 Urine Ketones NEGATIVE Urine Nitrite NEGATIVE Urine Bilirubin NEGATIVE Urine Urobilinogen NEGATIVE Urine Leukocyte Esterase NEGATIVE Urine Microscopic RBC 1 Urine Microscopic WBC 3 Urine Bacteria FEW A Urine Mucus FEW A Urine Hemoglobin NEGATIVE Urine Glucose NEGATIVE Urine Total Protein NEGATIVE Hemoglobin 8.8 #L 7.6 L Hematocrit 27.2 #L 24.5 L Sodium Level 136 137 Potassium Level 3.8 4.7 Chloride Level 107 107 Carbon Dioxide Level 24 27 Anion Gap 9 8 Blood Urea Nitrogen 14 14 Creatinine 0.54 0.54 Glucose Level 157 109 # Calcium Level 7.3 L 7.9 L White Blood Count 10.0 # Red Blood Count 2.83 #L Mean Corpuscular Volume 86.6 Mean Corpuscular Hemoglobin 26.9 L Mean Corpuscular Hemoglobin Concent 31.0 L Red Cell Distribution Width 15.3 H Platelet Count 232 # Mean Platelet Volume 10.3 Neutrophils % 81.6 H Lymphocytes % 8.1 L Monocytes % 9.1 Eosinophils % 0.7 Basophils % 0.1 Nucleated Red Blood Cells % 0.0 Neutrophils # 8.2 H Lymphocytes # 0.8 Monocytes # 0.9 Eosinophils # 0.1 Basophils # 0.0 Nucleated Red Blood Cells # 0.0 Total Bilirubin 0.3 Direct Bilirubin 0.00 Indirect Bilirubin 0.3 Aspartate Amino Transf (AST/SGOT) 32 Alanine Aminotransferase (ALT/SGPT) 30 Alkaline Phosphatase 50 Total Protein 5.3 L Albumin 3.1 L Globulin 2.20 Albumin/Globulin Ratio 1.40 Medications Medications Current Medications Sodium Chloride (NS) 1,000 ml @ 40 mls/hr Q24H IV Last administered on 05:58; Admin Dose 40 MLS/HR; Start 09/06/16 at 19:24 Ondansetron HCl (Zofran Inj) 4 mg Q6H PRN IV NAUSEA AND/OR VOMITING Last administered on 09/07/16 09:17; Admin Dose 4 MG; Start 09/06/16 at 19:30 Acetaminophen (Tylenol Tab) 650 mg Q6H PRN PO PAIN LEVEL 1-3 OR FEVER; Start at 19:30 Acetaminophen (Tylenol Supp) 650 mg Q6H PRN [place] PAIN LEVEL 1-3 OR FEVER; Start 09/06/16 at 19:30 Acetaminophen/ Hydrocodone Bitart ([place] (5/325)) 1 tab Q6H PRN PO MODERATE PAIN LEVEL 4-6 Last administered on 09/09/16 23:43; Admin Dose 1 TAB; Start at 19:30 Morphine Sulfate (morphine) 2 mg Q4H PRN IV SEVERE PAIN LEVEL 7-10 Last administered on 09/10/16 12:37; Admin Dose 2 MG; Start 09/06/16 at 19:30 Docusate Sodium (Colace) 100 mg Q12H PRN PO CONSTIPATION Last administered on 18:26; Admin Dose 100 MG; Start 09/06/16 at 19:30 Bisacodyl 5 mg 5 mg DAILY PRN PO CONSTIPATION Last administered on 09/07/16 18 :26; Admin Dose 5 MG; Start 09/06/16 at 19:30 Vancomycin HCl/ Sodium Chloride (Vancocin/NS) 250 ml @ 83.333 mls/ hr Q12H IVPB Last administered on 6/28/17at 12:02; Admin Dose 83.333 MLS/HR; Start at 12:00 Miscellaneous Information 1 ea NOTE XX ; Start 09/10/16 at 13:00; Stop 09/14/16 at 12:59 Rifampin (Rifampin) 600 mg DAILY PO Last administered on 09/11/16 08:15; Admin Dose 600 MG; Start 09/09/16 at 14:00 Escitalopram Oxalate (Lexapro) 5 mg DAILY PO ; Start 09/11/16 at 09:00 Ibuprofen 800 mg 800 mg Q6H PRN PO PAIN; Start 09/10/16 at 23:30 Lactated Ringer's 1,000 ml @ 125 mls/hr Q8H IV Last administered on 09/11/16 00:35; Admin Dose 125 MLS/HR; Start 09/10/16 at 22:20 Acetaminophen (Ofirmev 1000mg/ 100ml Iv) 100 ml @ 400 mls/hr Q6 IVPB Last administered on 09/11/16 11:33; Admin Dose 400 MLS/HR; Start 09/11/16 at 00:00 ; Stop 09/11/16 at 23:59 Tramadol HCl (Ultram) 50 mg Q6 PO Last administered on 09/11/16 12:02; Admin Dose 50 MG; Start 09/10/16 at 12:00; Stop 09/13/16 at 11:59 Oxycodone HCl (Roxicodone) 5 mg Q4H PRN PO PAIN LEVEL 1-3; Start 09/10/16 at 22 :30 Oxycodone HCl (Roxicodone) 10 mg Q4H PRN PO PAIN LEVEL 4-7; Start 09/10/16 at 22:30 Hydromorphone HCl (Dilaudid) 1 mg Q3H PRN IV PAIN LEVEL 8-10 Last administered on 09/11/16 11:33; Admin Dose 1 MG; Start 09/10/16 at 22:30 Bisacodyl (Dulcolax Supp) 10 mg Q12H PRN [place] CONSTIPATION; Start 09/10/16 at 22: 30 Magnesium Hydroxide (Milk Of Mag) 30 ml BID PRN PO CONSTIPATION; Start at 22:30 Sodium Biphosphate/ Sodium Phosphate (Fleet Enema) 133 ml DAILY PRN [place] CONSTIPATION; Start 09/10/16 at 22:30 Docusate Sodium (Colace) 100 mg BID PO Last administered on 09/11/16 08:07; Admin Dose 100 MG; Start 09/10/16 at 21:00 Diphenhydramine HCl (Benadryl) 25 mg Q6H PRN PO PRURITUS; Start 09/10/16 at 22: 30 Aspirin (Ecotrin) 325 mg BID PO ; Start 09/12/16 at 09:00; Stop 10/14/16 at 08: 59 Pantoprazole (Protonix Tab) 40 mg BID@06,18 PO Last administered on 09/11/16 06:23; Admin Dose 40 MG; Start 09/11/16 at 06:00 LEEANNE REIS MD Sep 11, 2016 13:19
[2016-09-11] MEDS: oxyCODONE 5 MG TAB PO PRN ×2 (13:27→21:35)
--- NOTE | 2016-09-11 18:19 | OPR ---
Date/Time of Note Date/Time of Note DATE: 09/11/16 TIME: 17:55 Operative Report Preoperative Diagnosis Infected Right CORBY Postoperative Diagnosis Same Operation Performed I&D Right Hip, Removal of Infected Right CORBY using an ETO, placement of an ABX PMMA Spacer Surgeon: EDDIE HUDSON MD Anesthesia: general, spinal Estimated Blood Loss: other Specimens Aerobic and anaerobic culture x 3 Grafts/Implants Depuy PROSTALAC Complications: None Procedure Description DATE: 09/10/16 PREOPERATIVE DIAGNOSIS: Infected right total hip arthroplasty POSTOPERATIVE DIAGNOSIS: Infected right total hip arthroplasty OPERATION PERFORMED: Irrigation and debridement of right hip, removal of infected right total hip arthroplasty using an extended trochanteric osteotomy, placement of antibiotic impregnated cement spacer SURGEON: Eddie Hudson MD COMPONENTS USED: Depuy size 62/40 neutral polyethylene liner, size 3 x 200 mm PROSTALAC stem, 40+1.5 ceramic head ANESTHESIA: Spinal plus general endotracheal intubation. ESTIMATED BLOOD LOSS: 1,000 mL INTRAVENOUS FLUIDS: 3,200 mL SPECIMENS: Femoral head. DRAINS: Hemovac x 2 COMPLICATIONS: None. DISPOSITION: The patient tolerated the procedure well and was taken to the recovery room in stable condition. INDICATIONS: The patient is a 60-year-old woman who previously had a right total hip arthroplasty by another surgeon that subsequently became infected with MRSA. I felt that she would require a two-stage exchange procedure with the first stage involving removal of the infected total hip arthroplasty and placement of an antibiotic impregnated cement spacer. Because the prosthesis is well fixed I explained to her that she would likely require an extended trochanteric osteotomy to remove the femoral stem. The risks, benefits, and alternatives of the procedure were explained in detail to the patient. I explained the risks of the surgery to include, but not be limited to, bleeding and possible need for blood transfusion; infection ( residual and/or recurrent, and possibility of being unable to reimplant the prosthesis and need for permanent resection arthroplasty or possible amputation requiring a hip disarticulation), pain; stiffness; malunion, nonunion; neurovascular injury with possible numbness, weakness, and/or paralysis anywhere from the hip down to the toes; fracture, instability, or dislocation; leg length inequality; wear and/or loosening of the prosthesis and possible need for future revision; blood clots and pulmonary embolism; and anesthetic complications such as heart attack, stroke, GI bleed, pneumonia, and/or . Ample time was allowed for the patient to ask questions, all of which were addressed and answered. The patient understood the risks involved and wished to proceed. Informed consent was signed prior to the procedure. PROCEDURE: The patient's right hip was initialed with a marking pen in the preoperative area to identify the correct operative site. The patient was brought to the operating room and transferred from the [facility] to the operating table where a spinal anesthesia was administered. The patient was then anesthetized and intubated. A Husdon catheter was placed. A timeout was performed to confirm that the right side was the correct operative site. The patient had been given vancomycin earlier in the day at the appropriate time as based on the pharmacy dosing and was also given 2 g of Ancef within one hour prior to the procedure. The patient was turned to the lateral decubitus position with the operative side up. An axillary roll was placed under the chest wall. The patient was secured onto the pegboard, and all bony prominences were well padded. The operative hip and lower extremity were prepped and draped in the usual sterile fashion. The previous posterolateral scar was excised. This was carried down through subcutaneous tissue and fat with sharp dissection. The iliotibial band and gluteus genesis muscle fascia were identified. There was a small area of purulent fluid tracking through the fascia down into the joint space with exposed Ethibond suture protruding. This was swabbed for aerobic and anaerobic culture and all necrotic tissue was debrided. The iliotibial band was incised distally to gain exposure. The gluteus genesis muscle fascia and muscle were divided as well. The posterior capsule and short external rotators were identified and taken down in 1 soft tissue sleeve off the greater trochanter and tagged with #2 PDS suture. The synovial fluid was encountered and noted to be cloudy and swab for aerobic and anaerobic cultures. The quadratus femoris and gluteus genesis tendon were released for optimal visualization. The femoral head was dislocated from the acetabulum. The stem was well fixed. The ceramic head was disimpacted from the femoral component. I used the flexible osteotomes to try and free up the bone interface with the prosthesis proximally but the stem was solidly fixed. At this point I felt an extended trochanteric osteotomy was necessary to safely remove the stem. At this point an oscillating saw was used to make the extended trochanteric osteotomy along the posterior aspect of the femur from the greater trochanter to a point about 12 cm distal to the tip of the greater trochanter correlating with the area where the porous coating of the stem ended on x-ray. The transverse limb of the osteotomy was carried across the lateral aspect of the femur. A portion of the anterior osteotomy was made with the saw and then osteotomes were used in a stacked fashion to elevate the fragment off the stem. This was lifted off in 1 piece. The stem remained solidly fixed distally. The rotational spines were solidly fixed into the femoral diaphysis. It took several minutes of using the flexible osteotomes and threaded Steinmann pins to free this up. The extraction device was threaded to the shoulder of the prosthesis and I was able to then extract the entire stem from the femur. At this point the attention was turned towards the acetabulum. The short and long Mejia explant blades were used to get around the acetabulum. The liner had been removed and the 3 screws removed and then the liner placed back into the acetabulum. I was able to remove the cup with minimal bone loss. I then reamed the acetabulum with a 55 reamer to get to healthy bleeding subchondral bone. The entire wound was irrigated with 3 L of antibiotic saline with pulsatile lavage and then a one-to-one mixture of Betadine and hydrogen peroxide. I then irrigated the entire wound with quarter strength Dakin's solution. The hip was then irrigated with additional antibiotics to have pulsatile lavage. I changed my gloves as did all the assistance and fresh drapes were placed around the hip. I then placed a trial stem down the femur and reduced the osteotomy fragment into place and held this in place with 2 cerclage cables tensioned 200 kg of pressure. A prophylactic cable was placed around the diaphyseal portion of the femur. The excess cable was cut. At this point I broached the femur to accommodate a size 3. I then opened up a size 3 x 200 mm length Prostalac stem. I then mixed cement for the Prostalac stem. Each bag of cement containing 3 g of vancomycin and 1.2 g of tobramycin and was mixed with methylene blue. The stem was placed in the mold and allowed to set on the back table. During this time I turned my attention towards the acetabulum. An additional 2 bags of cement were mixed with methylene blue and each bag containing 3 g of vancomycin 1.2 g of tobramycin. Once in the doughy stage the 62/40 neutral polyethylene liner was cemented into the acetabulum with about 45 of abduction and 20-25 of anteversion. This was held in place until the cement was completely hardened. All excess cement had been removed. The femoral stem was removed from the mold and then the excess edges were removed and the stem was impacted into the femur keeping the stem anteverted 20- 25. I trialed with a 40+1.5 head. The hip was taken through range of motion and was quite stable. There was 110 of flexion. At 90 of hip flexion, neutral abduction, there was no posterior instability with 80 of internal rotation. In the position of sleep the hip was stable posteriorly to 85 of internal rotation. The hip came to full extension with no posterior impingement or anterior instability. The Ranawat sign showed a combined forward flexion 45. A crosstable AP C-arm image was obtained showing the stem to be in good position and bypass in the extended trochanteric osteotomy fragment. I then dislocated the head and cleaned the trunnion and placed the ceramic head onto the trunnion and reduced it into the acetabulum the hip had the same range of motion and stability as with the trials. At this point the soft tissues were infiltrated a mixture of half percent bupivacaine, 30 mg of Toradol, 4 mg of Duramorph, and 266 mg of liposomal bupivacaine. Stimulan beads were then mixed with vancomycin and tobramycin and placed in the deep portion of the wound. Hemostasis was good. A Hemovac drain was placed in the deep portion of the wound and brought out the anterolateral thigh. The vastus lateralis was repaired back to the posterior intermuscular septum with interrupted #1 PDS sutures. The posterior capsule and short external rotators sleeve was repaired back to the trailing edge of the abductors with interrupted #2 PDS suture. The sciatic nerve was palpated and noted to be intact with no undue tension. Leg lengths were palpated to be equal. The iliotibial band and gluteus genesis fascia were repaired with a running #2 Stratafix suture. The area of purulence and necrosis of the iliotibial band had been excised completely and closed with the Stratafix. A second Hemovac drain was placed in the subcutaneous tissue. The subtenons layer was closed with a running 2 oh strata fix. The skin was closed with 3-0 Vicryl and then interrupted 3-0 Prolene vertical mattress sutures. The skin incision was then covered with Adaptic and a incisional wound VAC which was sealed to suction. The drains were secured with 3-0 nylon and covered with 4 x 4's and Tegaderm dressings. The sponge and needle counts were correct at the end of the case. The patient was taken out of the pegboard and transferred to the [facility] where she was placed in the supine position with an abduction pillow between her legs. She was awakened and extubated and taken to the recovery room in stable condition. EDDIE HUDSON MD Sep 11, 2016 18:19
[2016-09-11] MEDS: SOD CHLORIDE 0.9% 1,000 ML IV SCH (19:24)
--- NOTE | 2016-09-11 23:02 | PN ---
Date/Time of Note Date/Time of Note DATE: 09/11/16 TIME: 23:00 Assessment/Plan VTE Prophylaxis VTE Prophylaxis Intervention: other Lines/Catheters IV Catheter Type (from Nrs): Peripheral IV Urinary Cath still in place: Yes Reason Cath still needed: other (indicate) Assessment/Plan Chief Complaint/Hosp Course HIP CELLULITES HX HIP SURGERY s/p rt hip surgery post op anemia PLAN ANTIBIOTIC per surgery CK LABS Problems: Subjective 24 Hr Interval Summary Cardiovascular: no complaints Musculoskeletal: bone/joint pain (+) Exam/Review of Systems Vital Signs Vitals Vital Signs Date Time Temp Pulse Resp B/P Pulse Ox O2 Delivery O2 Flow Rate FiO2 09/11/16 20:19 99.0 56 20 97/56 98 09/11/16 04:59 Nasal Cannula 09/11/16 04:05 2.0 Intake and Output 09/10/16 09/10/16 09/11/16 15:00 23:00 07:00 Intake Total 3500 ml 1055 ml Output Total 1500 ml 1320 ml Balance 2000 ml -265 ml Exam Respiratory: clear to auscultation Cardiovascular: regular rate and rhythm Gastrointestinal: soft Musculoskeletal: range of motion (pain+) Results Result Diagram: 09/11/16 0458 09/11/16 0458 Results 24 hrs Laboratory Tests Test 09/11/16 04:58 White Blood Count 10.0 # Red Blood Count 2.83 #L Hemoglobin 7.6 L Hematocrit 24.5 L Mean Corpuscular Volume 86.6 Mean Corpuscular Hemoglobin 26.9 L Mean Corpuscular Hemoglobin Concent 31.0 L Red Cell Distribution Width 15.3 H Platelet Count 232 # Mean Platelet Volume 10.3 Neutrophils % 81.6 H Lymphocytes % 8.1 L Monocytes % 9.1 Eosinophils % 0.7 Basophils % 0.1 Nucleated Red Blood Cells % 0.0 Neutrophils # 8.2 H Lymphocytes # 0.8 Monocytes # 0.9 Eosinophils # 0.1 Basophils # 0.0 Nucleated Red Blood Cells # 0.0 Sodium Level 137 Potassium Level 4.7 Chloride Level 107 Carbon Dioxide Level 27 Anion Gap 8 Blood Urea Nitrogen 14 Creatinine 0.54 Glucose Level 109 # Calcium Level 7.9 L Total Bilirubin 0.3 Direct Bilirubin 0.00 Indirect Bilirubin 0.3 Aspartate Amino Transf (AST/SGOT) 32 Alanine Aminotransferase (ALT/SGPT) 30 Alkaline Phosphatase 50 Total Protein 5.3 L Albumin 3.1 L Globulin 2.20 Albumin/Globulin Ratio 1.40 Medications Medications Current Medications Sodium Chloride (NS) 1,000 ml @ 40 mls/hr Q24H IV Last administered on 05:58; Admin Dose 40 MLS/HR; Start 09/06/16 at 19:24 Ondansetron HCl (Zofran Inj) 4 mg Q6H PRN IV NAUSEA AND/OR VOMITING Last administered on 09/07/16 09:17; Admin Dose 4 MG; Start 09/06/16 at 19:30 Acetaminophen (Tylenol Tab) 650 mg Q6H PRN PO PAIN LEVEL 1-3 OR FEVER; Start at 19:30 Acetaminophen (Tylenol Supp) 650 mg Q6H PRN LA PAIN LEVEL 1-3 OR FEVER; Start 09/06/16 at 19:30 Acetaminophen/ Hydrocodone Bitart ([place] (5/325)) 1 tab Q6H PRN PO MODERATE PAIN LEVEL 4-6 Last administered on 09/09/16 23:43; Admin Dose 1 TAB; Start at 19:30 Morphine Sulfate (morphine) 2 mg Q4H PRN IV SEVERE PAIN LEVEL 7-10 Last administered on 09/10/16 12:37; Admin Dose 2 MG; Start 09/06/16 at 19:30 Docusate Sodium (Colace) 100 mg Q12H PRN PO CONSTIPATION Last administered on 18:26; Admin Dose 100 MG; Start 09/06/16 at 19:30 Bisacodyl 5 mg 5 mg DAILY PRN PO CONSTIPATION Last administered on 09/07/16 18 :26; Admin Dose 5 MG; Start 09/06/16 at 19:30 Vancomycin HCl/ Sodium Chloride (Vancocin/NS) 250 ml @ 83.333 mls/ hr Q12H IVPB Last administered on 09/11/16 12:02; Admin Dose 83.333 MLS/HR; Start at 12:00 Miscellaneous Information 1 ea NOTE XX ; Start 09/10/16 at 13:00; Stop 09/14/16 at 12:59 Rifampin (Rifampin) 600 mg DAILY PO Last administered on 09/11/16 08:15; Admin Dose 600 MG; Start 09/09/16 at 14:00 Escitalopram Oxalate (Lexapro) 5 mg DAILY PO ; Start 09/11/16 at 09:00 Ibuprofen 800 mg 800 mg Q6H PRN PO PAIN; Start 09/10/16 at 23:30 Lactated Ringer's 1,000 ml @ 125 mls/hr Q8H IV Last administered on 09/11/16 14:20; Admin Dose 125 MLS/HR; Start 09/10/16 at 22:20 Acetaminophen (Ofirmev 1000mg/ 100ml Iv) 100 ml @ 400 mls/hr Q6 IVPB Last administered on 09/11/16 18:43; Admin Dose 400 MLS/HR; Start 09/11/16 at 00:00 ; Stop 09/11/16 at 23:59 Tramadol HCl (Ultram) 50 mg Q6 PO Last administered on 09/11/16 18:44; Admin Dose 50 MG; Start 09/10/16 at 12:00; Stop 09/13/16 at 11:59 Oxycodone HCl (Roxicodone) 5 mg Q4H PRN PO PAIN LEVEL 1-3; Start 09/10/16 at 22 :30 Oxycodone HCl (Roxicodone) 10 mg Q4H PRN PO PAIN LEVEL 4-7 Last administered on 09/11/16 21:35; Admin Dose 10 MG; Start 09/10/16 at 22:30 Hydromorphone HCl (Dilaudid) 1 mg Q3H PRN IV PAIN LEVEL 8-10 Last administered on 09/11/16 18:51; Admin Dose 1 MG; Start 09/10/16 at 22:30 Bisacodyl (Dulcolax Supp) 10 mg Q12H PRN LA CONSTIPATION; Start 09/10/16 at 22: 30 Magnesium Hydroxide (Milk Of Mag) 30 ml BID PRN PO CONSTIPATION; Start at 22:30 Sodium Biphosphate/ Sodium Phosphate (Fleet Enema) 133 ml DAILY PRN LA CONSTIPATION; Start 09/10/16 at 22:30 Docusate Sodium (Colace) 100 mg BID PO Last administered on 09/11/16 21:35; Admin Dose 100 MG; Start 09/10/16 at 21:00 Diphenhydramine HCl (Benadryl) 25 mg Q6H PRN PO PRURITUS; Start 09/10/16 at 22: 30 Aspirin (Ecotrin) 325 mg BID PO ; Start 09/12/16 at 09:00; Stop 10/14/16 at 08: 59 Pantoprazole (Protonix Tab) 40 mg BID@06,18 PO Last administered on 09/11/16t 18:43; Admin Dose 40 MG; Start 09/11/16 at 06:00 TONY CADET MD Sep 11, 2016 23:02
[2016-09-12] MEDS: HYDROmorphONE 1 MG/ML SYG IV PRN ×4 (00:58→14:16)
[2016-09-12] MEDS: traMADol 50 MG TAB PO SCH ×4 (00:58→17:58)
[2016-09-12] MEDS: VANCOMYCIN 1.25 GM in SOD CHLORIDE 0.9% 250 ML IVPB SCH ×4 (02:13→14:17)
[2016-09-12 05:37] LABS: HEMATOCRIT 30.2 % (37.0-47.0); HEMOGLOBIN 9.7 g/dl (12.0-16.0)
[2016-09-12 06:11] LABS: ADD UMIC NO; UR ASCORBIC ACID NEGATIVE (NEGATIVE); UR BILIRUBIN (Dip) NEGATIVE (NEGATIVE); UR BLOOD (Dip) NEGATIVE (NEGATIVE); UR CLARITY CLEAR (CLEAR); UR COLOR YELLOW (YELLOW); UR GLUCOSE (Dip) NEGATIVE (NEGATIVE); UR KETONES (Dip) TRACE mg/dL (NEGATIVE); UR LEUKOCYTE ESTERASE (Dip) NEGATIVE Leu/ul (NEGATIVE); UR NITRITE (Dip) NEGATIVE (NEGATIVE); UR SPECIFIC GRAVITY (Dip) 1.019 (1.003-1.030); UR TOTAL PROTEIN (Dip) NEGATIVE (NEGATIVE); UR UROBILINOGEN (Dip) NEGATIVE (NEGATIVE)
[2016-09-12 06:14] LABS: UR MUCUS FEW /HPF (NONE SEEN); UR RBC 2 /HPF (0-5)
[2016-09-12 06:15] LABS: CALCIUM 8.7 mg/dl (8.4-10.2); CREATININE 0.47 mg/dl (0.44-1.00); POTASSIUM 4.3 mmol/L (3.5-5.1)
[2016-09-12] MEDS: PANTOPRAZOLE (EC) 40 MG TAB PO SCH ×2 (06:17→17:58)
[2016-09-12] MEDS: LACTATED RINGER'S 1,000 ML IV SCH ×3 (06:19→22:20)
[2016-09-12 08:10] VITALS: BP 113/58; RESP 16
[2016-09-12] MEDS: ESCITALOPRAM 10 MG TAB PO SCH (09:00)
[2016-09-12] MEDS: RIFAMPIN 300 MG CAP PO SCH (09:34)
[2016-09-12] MEDS: DOCUSATE SODIUM 100 MG CAP PO SCH ×2 (09:34→20:17)
[2016-09-12] MEDS: ASPIRIN (EC) 325 MG TAB PO SCH ×2 (09:34→20:17)
[2016-09-12] MEDS: oxyCODONE 5 MG TAB PO PRN ×3 (10:49→20:17)
[2016-09-12] MEDS ORDERED: LIDOCAINE 1% (MPF) 5 ML VIAL SC ONE (13:00)
--- NOTE | 2016-09-12 13:09 | CONS ---
Date/Time of Note Date/Time of Note DATE: 09/12/16 TIME: 13:08 Assessment/Plan Assessment/Plan Chief Complaint/Hosp Course SUBJECTIVE: No events overnight. No fevers. Alert, just finished physical therapy, denies pain MICROBIOLOGY: Blood cultures negative. R hip drainage + MRSA on 08/13/2016, intraoperative cultures growing staph aureus preliminary ANTIMICROBIALS: The patient is on: 1. Vancomycin. 2. Rifampin PHYSICAL EXAMINATION: GENERAL: Fragile, elderly woman who is in no distress. HEENT: Head atraumatic, normocephalic. Sclerae anicteric. Buccal mucosa pink. NECK: Supple. CHEST: Rise symmetrical. Breath sounds clear. HEART: S1, S2. ABDOMEN: Soft, bowel tones present. EXTREMITIES: Without cyanosis, R hip swollen. ASSESSMENT: 1. Infected right hip arthroplasty, status post infected arthroplasty removal, postop day #2 2. Anemia PLAN: The patient remains stable, will order PICC line placement. Patient will require IV antibiotics for 6-8 weeks [facility] staff Problems: Consultation Date/Type/Reason Admit Date/Time Sep 06, 2016 at 15:47 Type of Consultation: Infectious disease Exam/Review of Systems Vital Signs Vitals Vital Signs Date Time Temp Pulse Resp B/P Pulse Ox O2 Delivery O2 Flow Rate FiO2 09/12/16 08:10 98.3 81 16 113/58 98 09/11/16 04:59 Nasal Cannula 09/11/16 04:05 2.0 Intake and Output 09/11/16 09/11/16 09/12/16 15:00 23:00 07:00 Intake Total 975 ml 2025 ml 1475 ml Output Total 990 ml 770 ml Balance 975 ml 1035 ml 705 ml Results Result Diagram: 09/12/16 0455 09/12/16 0455 Results 24 hrs Laboratory Tests Test 09/12/16 04:55 09/12/16 05:23 Hemoglobin 9.7 #L Hematocrit 30.2 #L Sodium Level 136 Potassium Level 4.3 Chloride Level 103 Carbon Dioxide Level 27 Anion Gap 10 Blood Urea Nitrogen 9 Creatinine 0.47 Glucose Level 113 Calcium Level 8.7 Lab Scanned Report BLOOD TRANSFUSION Medications Medications Current Medications Sodium Chloride (NS) 1,000 ml @ 40 mls/hr Q24H IV Last administered on t 05:58; Admin Dose 40 MLS/HR; Start 09/06/16 at 19:24 Ondansetron HCl (Zofran Inj) 4 mg Q6H PRN IV NAUSEA AND/OR VOMITING Last administered on 09/07/16 09:17; Admin Dose 4 MG; Start 09/06/16 at 19:30 Acetaminophen (Tylenol Tab) 650 mg Q6H PRN PO PAIN LEVEL 1-3 OR FEVER; Start at 19:30 Acetaminophen (Tylenol Supp) 650 mg Q6H PRN [place] PAIN LEVEL 1-3 OR FEVER; Start 09/06/16 at 19:30 Acetaminophen/ Hydrocodone Bitart ([place] (5/325)) 1 tab Q6H PRN PO MODERATE PAIN LEVEL 4-6 Last administered on 09/09/16 23:43; Admin Dose 1 TAB; Start at 19:30 Morphine Sulfate (morphine) 2 mg Q4H PRN IV SEVERE PAIN LEVEL 7-10 Last administered on 09/10/16 12:37; Admin Dose 2 MG; Start 09/06/16 at 19:30 Docusate Sodium (Colace) 100 mg Q12H PRN PO CONSTIPATION Last administered on 18:26; Admin Dose 100 MG; Start 09/06/16 at 19:30 Bisacodyl (Dulcolax) 5 mg DAILY PRN PO CONSTIPATION Last administered on 18:26; Admin Dose 5 MG; Start 09/06/16 at 19:30 Miscellaneous Information 1 ea NOTE XX ; Start 09/10/16 at 13:00; Stop 09/14/16 at 12:59 Rifampin (Rifampin) 600 mg DAILY PO Last administered on 09/12/16 09:34; Admin Dose 600 MG; Start 09/09/16 at 14:00 Escitalopram Oxalate (Lexapro) 5 mg DAILY PO ; Start 09/11/16 at 09:00 Ibuprofen 800 mg 800 mg Q6H PRN PO PAIN; Start 09/10/16 at 23:30 Lactated Ringer's (Lr) 1,000 ml @ 125 mls/hr Q8H IV Last administered on 14:20; Admin Dose 125 MLS/HR; Start 09/10/16 at 22:20 Tramadol HCl (Ultram) 50 mg Q6 PO Last administered on 09/12/16 06:17; Admin Dose 50 MG; Start 09/10/16 at 12:00; Stop 09/13/16 at 11:59 Oxycodone HCl (Roxicodone) 5 mg Q4H PRN PO PAIN LEVEL 1-3; Start 09/10/16 at 22 :30 Oxycodone HCl (Roxicodone) 10 mg Q4H PRN PO PAIN LEVEL 4-7 Last administered on 09/12/16 10:49; Admin Dose 10 MG; Start 09/10/16 at 22:30 Hydromorphone HCl (Dilaudid) 1 mg Q3H PRN IV PAIN LEVEL 8-10 Last administered on 09/12/16 09:35; Admin Dose 1 MG; Start 09/10/16 at 22:30 Bisacodyl (Dulcolax Supp) 10 mg Q12H PRN [place] CONSTIPATION; Start 09/10/16 at 22: 30 Magnesium Hydroxide (Milk Of Mag) 30 ml BID PRN PO CONSTIPATION; Start at 22:30 Sodium Biphosphate/ Sodium Phosphate (Fleet Enema) 133 ml DAILY PRN [place] CONSTIPATION; Start 09/10/16 at 22:30 Docusate Sodium (Colace) 100 mg BID PO Last administered on 09/12/16 09:34; Admin Dose 100 MG; Start 09/10/16 at 21:00 Diphenhydramine HCl (Benadryl) 25 mg Q6H PRN PO PRURITUS; Start 09/10/16 at 22: 30 Aspirin (Ecotrin) 325 mg BID PO Last administered on 09/12/16 09:34; Admin Dose 325 MG; Start 09/12/16 at 09:00; Stop 10/14/16 at 08:59 Pantoprazole 40 mg 40 mg BID@06,18 PO Last administered on 09/12/16 06:17; Admin Dose 40 MG; Start 09/11/16 at 06:00 Vancomycin HCl/ Sodium Chloride (Vancocin/NS) 250 ml @ 83.333 mls/ hr Q12H IVPB ; Start 09/12/16 at 14:00 SHARITA ROBERTS NP Sep 12, 2016 13:09
[2016-09-12] MEDS: SOD CHLORIDE 0.9% 1,000 ML IV SCH (19:24)
--- NOTE | 2016-09-12 20:01 | PN ---
Date/Time of Note Date/Time of Note DATE: 09/12/16 TIME: 19:58 Assessment/Plan Lines/Catheters IV Catheter Type (from Nrsg): Peripheral IV Hudson in Place (from Nrsg): Yes Assessment/Plan Assessment/Plan POD # 2. Stable. H/H improved. -Drains removed -VAC removed -Continue ABX as per ID -Pain meds -OOB with PT -TDWB right LE -Hip precautions -ASA/SCDs -ARU eval Subjective 24 Hr Interval Summary Resting comfortably. Sat at edge of bed today with PT. Exam/Review of Systems Vital Signs Vitals Vital Signs Date Time Temp Pulse Resp B/P Pulse Ox O2 Delivery O2 Flow Rate FiO2 09/12/16 08:10 98.3 81 16 113/58 98 09/11/16 04:59 Nasal Cannula 09/11/16 04:05 2.0 Intake and Output 09/11/16 09/11/16 09/12/16 15:00 23:00 07:00 Intake Total 975 ml 2025 ml 1475 ml Output Total 990 ml 770 ml Balance 975 ml 1035 ml 705 ml Exam Free Text/Dictation Hemovac: no output Dressing dry and VAC removed Incision clean, dry, and intact without redness or drainage Thigh soft 5/5 Quadriceps, Tibialis Anterior, EHL, Gastroc Soleus, Peroneals Normal sensation Palpable DP/PT, CR < 2 Sec No distal edema Cultures: S. aureus growing. ID pending. Results Result Diagram: 09/12/16 0455 09/12/16 0455 EDDIE HUDSON MD Sep 12, 2016 20:01
[2016-09-12 20:38] VITALS: BP 129/61; RESP 20
--- NOTE | 2016-09-12 21:29 | PN ---
Date/Time of Note Date/Time of Note DATE: 09/12/16 TIME: 21:28 Assessment/Plan VTE Prophylaxis VTE Prophylaxis Intervention: other Lines/Catheters IV Catheter Type (from Nrsg): Peripheral IV Urinary Cath still in place: Yes Reason Cath still needed: other (indicate) Assessment/Plan Chief Complaint/Hosp Course HIP CELLULITES HX HIP SURGERY s/p rt hip surgery post op anemia PLAN ANTIBIOTIC per surgery AND ID CK LABS Problems: Subjective 24 Hr Interval Summary Cardiovascular: no complaints Gastrointestinal: no complaints Musculoskeletal: bone/joint pain (+) Exam/Review of Systems Vital Signs Vitals Vital Signs Date Time Temp Pulse Resp B/P Pulse Ox O2 Delivery O2 Flow Rate FiO2 09/12/16 20:38 99.6 99 20 129/61 97 09/11/16 04:59 Nasal Cannula 09/11/16 04:05 2.0 Intake and Output 09/11/16 09/11/16 09/12/16 15:00 23:00 07:00 Intake Total 975 ml 2025 ml 1475 ml Output Total 990 ml 770 ml Balance 975 ml 1035 ml 705 ml Exam Respiratory: clear to auscultation Cardiovascular: regular rate and rhythm Gastrointestinal: bowel sounds, soft Musculoskeletal: range of motion (PAIN+) Results Result Diagram: 09/12/16 0455 09/12/16 0455 Results 24 hrs Laboratory Tests Test 09/12/16 04:55 09/12/16 05:23 Hemoglobin 9.7 #L Hematocrit 30.2 #L Sodium Level 136 Potassium Level 4.3 Chloride Level 103 Carbon Dioxide Level 27 Anion Gap 10 Blood Urea Nitrogen 9 Creatinine 0.47 Glucose Level 113 Calcium Level 8.7 Lab Scanned Report BLOOD TRANSFUSION Medications Medications Current Medications Sodium Chloride (NS) 1,000 ml @ 40 mls/hr Q24H IV Last administered on 05:58; Admin Dose 40 MLS/HR; Start 09/06/16 at 19:24 Ondansetron HCl (Zofran Inj) 4 mg Q6H PRN IV NAUSEA AND/OR VOMITING Last administered on 09/07/16 09:17; Admin Dose 4 MG; Start 09/06/16 at 19:30 Acetaminophen (Tylenol Tab) 650 mg Q6H PRN PO PAIN LEVEL 1-3 OR FEVER; Start at 19:30 Acetaminophen (Tylenol Supp) 650 mg Q6H PRN [place] PAIN LEVEL 1-3 OR FEVER; Start 09/06/16 at 19:30 Acetaminophen/ Hydrocodone Bitart ([place] (5/325)) 1 tab Q6H PRN PO MODERATE PAIN LEVEL 4-6 Last administered on 09/09/16 23:43; Admin Dose 1 TAB; Start at 19:30 Morphine Sulfate (morphine) 2 mg Q4H PRN IV SEVERE PAIN LEVEL 7-10 Last administered on 09/10/16 12:37; Admin Dose 2 MG; Start 09/06/16 at 19:30 Docusate Sodium (Colace) 100 mg Q12H PRN PO CONSTIPATION Last administered on 18:26; Admin Dose 100 MG; Start 09/06/16 at 19:30 Bisacodyl (Dulcolax) 5 mg DAILY PRN PO CONSTIPATION Last administered on 18:26; Admin Dose 5 MG; Start 09/06/16 at 19:30 Miscellaneous Information 1 ea NOTE XX ; Start 09/10/16 at 13:00; Stop 09/14/16 at 12:59 Rifampin (Rifampin) 600 mg DAILY PO Last administered on 09/12/16 09:34; Admin Dose 600 MG; Start 09/09/16 at 14:00 Escitalopram Oxalate (Lexapro) 5 mg DAILY PO ; Start 09/11/16 at 09:00 Ibuprofen 800 mg 800 mg Q6H PRN PO PAIN; Start 09/10/16 at 23:30 Lactated Ringer's (Lr) 1,000 ml @ 125 mls/hr Q8H IV Last administered on 14:20; Admin Dose 125 MLS/HR; Start 09/10/16 at 22:20 Tramadol HCl (Ultram) 50 mg Q6 PO Last administered on 09/12/16 06:17; Admin Dose 50 MG; Start 09/10/16 at 12:00; Stop 09/13/16 at 11:59 Oxycodone HCl (Roxicodone) 5 mg Q4H PRN PO PAIN LEVEL 1-3; Start 09/10/16 at 22 :30 Oxycodone HCl (Roxicodone) 10 mg Q4H PRN PO PAIN LEVEL 4-7 Last administered on 09/12/16 20:17; Admin Dose 10 MG; Start 09/10/16 at 22:30 Hydromorphone HCl (Dilaudid) 1 mg Q3H PRN IV PAIN LEVEL 8-10 Last administered on 09/12/16 14:16; Admin Dose 1 MG; Start 09/10/16 at 22:30 Bisacodyl (Dulcolax Supp) 10 mg Q12H PRN [place] CONSTIPATION; Start 09/10/16 at 22: 30 Magnesium Hydroxide (Milk Of Mag) 30 ml BID PRN PO CONSTIPATION; Start at 22:30 Sodium Biphosphate/ Sodium Phosphate (Fleet Enema) 133 ml DAILY PRN [place] CONSTIPATION; Start 09/10/16 at 22:30 Docusate Sodium (Colace) 100 mg BID PO Last administered on 09/12/16 20:17; Admin Dose 100 MG; Start 09/10/16 at 21:00 Diphenhydramine HCl (Benadryl) 25 mg Q6H PRN PO PRURITUS; Start 09/10/16 at 22: 30 Aspirin (Ecotrin) 325 mg BID PO Last administered on 09/12/16 20:17; Admin Dose 325 MG; Start 09/12/16 at 09:00; Stop 10/14/16 at 08:59 Pantoprazole 40 mg 40 mg BID@06,18 PO Last administered on 09/12/16 17:58; Admin Dose 40 MG; Start 09/11/16 at 06:00 Vancomycin HCl/ Sodium Chloride (Vancocin/NS) 250 ml @ 83.333 mls/ hr Q12H IVPB Last administered on 09/12/16 14:17; Admin Dose 83.333 MLS/HR; Start at 14:00 TONY CADET MD Sep 12, 2016 21:29
[2016-09-13] MEDS: oxyCODONE 5 MG TAB PO PRN ×3 (00:57→16:32)
[2016-09-13] MEDS: VANCOMYCIN 1.25 GM in SOD CHLORIDE 0.9% 250 ML IVPB SCH ×2 (02:00→13:56)
[2016-09-13 05:21] LABS: HEMATOCRIT 28.7 % (37.0-47.0); HEMOGLOBIN 9.7 g/dl (12.0-16.0)
[2016-09-13] MEDS: PANTOPRAZOLE (EC) 40 MG TAB PO SCH ×2 (05:31→17:23)
[2016-09-13] MEDS: traMADol 50 MG TAB PO SCH ×2 (05:33)
[2016-09-13 05:46] LABS: CALCIUM 8.9 mg/dl (8.4-10.2); CREATININE 0.47 mg/dl (0.44-1.00); POTASSIUM 3.2 mmol/L (3.5-5.1)
[2016-09-13] MEDS: LACTATED RINGER'S 1,000 ML IV SCH ×3 (06:20→21:04)
[2016-09-13] MEDS: HYDROmorphONE 1 MG/ML SYG IV PRN ×4 (08:17→23:03)
[2016-09-13 08:25] VITALS: BP 129/60; RESP 20
--- NOTE | 2016-09-13 08:32 | PN ---
Date/Time of Note Date/Time of Note DATE: 09/13/16 TIME: 08:30 Assessment/Plan Lines/Catheters IV Catheter Type (from Nrsg): Peripheral IV Hudson in Place (from Nrsg): Yes Assessment/Plan Assessment/Plan POD # 3. Stable. -Vanco x 6-8 weeks as per ID -PICC Line -OOB with PT -Pain meds -TDWB right LE -Hip precautions -OK to d/c to ARU today if accepted and PICC line placed -If not accepted to ARU, plan for d/c to SNF -Continue ASA/SCDs -F/u with me in 10 days in office Subjective 24 Hr Interval Summary Resting comfortably. Minimal pain. Exam/Review of Systems Vital Signs Vitals Vital Signs Date Time Temp Pulse Resp B/P Pulse Ox O2 Delivery O2 Flow Rate FiO2 09/13/16 08:25 99.9 97 20 129/60 96 09/11/16 04:59 Nasal Cannula 09/11/16 04:05 2.0 Intake and Output 09/12/16 09/12/16 09/13/16 15:00 23:00 07:00 Intake Total 375 ml 1570 ml 250 ml Output Total 1800 ml 1300 ml Balance 375 ml -230 ml -1050 ml Exam Free Text/Dictation Dressing dry Thigh soft 5/5 Quadriceps, Tibialis Anterior, EHL, Gastroc Soleus, Peroneals Normal sensation Palpable DP/PT, CR < 2 Sec No distal edema Cultures: Scan S. aureus (Sens pending) Results Result Diagram: 09/13/16 0423 09/13/16 0423 EDDIE HUDSON MD Sep 13, 2016 08:32
[2016-09-13] MEDS: ESCITALOPRAM 10 MG TAB PO SCH (09:00)
[2016-09-13] MEDS: RIFAMPIN 300 MG CAP PO SCH (10:10)
[2016-09-13] MEDS: ASPIRIN (EC) 325 MG TAB PO SCH ×2 (10:12→20:45)
[2016-09-13] MEDS: DOCUSATE SODIUM 100 MG CAP PO SCH ×2 (10:12→20:45)
[2016-09-13] MEDS ORDERED: POTASSIUM CHLORIDE (SR) 20 MEQ TAB PO STA (10:32)
--- NOTE | 2016-09-13 10:35 | RADRPT ---
PROCEDURE: US guidance for PICC line CLINICAL INDICATION: PICC line placement TECHNIQUE: Multiple real-time images were acquired of the patient's arm utilizing a high resolutio n transducer. This was performed by the PICC line nurse for venous access. COMPARISON: None FINDINGS: Ultrasound guidance for PICC line placement. There is a patent and compressible right upper extremit y vein. IMPRESSION: Ultrasound guidance for PICC line placement. Patent and compressible right upper extremity vein. RPTAT: AA Physician Isabel Date Time Electronically viewed and signed by Harrison Willingham Physician on 09/13/2016 10:34 RA/
--- NOTE | 2016-09-13 10:39 | RADRPT ---
PROCEDURE: XR Chest. CLINICAL INDICATION: Check Line Placement TECHNIQUE: Single frontal view of the chest was obtained. COMPARISON: Chest x-ray from 09/06/2016 FINDINGS: There has been interval placement of a right-sided PICC line with its tip in the mid SVC. The heart and mediastinum are within normal limits. The lungs are clear. There is no significant pleural effusion or pneumothorax. IMPRESSION: Interval placement of a right-sided PICC line with its tip in the mid SVC. RPTAT: EE Physician Isabel Date Time Electronically viewed and signed by Physician Isabel on 09/13/2016 10:33 RA/
--- NOTE | 2016-09-13 15:15 | PN ---
Date/Time of Note Date/Time of Note DATE: 09/13/16 TIME: 15:14 Assessment/Plan VTE Prophylaxis VTE Prophylaxis Intervention: ambulation Lines/Catheters IV Catheter Type (from Nrsg): PICC Line Central line still needed: Yes Urinary Cath still in place: Yes Reason Cath still needed: urinary retention Assessment/Plan Chief Complaint/Hosp Course 1. Right hip pain. 2. Possible right hip cellulitis, rule out abscess. Problems: Assessment/Plan 1. Discharge with rehabilitation 2. D/c lexapro Subjective 24 Hr Interval Summary Constitutional: improved, no complaints Exam/Review of Systems Vital Signs Vitals Vital Signs Date Time Temp Pulse Resp B/P Pulse Ox O2 Delivery O2 Flow Rate FiO2 09/13/16 08:25 99.9 97 20 129/60 96 09/11/16 04:59 Nasal Cannula 09/11/16 04:05 2.0 Intake and Output 09/12/16 09/12/16 09/13/16 15:00 23:00 07:00 Intake Total 375 ml 1570 ml 250 ml Output Total 1800 ml 1300 ml Balance 375 ml -230 ml -1050 ml Exam Constitutional: alert, oriented Respiratory: clear to auscultation Cardiovascular: regular rate and rhythm Results Result Diagram: 09/13/16 0423 09/13/16 0423 Results 24 hrs Laboratory Tests Test 09/13/16 04:23 Hemoglobin 9.7 L Hematocrit 28.7 L Sodium Level 138 Potassium Level 3.2 L Chloride Level 101 Carbon Dioxide Level 30 Anion Gap 10 Blood Urea Nitrogen 7 Creatinine 0.47 Glucose Level 100 Calcium Level 8.9 Medications Medications Current Medications Sodium Chloride (NS) 1,000 ml @ 40 mls/hr Q24H IV Last administered on 05:58; Admin Dose 40 MLS/HR; Start 09/06/16 at 19:24 Ondansetron HCl (Zofran Inj) 4 mg Q6H PRN IV NAUSEA AND/OR VOMITING Last administered on 09/07/16 09:17; Admin Dose 4 MG; Start 09/06/16 at 19:30 Acetaminophen (Tylenol Tab) 650 mg Q6H PRN PO PAIN LEVEL 1-3 OR FEVER; Start at 19:30 Acetaminophen (Tylenol Supp) 650 mg Q6H PRN [place] PAIN LEVEL 1-3 OR FEVER; Start 09/06/16 at 19:30 Acetaminophen/ Hydrocodone Bitart ([place] (5/325)) 1 tab Q6H PRN PO MODERATE PAIN LEVEL 4-6 Last administered on 09/09/16 23:43; Admin Dose 1 TAB; Start at 19:30 Morphine Sulfate (morphine) 2 mg Q4H PRN IV SEVERE PAIN LEVEL 7-10 Last administered on 09/10/16 12:37; Admin Dose 2 MG; Start 09/06/16 at 19:30 Docusate Sodium (Colace) 100 mg Q12H PRN PO CONSTIPATION Last administered on 18:26; Admin Dose 100 MG; Start 09/06/16 at 19:30 Bisacodyl (Dulcolax) 5 mg DAILY PRN PO CONSTIPATION Last administered on 18:26; Admin Dose 5 MG; Start 09/06/16 at 19:30 Miscellaneous Information 1 ea NOTE XX ; Start 09/10/16 at 13:00; Stop 09/14/16 at 12:59 Rifampin (Rifampin) 600 mg DAILY PO Last administered on 09/13/16 10:10; Admin Dose 600 MG; Start 09/09/16 at 14:00 Escitalopram Oxalate (Lexapro) 5 mg DAILY PO ; Start 09/11/16 at 09:00 Ibuprofen 800 mg 800 mg Q6H PRN PO PAIN; Start 09/10/16 at 23:30 Lactated Ringer's (Lr) 1,000 ml @ 125 mls/hr Q8H IV Last administered on 14:20; Admin Dose 125 MLS/HR; Start 09/10/16 at 22:20 Oxycodone HCl (Roxicodone) 5 mg Q4H PRN PO PAIN LEVEL 1-3; Start 09/10/16 at 22 :30 Oxycodone HCl (Roxicodone) 10 mg Q4H PRN PO PAIN LEVEL 4-7 Last administered on 09/13/16 10:19; Admin Dose 10 MG; Start 09/10/16 at 22:30 Hydromorphone HCl (Dilaudid) 1 mg Q3H PRN IV PAIN LEVEL 8-10 Last administered on 09/13/16 12:48; Admin Dose 1 MG; Start 09/10/16 at 22:30 Bisacodyl (Dulcolax Supp) 10 mg Q12H PRN [place] CONSTIPATION; Start 09/10/16 at 22: 30 Magnesium Hydroxide (Milk Of Mag) 30 ml BID PRN PO CONSTIPATION; Start at 22:30 Sodium Biphosphate/ Sodium Phosphate (Fleet Enema) 133 ml DAILY PRN [place] CONSTIPATION; Start 09/10/16 at 22:30 Docusate Sodium (Colace) 100 mg BID PO Last administered on 09/13/16 10:12; Admin Dose 100 MG; Start 09/10/16 at 21:00 Diphenhydramine HCl (Benadryl) 25 mg Q6H PRN PO PRURITUS; Start 09/10/16 at 22: 30 Aspirin (Ecotrin) 325 mg BID PO Last administered on 09/13/16 10:12; Admin Dose 325 MG; Start 09/12/16 at 09:00; Stop 10/14/16 at 08:59 Pantoprazole 40 mg 40 mg BID@06,18 PO Last administered on 09/13/16 05:31; Admin Dose 40 MG; Start 09/11/16 at 06:00 Vancomycin HCl/ Sodium Chloride (Vancocin/NS) 250 ml @ 83.333 mls/ hr Q12H IVPB Last administered on 09/13/16 13:56; Admin Dose 83.333 MLS/HR; Start at 14:00 IV Flush (NS 10 ml) 10 ml PRN PRN IV IV PROTOCOL; Start 09/13/16 at 10:00 Miscellaneous Information (*Rx Drug Level Order Reminder*) 1 ONCE ONCE XX ; Start 09/14/16 at 01:00; Stop 09/14/16 at 01:01 MICH ACOSTA Sep 13, 2016 15:15
--- NOTE | 2016-09-13 15:20 | CONS ---
Date/Time of Note Date/Time of Note DATE: 09/13/16 TIME: 15:18 Assessment/Plan Assessment/Plan Chief Complaint/Hosp Course SUBJECTIVE: No events overnight. No fevers. Alert, looks comfortable MICROBIOLOGY: Blood cultures negative. R hip drainage + MRSA on 08/13/2016, intraoperative cultures growing staph aureus preliminary, negative anaerobes ANTIMICROBIALS: The patient is on: 1. Vancomycin. 2. Rifampin PHYSICAL EXAMINATION: GENERAL: Fragile, elderly woman who is in no distress. HEENT: Head atraumatic, normocephalic. Sclerae anicteric. Buccal mucosa pink. NECK: Supple. CHEST: Rise symmetrical. Breath sounds clear. HEART: S1, S2. ABDOMEN: Soft, bowel tones present. EXTREMITIES: Without cyanosis, R hip swollen. ASSESSMENT: 1. Infected right hip arthroplasty, status post infected arthroplasty removal on 09/10/2016 2. Anemia PLAN: The patient remains stable, status post PICC line placement. Continue present care. Patient will require IV antibiotics for 6-8 weeks DW staff Problems: Consultation Date/Type/Reason Admit Date/Time Sep 06, 2016 at 15:47 Type of Consultation: Infectious disease Exam/Review of Systems Vital Signs Vitals Vital Signs Date Time Temp Pulse Resp B/P Pulse Ox O2 Delivery O2 Flow Rate FiO2 09/13/16 08:25 99.9 97 20 129/60 96 09/11/16 04:59 Nasal Cannula 09/11/16 04:05 2.0 Intake and Output 09/12/16 09/12/16 09/13/16 15:00 23:00 07:00 Intake Total 375 ml 1570 ml 250 ml Output Total 1800 ml 1300 ml Balance 375 ml -230 ml -1050 ml Results Result Diagram: 09/13/16 0423 09/13/16 0423 Results 24 hrs Laboratory Tests Test 09/13/16 04:23 Hemoglobin 9.7 L Hematocrit 28.7 L Sodium Level 138 Potassium Level 3.2 L Chloride Level 101 Carbon Dioxide Level 30 Anion Gap 10 Blood Urea Nitrogen 7 Creatinine 0.47 Glucose Level 100 Calcium Level 8.9 Medications Medications Current Medications Sodium Chloride (NS) 1,000 ml @ 40 mls/hr Q24H IV Last administered on t 05:58; Admin Dose 40 MLS/HR; Start 09/06/16 at 19:24 Ondansetron HCl (Zofran Inj) 4 mg Q6H PRN IV NAUSEA AND/OR VOMITING Last administered on 09/07/16 09:17; Admin Dose 4 MG; Start 09/06/16 at 19:30 Acetaminophen (Tylenol Tab) 650 mg Q6H PRN PO PAIN LEVEL 1-3 OR FEVER; Start at 19:30 Acetaminophen (Tylenol Supp) 650 mg Q6H PRN [place] PAIN LEVEL 1-3 OR FEVER; Start 09/06/16 at 19:30 Acetaminophen/ Hydrocodone Bitart ([place] (5/325)) 1 tab Q6H PRN PO MODERATE PAIN LEVEL 4-6 Last administered on 09/09/16 23:43; Admin Dose 1 TAB; Start at 19:30 Morphine Sulfate (morphine) 2 mg Q4H PRN IV SEVERE PAIN LEVEL 7-10 Last administered on 09/10/16 12:37; Admin Dose 2 MG; Start 09/06/16 at 19:30 Docusate Sodium (Colace) 100 mg Q12H PRN PO CONSTIPATION Last administered on 18:26; Admin Dose 100 MG; Start 09/06/16 at 19:30 Bisacodyl (Dulcolax) 5 mg DAILY PRN PO CONSTIPATION Last administered on 18:26; Admin Dose 5 MG; Start 09/06/16 at 19:30 Miscellaneous Information 1 ea NOTE XX ; Start 09/10/16 at 13:00; Stop 09/14/16 at 12:59 Rifampin (Rifampin) 600 mg DAILY PO Last administered on 09/13/16 10:10; Admin Dose 600 MG; Start 09/09/16 at 14:00 Ibuprofen 800 mg 800 mg Q6H PRN PO PAIN; Start 09/10/16 at 23:30 Lactated Ringer's (Lr) 1,000 ml @ 125 mls/hr Q8H IV Last administered on 14:20; Admin Dose 125 MLS/HR; Start 09/10/16 at 22:20 Oxycodone HCl (Roxicodone) 5 mg Q4H PRN PO PAIN LEVEL 1-3; Start 09/10/16 at 22 :30 Oxycodone HCl (Roxicodone) 10 mg Q4H PRN PO PAIN LEVEL 4-7 Last administered on 09/13/16 10:19; Admin Dose 10 MG; Start 09/10/16 at 22:30 Hydromorphone HCl (Dilaudid) 1 mg Q3H PRN IV PAIN LEVEL 8-10 Last administered on 09/13/16 12:48; Admin Dose 1 MG; Start 09/10/16 at 22:30 Bisacodyl (Dulcolax Supp) 10 mg Q12H PRN [place] CONSTIPATION; Start 09/10/16 at 22: 30 Magnesium Hydroxide (Milk Of Mag) 30 ml BID PRN PO CONSTIPATION; Start at 22:30 Sodium Biphosphate/ Sodium Phosphate (Fleet Enema) 133 ml DAILY PRN [place] CONSTIPATION; Start 09/10/16 at 22:30 Docusate Sodium (Colace) 100 mg BID PO Last administered on 09/13/16 10:12; Admin Dose 100 MG; Start 09/10/16 at 21:00 Diphenhydramine HCl (Benadryl) 25 mg Q6H PRN PO PRURITUS; Start 09/10/16 at 22: 30 Aspirin (Ecotrin) 325 mg BID PO Last administered on 09/13/16 10:12; Admin Dose 325 MG; Start 09/12/16 at 09:00; Stop 10/14/16 at 08:59 Pantoprazole 40 mg 40 mg BID@06,18 PO Last administered on 09/13/16 05:31; Admin Dose 40 MG; Start 09/11/16 at 06:00 Vancomycin HCl/ Sodium Chloride (Vancocin/NS) 250 ml @ 83.333 mls/ hr Q12H IVPB Last administered on 09/13/16 13:56; Admin Dose 83.333 MLS/HR; Start at 14:00 IV Flush (NS 10 ml) 10 ml PRN PRN IV IV PROTOCOL; Start 09/13/16 at 10:00 Miscellaneous Information (*Rx Drug Level Order Reminder*) 1 ONCE ONCE XX ; Start 09/14/16 at 01:00; Stop 09/14/16 at 01:01 SHARITA ROBERTS NP Sep 13, 2016 15:20
[2016-09-13 16:00] VITALS: BP 115/83; PULSE 92; RESP 16
[2016-09-13] MEDS ORDERED: Vancomycin Iv Per Pharmacy XX (16:24)
[2016-09-13] MEDS ORDERED: OXYC-481 PO (16:24)
[2016-09-13] MEDS ORDERED: ASPI325T32 PO (16:24)
[2016-09-13] MEDS ORDERED: RIF120L PO (16:24)
[2016-09-13] MEDS ORDERED: PANT40TA4 PO (16:24)
[2016-09-13] MEDS: SOD CHLORIDE 0.9% 1,000 ML IV SCH (19:24)
[2016-09-13 21:30] VITALS: BP 114/54; RESP 20
[2016-09-14] MEDS: VANCOMYCIN 1.25 GM in SOD CHLORIDE 0.9% 250 ML IVPB SCH ×3 (02:51→18:12)
[2016-09-14] MEDS: HYDROmorphONE 1 MG/ML SYG IV PRN ×6 (04:21→23:06)
[2016-09-14 05:46] LABS: HEMATOCRIT 28.2 % (37.0-47.0); HEMOGLOBIN 8.9 g/dl (12.0-16.0)
[2016-09-14] MEDS: PANTOPRAZOLE (EC) 40 MG TAB PO SCH ×2 (06:01→18:12)
[2016-09-14 06:06] LABS: CALCIUM 8.5 mg/dl (8.4-10.2); CREATININE 0.46 mg/dl (0.44-1.00); POTASSIUM 3.4 mmol/L (3.5-5.1)
[2016-09-14] MEDS: LACTATED RINGER'S 1,000 ML IV SCH ×2 (06:19→14:20)
[2016-09-14 08:00] VITALS: BP 114/58; RESP 18
[2016-09-14] MEDS: ASPIRIN (EC) 325 MG TAB PO SCH ×2 (09:10→20:13)
--- NOTE | 2016-09-14 09:10 | PN ---
Date/Time of Note Date/Time of Note DATE: 09/14/16 TIME: 09:07 Assessment/Plan VTE Prophylaxis VTE Prophylaxis Intervention: ambulation, SCD's, other (Aspirin 325 mg twice daily) Lines/Catheters IV Catheter Type (from Nrsg): PICC Line [place] in Place (from Nrsg): Yes Assessment/Plan Assessment/Plan -Pain Meds as needed -Dress change performed today -OOB with PT -ASA/SCDs for DVT Prophylaxis -Continue monitoring with Internal Medicine -Patient Stable -Continue to await transfer authorization to long-term facility. Subjective 24 Hr Interval Summary 60-year-old female postop day 3 status post placement of antibiotic spacer to the right hip due to infected hip caused by MRSA. Patient continues to do well. Pain is controlled with. Weightbearing as tolerated and up and out of bed with physical therapy. Has blister to the midline anterior right thigh. Denies any shortness of breath, chest pain/tightness or calf pain. Denies any pain to the hip at this time. Exam/Review of Systems Vital Signs Vitals Vital Signs Date Time Temp Pulse Resp B/P Pulse Ox O2 Delivery O2 Flow Rate FiO2 09/14/16 08:00 98.3 86 18 114/58 96 09/13/16 18:45 21 09/11/16 04:59 Nasal Cannula 09/11/16 04:05 2.0 Intake and Output 09/13/16 09/13/16 09/14/16 15:00 23:00 07:00 Intake Total 250 ml 730 ml Output Total 800 ml 800 ml Balance -550 ml -70 ml Exam Free Text/Dictation -Incision: Clean, Dry and Intact without any redness or drainage -Thigh soft -5/5 Quadriceps, Tibialis Anterior, EHL Gastrocnemius/Soleus and Peroneals -Normal Sensation -Palpable DP/PT, Capillary Refill <2 secs -No Distal Edema -Blister to the midline anterior thigh. No signs of infection. -Negative Phillip Sign/No calf pain -Toes Freely Movable Constitutional: alert, oriented, well developed Results Result Diagram: 09/14/16 0504 09/14/16 0504 LYNNETTE PANDYA PA-C Sep 14, 2016 09:10
[2016-09-14] MEDS: DOCUSATE SODIUM 100 MG CAP PO SCH ×2 (09:11→20:13)
[2016-09-14] MEDS: RIFAMPIN 300 MG CAP PO SCH (09:11)
[2016-09-14] MEDS: oxyCODONE 5 MG TAB PO PRN ×2 (09:19→13:13)
--- NOTE | 2016-09-14 13:50 | CONS ---
Date/Time of Note Date/Time of Note DATE: 09/14/16 TIME: 13:47 Assessment/Plan Assessment/Plan Chief Complaint/Hosp Course ID PROGRESS NOTE * SUBJECTIVE: Napping, awakens, no new issues, no c/p, DC planning in process * MICROBIOLOGY: Blood cultures negative. R hip drainage + MRSA on 08/13/2016, intraoperative cultures growing staph aureus preliminary, negative anaerobes * ANTIMICROBIALS: 1. Vancomycin. 2. Rifampin PHYSICAL EXAMINATION: GENERAL: Fragile, elderly woman who is in no distress. HEENT: Head atraumatic, normocephalic. Sclerae anicteric. Buccal mucosa pink. NECK: Supple. CHEST: Rise symmetrical. Breath sounds clear. HEART: S1, S2. ABDOMEN: Soft, bowel tones present. EXTREMITIES: Without cyanosis, R hip swollen. ID Assessment/Plan ID Assessment/Plan ID ASSESSMENT/PLAN 1. Infected right hip arthroplasty, status post infected arthroplasty removal on 09/10/2016 2. Anemia 3. PICC Line placed this admission PLAN: The patient may DC on current ABX when cleared by primary. * Patient will require IV antibiotics for 6-8 weeks . Problems: Consultation Date/Type/Reason Admit Date/Time Sep 06, 2016 at 15:47 Initial Consult Date Type of Consultation: Infectious disease Exam/Review of Systems Vital Signs Vitals Vital Signs Date Time Temp Pulse Resp B/P Pulse Ox O2 Delivery O2 Flow Rate FiO2 09/14/16 08:00 98.3 86 18 114/58 96 09/13/16 18:45 21 09/11/16 04:59 Nasal Cannula 09/11/16 04:05 2.0 Intake and Output 09/13/16 09/13/16 09/14/16 15:00 23:00 07:00 Intake Total 250 ml 730 ml Output Total 800 ml 800 ml Balance -550 ml -70 ml Results Result Diagram: 09/14/16 0504 09/14/16 0504 Results 24 hrs Laboratory Tests Test 09/14/16 00:50 09/14/16 05:04 Vancomycin Level Trough 6.6 L Hemoglobin 8.9 L Hematocrit 28.2 L Sodium Level 138 Potassium Level 3.4 L Chloride Level 102 Carbon Dioxide Level 31 Anion Gap 8 Blood Urea Nitrogen 9 Creatinine 0.46 Glucose Level 104 Calcium Level 8.5 Medications Medications Current Medications Sodium Chloride (NS) 1,000 ml @ 40 mls/hr Q24H IV Last administered on 05:58; Admin Dose 40 MLS/HR; Start 09/06/16 at 19:24 Ondansetron HCl (Zofran Inj) 4 mg Q6H PRN IV NAUSEA AND/OR VOMITING Last administered on 09/07/16 09:17; Admin Dose 4 MG; Start 09/06/16 at 19:30 Acetaminophen (Tylenol Tab) 650 mg Q6H PRN PO PAIN LEVEL 1-3 OR FEVER Last administered on 09/13/16 23:02; Admin Dose 650 MG; Start 09/06/16 at 19:30 Acetaminophen (Tylenol Supp) 650 mg Q6H PRN [place] PAIN LEVEL 1-3 OR FEVER; Start 09/06/16 at 19:30 Acetaminophen/ Hydrocodone Bitart ([place] (5/325)) 1 tab Q6H PRN PO MODERATE PAIN LEVEL 4-6 Last administered on 09/09/16 23:43; Admin Dose 1 TAB; Start at 19:30 Morphine Sulfate (morphine) 2 mg Q4H PRN IV SEVERE PAIN LEVEL 7-10 Last administered on 09/10/16 12:37; Admin Dose 2 MG; Start 09/06/16 at 19:30 Docusate Sodium (Colace) 100 mg Q12H PRN PO CONSTIPATION Last administered on 18:26; Admin Dose 100 MG; Start 09/06/16 at 19:30 Bisacodyl (Dulcolax) 5 mg DAILY PRN PO CONSTIPATION Last administered on 18:26; Admin Dose 5 MG; Start 09/06/16 at 19:30 Rifampin (Rifampin) 600 mg DAILY PO Last administered on 09/14/16 09:11; Admin Dose 600 MG; Start 09/09/16 at 14:00 Ibuprofen 800 mg 800 mg Q6H PRN PO PAIN; Start 09/10/16 at 23:30 Lactated Ringer's (Lr) 1,000 ml @ 125 mls/hr Q8H IV Last administered on 14:20; Admin Dose 125 MLS/HR; Start 09/10/16 at 22:20 Oxycodone HCl (Roxicodone) 5 mg Q4H PRN PO PAIN LEVEL 1-3 Last administered on 09/14/16 09:19; Admin Dose 5 MG; Start 09/10/16 at 22:30 Oxycodone HCl (Roxicodone) 10 mg Q4H PRN PO PAIN LEVEL 4-7 Last administered on 09/14/16 13:13; Admin Dose 10 MG; Start 09/10/16 at 22:30 Hydromorphone HCl (Dilaudid) 1 mg Q3H PRN IV PAIN LEVEL 8-10 Last administered on 09/14/16 11:12; Admin Dose 1 MG; Start 09/10/16 at 22:30 Bisacodyl (Dulcolax Supp) 10 mg Q12H PRN [place] CONSTIPATION; Start 09/10/16 at 22: 30 Magnesium Hydroxide (Milk Of Mag) 30 ml BID PRN PO CONSTIPATION; Start at 22:30 Sodium Biphosphate/ Sodium Phosphate (Fleet Enema) 133 ml DAILY PRN [place] CONSTIPATION; Start 09/10/16 at 22:30 Docusate Sodium (Colace) 100 mg BID PO Last administered on 09/14/16 09:11; Admin Dose 100 MG; Start 09/10/16 at 21:00 Diphenhydramine HCl (Benadryl) 25 mg Q6H PRN PO PRURITUS; Start 09/10/16 at 22: 30 Aspirin (Ecotrin) 325 mg BID PO Last administered on 09/14/16 09:10; Admin Dose 325 MG; Start 09/12/16 at 09:00; Stop 10/14/16 at 08:59 Pantoprazole (Protonix Tab) 40 mg BID@06,18 PO Last administered on 09/14/16 06 :01; Admin Dose 40 MG; Start 09/11/16 at 06:00 IV Flush 10 ml 10 ml PRN PRN IV IV PROTOCOL; Start 09/13/16 at 10:00 Vancomycin HCl/ Sodium Chloride (Vancocin/NS) 250 ml @ 83.333 mls/ hr Q8H IVPB Last administered on 09/14/16 10:16; Admin Dose 83.333 MLS/HR; Start 09/14/16 at 10:00 KHANG CABRALES NP Sep 14, 2016 13:50
--- NOTE | 2016-09-14 15:06 | PN ---
Date/Time of Note Date/Time of Note DATE: 09/14/16 TIME: 15:04 Assessment/Plan VTE Prophylaxis VTE Prophylaxis Intervention: ambulation Lines/Catheters IV Catheter Type (from Nrsg): PICC Line Central line still needed: Yes Urinary Cath still in place: Yes Reason Cath still needed: urinary retention Assessment/Plan Chief Complaint/Hosp Course 1. Right hip pain. 2.right hip cellulitis, rule out abscess. Problems: Assessment/Plan 1. Continue a/b for 6 weeks per ID 2. D/c planning to SNF Subjective 24 Hr Interval Summary Constitutional: improved, no complaints Exam/Review of Systems Vital Signs Vitals Vital Signs Date Time Temp Pulse Resp B/P Pulse Ox O2 Delivery O2 Flow Rate FiO2 09/14/16 08:00 98.3 86 18 114/58 96 09/13/16 18:45 21 09/11/16 04:59 Nasal Cannula 09/11/16 04:05 2.0 Intake and Output 09/13/16 09/13/16 09/14/16 15:00 23:00 07:00 Intake Total 250 ml 730 ml Output Total 800 ml 800 ml Balance -550 ml -70 ml Exam Constitutional: alert, oriented Respiratory: clear to auscultation Cardiovascular: regular rate and rhythm Musculoskeletal: muscle weakness (right leg) Results Result Diagram: 09/14/16 0504 09/14/16 0504 Results 24 hrs Laboratory Tests Test 09/14/16 00:50 09/14/16 05:04 Vancomycin Level Trough 6.6 L Hemoglobin 8.9 L Hematocrit 28.2 L Sodium Level 138 Potassium Level 3.4 L Chloride Level 102 Carbon Dioxide Level 31 Anion Gap 8 Blood Urea Nitrogen 9 Creatinine 0.46 Glucose Level 104 Calcium Level 8.5 Medications Medications Current Medications Sodium Chloride (NS) 1,000 ml @ 40 mls/hr Q24H IV Last administered on 05:58; Admin Dose 40 MLS/HR; Start 09/06/16 at 19:24 Ondansetron HCl (Zofran Inj) 4 mg Q6H PRN IV NAUSEA AND/OR VOMITING Last administered on 09/07/16 09:17; Admin Dose 4 MG; Start 09/06/16 at 19:30 Acetaminophen (Tylenol Tab) 650 mg Q6H PRN PO PAIN LEVEL 1-3 OR FEVER Last administered on 09/13/16 23:02; Admin Dose 650 MG; Start 09/06/16 at 19:30 Acetaminophen (Tylenol Supp) 650 mg Q6H PRN [place] PAIN LEVEL 1-3 OR FEVER; Start 09/06/16 at 19:30 Acetaminophen/ Hydrocodone Bitart ([place] (5/325)) 1 tab Q6H PRN PO MODERATE PAIN LEVEL 4-6 Last administered on 09/09/16 23:43; Admin Dose 1 TAB; Start at 19:30 Morphine Sulfate (morphine) 2 mg Q4H PRN IV SEVERE PAIN LEVEL 7-10 Last administered on 09/10/16 12:37; Admin Dose 2 MG; Start 09/06/16 at 19:30 Docusate Sodium (Colace) 100 mg Q12H PRN PO CONSTIPATION Last administered on 18:26; Admin Dose 100 MG; Start 09/06/16 at 19:30 Bisacodyl (Dulcolax) 5 mg DAILY PRN PO CONSTIPATION Last administered on 18:26; Admin Dose 5 MG; Start 09/06/16 at 19:30 Rifampin (Rifampin) 600 mg DAILY PO Last administered on 09/14/16 09:11; Admin Dose 600 MG; Start 09/09/16 at 14:00 Ibuprofen 800 mg 800 mg Q6H PRN PO PAIN; Start 09/10/16 at 23:30 Lactated Ringer's (Lr) 1,000 ml @ 125 mls/hr Q8H IV Last administered on 14:20; Admin Dose 125 MLS/HR; Start 09/10/16 at 22:20 Oxycodone HCl (Roxicodone) 5 mg Q4H PRN PO PAIN LEVEL 1-3 Last administered on 09/14/16 09:19; Admin Dose 5 MG; Start 09/10/16 at 22:30 Oxycodone HCl (Roxicodone) 10 mg Q4H PRN PO PAIN LEVEL 4-7 Last administered on 09/14/16 13:13; Admin Dose 10 MG; Start 09/10/16 at 22:30 Hydromorphone HCl (Dilaudid) 1 mg Q3H PRN IV PAIN LEVEL 8-10 Last administered on 09/14/16 11:12; Admin Dose 1 MG; Start 09/10/16 at 22:30 Bisacodyl (Dulcolax Supp) 10 mg Q12H PRN [place] CONSTIPATION; Start 09/10/16 at 22: 30 Magnesium Hydroxide (Milk Of Mag) 30 ml BID PRN PO CONSTIPATION; Start at 22:30 Sodium Biphosphate/ Sodium Phosphate (Fleet Enema) 133 ml DAILY PRN [place] CONSTIPATION; Start 09/10/16 at 22:30 Docusate Sodium (Colace) 100 mg BID PO Last administered on 09/14/16 09:11; Admin Dose 100 MG; Start 09/10/16 at 21:00 Diphenhydramine HCl (Benadryl) 25 mg Q6H PRN PO PRURITUS; Start 09/10/16 at 22: 30 Aspirin (Ecotrin) 325 mg BID PO Last administered on 09/14/16 09:10; Admin Dose 325 MG; Start 09/12/16 at 09:00; Stop 10/14/16 at 08:59 Pantoprazole (Protonix Tab) 40 mg BID@06,18 PO Last administered on 09/14/16 06 :01; Admin Dose 40 MG; Start 09/11/16 at 06:00 IV Flush 10 ml 10 ml PRN PRN IV IV PROTOCOL; Start 09/13/16 at 10:00 Vancomycin HCl/ Sodium Chloride (Vancocin/NS) 250 ml @ 83.333 mls/ hr Q8H IVPB Last administered on 09/14/16 10:16; Admin Dose 83.333 MLS/HR; Start 09/14/16 at 10:00 MICH ACOSTA Sep 14, 2016 15:06
[2016-09-14] MEDS ORDERED: POTASSIUM CHLORIDE (SR) 20 MEQ TAB PO STA (15:14)
[2016-09-14] MEDS ORDERED: POTASSIUM CHLORIDE 20 MEQ POWDER FOR ORAL SOLN PO ONE (15:30)
[2016-09-14] MEDS: SOD FERRIC GLUC COMPLX 125 MG in SOD CHLORIDE 0.9% 100 ML IVPB SCH (17:00)
[2016-09-14 19:33] VITALS: BP 107/54; RESP 18
[2016-09-15] MEDS: oxyCODONE 5 MG TAB PO PRN ×5 (01:06→18:14)
[2016-09-15] MEDS: VANCOMYCIN 1.25 GM in SOD CHLORIDE 0.9% 250 ML IVPB SCH ×2 (02:16→10:11)
[2016-09-15] MEDS: HYDROmorphONE 1 MG/ML SYG IV PRN ×6 (04:29→23:11)
[2016-09-15 05:10] LABS: HEMATOCRIT 29.1 % (37.0-47.0); HEMOGLOBIN 9.4 g/dl (12.0-16.0)
[2016-09-15] MEDS: BISACODYL (EC) 5 MG TAB PO PRN (05:11)
[2016-09-15] MEDS: PANTOPRAZOLE (EC) 40 MG TAB PO SCH ×2 (05:11→18:13)
[2016-09-15 05:28] LABS: CALCIUM 8.9 mg/dl (8.4-10.2); CREATININE 0.43 mg/dl (0.44-1.00); POTASSIUM 4.3 mmol/L (3.5-5.1)
[2016-09-15 07:18] VITALS: BP 107/57; RESP 16
--- NOTE | 2016-09-15 08:01 | PN ---
Date/Time of Note Date/Time of Note DATE: 09/15/16 TIME: 07:59 Assessment/Plan VTE Prophylaxis VTE Prophylaxis Intervention: ambulation, SCD's, other (Aspirin 325 mg twice daily) Lines/Catheters IV Catheter Type (from Nrsg): PICC Line Hudson in Place (from Nrsg): No Assessment/Plan Assessment/Plan -Pain Meds as needed -Dress change performed today -OOB with PT -ASA/SCDs for DVT Prophylaxis -Continue monitoring with Internal Medicine -Patient Stable -Likely discharge to acute rehab facility/retirement facility tomorrow Subjective 24 Hr Interval Summary 60-year-old female postop day 4 status post placement of antibiotic spacer to the right hip. No complaints today. Wound continues to heal well. Up and out of bed with physical therapy. Continues to progress. Constitutional: no complaints Exam/Review of Systems Vital Signs Vitals Vital Signs Date Time Temp Pulse Resp B/P Pulse Ox O2 Delivery O2 Flow Rate FiO2 09/15/16 07:18 97.5 79 16 107/57 93 09/13/16 18:45 21 Intake and Output 09/14/16 09/14/16 09/15/16 15:00 23:00 07:00 Intake Total 610 ml 1450 ml Balance 610 ml 1450 ml Exam Free Text/Dictation -Incision: Clean, Dry and Intact without any redness or drainage -Thigh soft -5/5 Quadriceps, Tibialis Anterior, EHL Gastrocnemius/Soleus and Peroneals -Normal Sensation -Palpable DP/PT, Capillary Refill <2 secs -No Distal Edema -Negative Phillip Sign/No calf pain -Toes Freely Movable Constitutional: alert, oriented, well developed Results Result Diagram: 09/15/16 0429 09/15/16 0429 LYNNETTE PANDYA PA-C Sep 15, 2016 08:01
[2016-09-15] MEDS: DOCUSATE SODIUM 100 MG CAP PO SCH ×2 (08:16→20:21)
[2016-09-15] MEDS: ASPIRIN (EC) 325 MG TAB PO SCH ×2 (08:16→20:22)
[2016-09-15] MEDS: RIFAMPIN 300 MG CAP PO SCH (08:17)
--- NOTE | 2016-09-15 14:34 | CONS ---
Date/Time of Note Date/Time of Note DATE: 09/15/16 TIME: 14:28 Assessment/Plan Assessment/Plan Chief Complaint/Hosp Course ID PROGRESS NOTE * Awake, alert, no fevers, NAD, pain controlled, renal fx stable on Vanco IV * Pt worked with PTx this am * Right leg blisters and scabs = noted * MICROBIOLOGY: Blood cultures negative. R hip drainage + MRSA on 08/13/2016, intraoperative cultures (+)KALEE w/(-)anaerobes * ANTIMICROBIALS: 1. Vancomycin. 2. Rifampin PHYSICAL EXAMINATION: GENERAL: 60 yo F, VSS, NAD HEENT: Unremarkable NECK: Supple. CHEST: Rise symmetrical. Breath sounds clear. HEART: S1, S2. ABDOMEN: Soft, bowel tones present. EXTREMITIES: Without cyanosis, R hip swollen. Scabs/blisters noted on RLEXT ID Assessment/Plan ID Assessment/Plan ID ASSESSMENT/PLAN 1. 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 RLEXT superficial blisters, scabs - stable 3. Anemia 4. PICC line placed this admission ID RECOMMENDATIONS PLAN: ANTIBIOTIC DC RECOMMENDATIONS PER ID When cleared for DC patient may DC on the following ABX: The patient may DC on current ABX when cleared by primary Vanco IV + Rifampin until 11/21/16 - 12/05/16 * EXPLANT DATE INFECTED HIP 09/10/16 * MICRO CULTURES GREW (+)KALEE * prior superficial wound cx on 08/04/16 grew (+)MRSA NOTE: Patient will require IV antibiotics minimum 6 weeks from 09/10/16 to maximum 8 weeks prior to consideration re-do hip implant * -- Recommend check ESR & CRP on 11/19/16 if elevated; then continued Vanco IV until 12/05/16. . . Problems: Consultation Date/Type/Reason Admit Date/Time Sep 06, 2016 at 15:47 Type of Consultation: Infectious disease Exam/Review of Systems Vital Signs Vitals Vital Signs Date Time Temp Pulse Resp B/P Pulse Ox O2 Delivery O2 Flow Rate FiO2 09/15/16 07:18 97.5 79 16 107/57 93 09/13/16 18:45 21 Intake and Output 09/14/16 09/14/16 09/15/16 15:00 23:00 07:00 Intake Total 610 ml 1450 ml Balance 610 ml 1450 ml Results Result Diagram: 09/15/16 0429 09/15/16 0429 Results 24 hrs Laboratory Tests Test 09/15/16 01:02 09/15/16 04:29 Vancomycin Level Trough 13.0 Hemoglobin 9.4 L Hematocrit 29.1 L Sodium Level 139 Potassium Level 4.3 Chloride Level 99 Carbon Dioxide Level 27 Anion Gap 17 #H Blood Urea Nitrogen 9 Creatinine 0.43 L Glucose Level 90 Calcium Level 8.9 Medications Medications Current Medications Ondansetron HCl (Zofran Inj) 4 mg Q6H PRN IV NAUSEA AND/OR VOMITING Last administered on 09/07/16 09:17; Admin Dose 4 MG; Start 09/06/16 at 19:30 Acetaminophen (Tylenol Tab) 650 mg Q6H PRN PO PAIN LEVEL 1-3 OR FEVER Last administered on 09/13/16 23:02; Admin Dose 650 MG; Start 09/06/16 at 19:30 Acetaminophen (Tylenol Supp) 650 mg Q6H PRN [place] PAIN LEVEL 1-3 OR FEVER; Start 09/06/16 at 19:30 Acetaminophen/ Hydrocodone Bitart ([place] (5/325)) 1 tab Q6H PRN PO MODERATE PAIN LEVEL 4-6 Last administered on 09/09/16 23:43; Admin Dose 1 TAB; Start at 19:30 Morphine Sulfate (morphine) 2 mg Q4H PRN IV SEVERE PAIN LEVEL 7-10 Last administered on 09/10/16 12:37; Admin Dose 2 MG; Start 09/06/16 at 19:30 Docusate Sodium (Colace) 100 mg Q12H PRN PO CONSTIPATION Last administered on 18:26; Admin Dose 100 MG; Start 09/06/16 at 19:30 Bisacodyl (Dulcolax) 5 mg DAILY PRN PO CONSTIPATION Last administered on 05:11; Admin Dose 5 MG; Start 09/06/16 at 19:30 Rifampin (Rifampin) 600 mg DAILY PO Last administered on 09/15/16 08:17; Admin Dose 600 MG; Start 09/09/16 at 14:00 Ibuprofen (Motrin) 800 mg Q6H PRN PO PAIN; Start 09/10/16 at 23:30 Oxycodone HCl (Roxicodone) 5 mg Q4H PRN PO PAIN LEVEL 1-3 Last administered on 09/15/16 14:15; Admin Dose 5 MG; Start 09/10/16 at 22:30 Oxycodone HCl (Roxicodone) 10 mg Q4H PRN PO PAIN LEVEL 4-7 Last administered on 09/15/16 10:12; Admin Dose 10 MG; Start 09/10/16 at 22:30 Hydromorphone HCl (Dilaudid) 1 mg Q3H PRN IV PAIN LEVEL 8-10 Last administered on 09/15/16 13:16; Admin Dose 1 MG; Start 09/10/16 at 22:30 Bisacodyl (Dulcolax Supp) 10 mg Q12H PRN [place] CONSTIPATION; Start 09/10/16 at 22: 30 Magnesium Hydroxide (Milk Of Mag) 30 ml BID PRN PO CONSTIPATION; Start at 22:30 Sodium Biphosphate/ Sodium Phosphate (Fleet Enema) 133 ml DAILY PRN [place] CONSTIPATION; Start 09/10/16 at 22:30 Docusate Sodium (Colace) 100 mg BID PO Last administered on 09/15/16 08:16; Admin Dose 100 MG; Start 09/10/16 at 21:00 Diphenhydramine HCl (Benadryl) 25 mg Q6H PRN PO PRURITUS; Start 09/10/16 at 22: 30 Aspirin (Ecotrin) 325 mg BID PO Last administered on 09/15/16 08:16; Admin Dose 325 MG; Start 09/12/16 at 09:00; Stop 10/14/16 at 08:59 Pantoprazole (Protonix Tab) 40 mg BID@06,18 PO Last administered on 09/15/16 05 :11; Admin Dose 40 MG; Start 09/11/16 at 06:00 IV Flush 10 ml 10 ml PRN PRN IV IV PROTOCOL; Start 09/13/16 at 10:00 Vancomycin HCl 1.25 gm/Sodium Chloride 250 ml @ 83.333 mls/ hr Q8H IVPB Last administered on 09/15/16 10:11; Admin Dose 83.333 MLS/HR; Start 09/14/16 at 10:00 ; Stop 09/15/16 at 16:00 Ferric Sodium Gluconate Complex 125 mg/Sodium Chloride 110 ml @ 100 mls/hr Q24H IVPB Last administered on 09/14/16 17:00; Admin Dose 100 MLS/HR; Start 09/14/16 at 15:30; Stop 09/16/16 at 16:35 Vancomycin HCl (Vancocin) 250 ml @ 125 mls/hr Q8H IVPB ; Start 09/15/16 at 18:00 KHANG CABRALES NP Sep 15, 2016 14:34
[2016-09-15] MEDS: SOD FERRIC GLUC COMPLX 125 MG in SOD CHLORIDE 0.9% 100 ML IVPB SCH (15:16)
--- NOTE | 2016-09-15 17:47 | PN ---
Date/Time of Note Date/Time of Note DATE: 09/15/16 TIME: 17:46 Assessment/Plan VTE Prophylaxis VTE Prophylaxis Intervention: other Lines/Catheters IV Catheter Type (from Nrsg): PICC Line Central line still needed: Yes Urinary Cath still in place: No Assessment/Plan Chief Complaint/Hosp Course HIP CELLULITES HX HIP SURGERY s/p rt hip surgery post op anemia PLAN ANTIBIOTIC per surgery AND ID Problems: Subjective 24 Hr Interval Summary Respiratory: no complaints Cardiovascular: no complaints Musculoskeletal: bone/joint pain (+) Exam/Review of Systems Vital Signs Vitals Vital Signs Date Time Temp Pulse Resp B/P Pulse Ox O2 Delivery O2 Flow Rate FiO2 09/15/16 07:18 97.5 79 16 107/57 93 09/13/16 18:45 21 Intake and Output 09/14/16 09/14/16 09/15/16 15:00 23:00 07:00 Intake Total 610 ml 1450 ml Balance 610 ml 1450 ml Exam Neck: supple Respiratory: clear to auscultation Cardiovascular: regular rate and rhythm Gastrointestinal: soft Musculoskeletal: nl extremities to inspection Extremities: normal pulses Results Result Diagram: 09/15/16 0429 09/15/16 0429 Results 24 hrs Laboratory Tests Test 09/15/16 01:02 09/15/16 04:29 Vancomycin Level Trough 13.0 Hemoglobin 9.4 L Hematocrit 29.1 L Sodium Level 139 Potassium Level 4.3 Chloride Level 99 Carbon Dioxide Level 27 Anion Gap 17 #H Blood Urea Nitrogen 9 Creatinine 0.43 L Glucose Level 90 Calcium Level 8.9 Medications Medications Current Medications Ondansetron HCl (Zofran Inj) 4 mg Q6H PRN IV NAUSEA AND/OR VOMITING Last administered on 09/07/16 09:17; Admin Dose 4 MG; Start 09/06/16 at 19:30 Acetaminophen (Tylenol Tab) 650 mg Q6H PRN PO PAIN LEVEL 1-3 OR FEVER Last administered on 09/13/16 23:02; Admin Dose 650 MG; Start 09/06/16 at 19:30 Acetaminophen (Tylenol Supp) 650 mg Q6H PRN [place] PAIN LEVEL 1-3 OR FEVER; Start 09/06/16 at 19:30 Acetaminophen/ Hydrocodone Bitart ([place] (5/325)) 1 tab Q6H PRN PO MODERATE PAIN LEVEL 4-6 Last administered on 09/09/16 23:43; Admin Dose 1 TAB; Start at 19:30 Morphine Sulfate (morphine) 2 mg Q4H PRN IV SEVERE PAIN LEVEL 7-10 Last administered on 09/10/16 12:37; Admin Dose 2 MG; Start 09/06/16 at 19:30 Docusate Sodium (Colace) 100 mg Q12H PRN PO CONSTIPATION Last administered on 18:26; Admin Dose 100 MG; Start 09/06/16 at 19:30 Bisacodyl (Dulcolax) 5 mg DAILY PRN PO CONSTIPATION Last administered on 05:11; Admin Dose 5 MG; Start 09/06/16 at 19:30 Rifampin (Rifampin) 600 mg DAILY PO Last administered on 09/15/16 08:17; Admin Dose 600 MG; Start 09/09/16 at 14:00 Ibuprofen (Motrin) 800 mg Q6H PRN PO PAIN; Start 09/10/16 at 23:30 Oxycodone HCl (Roxicodone) 5 mg Q4H PRN PO PAIN LEVEL 1-3 Last administered on 09/15/16 14:15; Admin Dose 5 MG; Start 09/10/16 at 22:30 Oxycodone HCl (Roxicodone) 10 mg Q4H PRN PO PAIN LEVEL 4-7 Last administered on 09/15/16 10:12; Admin Dose 10 MG; Start 09/10/16 at 22:30 Hydromorphone HCl (Dilaudid) 1 mg Q3H PRN IV PAIN LEVEL 8-10 Last administered on 09/15/16 16:49; Admin Dose 1 MG; Start 09/10/16 at 22:30 Bisacodyl (Dulcolax Supp) 10 mg Q12H PRN [place] CONSTIPATION; Start 09/10/16 at 22: 30 Magnesium Hydroxide (Milk Of Mag) 30 ml BID PRN PO CONSTIPATION; Start at 22:30 Sodium Biphosphate/ Sodium Phosphate (Fleet Enema) 133 ml DAILY PRN [place] CONSTIPATION; Start 09/10/16 at 22:30 Docusate Sodium (Colace) 100 mg BID PO Last administered on 09/15/16 08:16; Admin Dose 100 MG; Start 09/10/16 at 21:00 Diphenhydramine HCl (Benadryl) 25 mg Q6H PRN PO PRURITUS; Start 09/10/16 at 22: 30 Aspirin (Ecotrin) 325 mg BID PO Last administered on 09/15/16 08:16; Admin Dose 325 MG; Start 09/12/16 at 09:00; Stop 10/14/16 at 08:59 Pantoprazole (Protonix Tab) 40 mg BID@06,18 PO Last administered on 09/15/16 05 :11; Admin Dose 40 MG; Start 09/11/16 at 06:00 IV Flush 10 ml 10 ml PRN PRN IV IV PROTOCOL; Start 09/13/16 at 10:00 Ferric Sodium Gluconate Complex 125 mg/Sodium Chloride 110 ml @ 100 mls/hr Q24H IVPB Last administered on 09/15/16 15:16; Admin Dose 100 MLS/HR; Start 09/14/16 at 15:30; Stop 09/16/16 at 16:35 Vancomycin HCl (Vancocin) 250 ml @ 125 mls/hr Q8H IVPB ; Start 09/15/16 at 18:00 TONY CADET MD Sep 15, 2016 17:47
[2016-09-15] MEDS: VANCOMYCIN 1 GM in NS 250 ML IVPB SCH (18:13)
[2016-09-15 19:05] VITALS: BP 106/49; RESP 19
[2016-09-16] MEDS: VANCOMYCIN 1 GM in NS 250 ML IVPB SCH ×3 (01:50→18:00)
[2016-09-16] MEDS: oxyCODONE 5 MG TAB PO PRN ×5 (01:53→18:11)
[2016-09-16] MEDS: HYDROmorphONE 1 MG/ML SYG IV PRN ×4 (04:18→16:02)
[2016-09-16] MEDS: PANTOPRAZOLE (EC) 40 MG TAB PO SCH ×2 (05:38→18:00)
[2016-09-16 05:46] LABS: HEMATOCRIT 32.8 % (37.0-47.0); HEMOGLOBIN 10.4 g/dl (12.0-16.0)
[2016-09-16 06:18] LABS: CALCIUM 8.7 mg/dl (8.4-10.2); CREATININE 0.51 mg/dl (0.44-1.00); POTASSIUM 3.9 mmol/L (3.5-5.1)
--- NOTE | 2016-09-16 07:53 | PN ---
Date/Time of Note Date/Time of Note DATE: 09/16/16 TIME: 07:50 Assessment/Plan VTE Prophylaxis VTE Prophylaxis Intervention: ambulation, SCD's, other (Aspirin 325 mg twice daily) Lines/Catheters IV Catheter Type (from Nrsg): PICC Line [place] in Place (from Nrsg): No Assessment/Plan Assessment/Plan -Pain Meds as needed -Dress change performed today -OOB with PT -ASA/SCDs for DVT Prophylaxis -Continue monitoring with Internal Medicine -Patient Stable -We will continue to await authorization for transfer to acute rehab facility/ care home facility for closer monitoring after discharge from the hospital. Subjective 24 Hr Interval Summary 60-year-old female postop day 5 antibiotic spacer placement. Denies any pain complaints. Patient continues with physical therapy. Denies any chest pain/ tightness. No calf pain. Patient is lying comfortably in bed. Constitutional: no complaints Pain Control: well controlled Exam/Review of Systems Vital Signs Vitals Vital Signs Date Time Temp Pulse Resp B/P Pulse Ox O2 Delivery O2 Flow Rate FiO2 09/15/16 19:05 98.0 90 19 106/49 93 09/13/16 18:45 21 Intake and Output 09/15/16 09/15/16 09/16/16 15:00 23:00 07:00 Intake Total 250 ml 1540 ml 630 ml Output Total 2450 ml 750 ml Balance 250 ml -910 ml -120 ml Exam Free Text/Dictation -Incision: Clean, Dry and Intact without any redness or drainage -Blister to the anterior thigh also continues to improve. -Thigh soft -5/5 Quadriceps, Tibialis Anterior, EHL Gastrocnemius/Soleus and Peroneals -Normal Sensation -Palpable DP/PT, Capillary Refill <2 secs -No Distal Edema -Negative Phillip Sign/No calf pain -Toes Freely Movable Constitutional: alert, oriented, well developed Results Result Diagram: 09/16/16 0435 09/16/16 0432 LYNNETTE PANDYA PA-C Sep 16, 2016 07:52
[2016-09-16 08:02] VITALS: BP 114/55; RESP 16
[2016-09-16] MEDS: RIFAMPIN 300 MG CAP PO SCH (08:39)
[2016-09-16] MEDS: ASPIRIN (EC) 325 MG TAB PO SCH (08:39)
[2016-09-16] MEDS: DOCUSATE SODIUM 100 MG CAP PO SCH (08:39)
--- NOTE | 2016-09-16 13:06 | PN ---
Date/Time of Note Date/Time of Note DATE: 09/16/16 TIME: 13:04 Assessment/Plan VTE Prophylaxis VTE Prophylaxis Intervention: ambulation Lines/Catheters IV Catheter Type (from Nrsg): PICC Line Central line still needed: Yes Urinary Cath still in place: No Assessment/Plan Chief Complaint/Hosp Course 1. Right hip pain. 2.right hip cellulitis, rule out abscess. Problems: Assessment/Plan 1. CONTINUE CURRENT REGIME 2. placement issue Subjective 24 Hr Interval Summary Constitutional: improved, no complaints Exam/Review of Systems Vital Signs Vitals Vital Signs Date Time Temp Pulse Resp B/P Pulse Ox O2 Delivery O2 Flow Rate FiO2 09/16/16 08:02 98.1 70 16 114/55 98 09/13/16 18:45 21 Intake and Output 09/15/16 09/15/16 09/16/16 15:00 23:00 07:00 Intake Total 250 ml 1540 ml 630 ml Output Total 2450 ml 750 ml Balance 250 ml -910 ml -120 ml Exam Constitutional: alert, oriented Neck: supple Respiratory: clear to auscultation Cardiovascular: regular rate and rhythm Musculoskeletal: muscle weakness (RIGHT HIP) Results Result Diagram: 09/16/16 0435 09/16/16 0432 Results 24 hrs Laboratory Tests Test 09/16/16 04:32 09/16/16 04:35 Sodium Level 136 Potassium Level 3.9 Chloride Level 100 Carbon Dioxide Level 27 Anion Gap 13 Blood Urea Nitrogen 11 Creatinine 0.51 Glucose Level 90 Calcium Level 8.7 Hemoglobin 10.4 L Hematocrit 32.8 L Medications Medications Current Medications Ondansetron HCl (Zofran Inj) 4 mg Q6H PRN IV NAUSEA AND/OR VOMITING Last administered on 09/07/16 09:17; Admin Dose 4 MG; Start 09/06/16 at 19:30 Acetaminophen (Tylenol Tab) 650 mg Q6H PRN PO PAIN LEVEL 1-3 OR FEVER Last administered on 09/13/16 23:02; Admin Dose 650 MG; Start 09/06/16 at 19:30 Acetaminophen (Tylenol Supp) 650 mg Q6H PRN [place] PAIN LEVEL 1-3 OR FEVER; Start 09/06/16 at 19:30 Acetaminophen/ Hydrocodone Bitart ([place] (5/325)) 1 tab Q6H PRN PO MODERATE PAIN LEVEL 4-6 Last administered on 09/09/16 23:43; Admin Dose 1 TAB; Start at 19:30 Morphine Sulfate (morphine) 2 mg Q4H PRN IV SEVERE PAIN LEVEL 7-10 Last administered on 09/10/16 12:37; Admin Dose 2 MG; Start 09/06/16 at 19:30 Docusate Sodium (Colace) 100 mg Q12H PRN PO CONSTIPATION Last administered on 18:26; Admin Dose 100 MG; Start 09/06/16 at 19:30 Bisacodyl (Dulcolax) 5 mg DAILY PRN PO CONSTIPATION Last administered on 05:11; Admin Dose 5 MG; Start 09/06/16 at 19:30 Rifampin (Rifampin) 600 mg DAILY PO Last administered on 09/16/16 08:39; Admin Dose 600 MG; Start 09/09/16 at 14:00 Ibuprofen (Motrin) 800 mg Q6H PRN PO PAIN; Start 09/10/16 at 23:30 Oxycodone HCl (Roxicodone) 5 mg Q4H PRN PO PAIN LEVEL 1-3 Last administered on 09/15/16 14:15; Admin Dose 5 MG; Start 09/10/16 at 22:30 Oxycodone HCl (Roxicodone) 10 mg Q4H PRN PO PAIN LEVEL 4-7 Last administered on 09/16/16 10:09; Admin Dose 10 MG; Start 09/10/16 at 22:30 Hydromorphone HCl (Dilaudid) 1 mg Q3H PRN IV PAIN LEVEL 8-10 Last administered on 09/16/16 12:06; Admin Dose 1 MG; Start 09/10/16 at 22:30 Bisacodyl (Dulcolax Supp) 10 mg Q12H PRN [place] CONSTIPATION; Start 09/10/16 at 22: 30 Magnesium Hydroxide (Milk Of Mag) 30 ml BID PRN PO CONSTIPATION; Start at 22:30 Sodium Biphosphate/ Sodium Phosphate (Fleet Enema) 133 ml DAILY PRN [place] CONSTIPATION; Start 09/10/16 at 22:30 Docusate Sodium (Colace) 100 mg BID PO Last administered on 09/16/16 08:39; Admin Dose 100 MG; Start 09/10/16 at 21:00 Diphenhydramine HCl (Benadryl) 25 mg Q6H PRN PO PRURITUS Last administered on 23:11; Admin Dose 25 MG; Start 09/10/16 at 22:30 Aspirin (Ecotrin) 325 mg BID PO Last administered on 09/16/16 08:39; Admin Dose 325 MG; Start 09/12/16 at 09:00; Stop 10/14/16 at 08:59 Pantoprazole (Protonix Tab) 40 mg BID@06,18 PO Last administered on 09/16/16 05 :38; Admin Dose 40 MG; Start 09/11/16 at 06:00 IV Flush 10 ml 10 ml PRN PRN IV IV PROTOCOL; Start 09/13/16 at 10:00 Ferric Sodium Gluconate Complex 125 mg/Sodium Chloride 110 ml @ 100 mls/hr Q24H IVPB Last administered on 09/15/16 15:16; Admin Dose 100 MLS/HR; Start 09/14/16 at 15:30; Stop 09/16/16 at 16:35 Vancomycin HCl (Vancocin) 250 ml @ 125 mls/hr Q8H IVPB Last administered on 10:09; Admin Dose 125 MLS/HR; Start 09/15/16 at 18:00 MICH ACOSTA Sep 16, 2016 13:06
[2016-09-16] MEDS ORDERED: OXYC-481 PO (14:06)
[2016-09-16] MEDS ORDERED: UDMOM PO (14:06)
[2016-09-16] MEDS: SOD FERRIC GLUC COMPLX 125 MG in SOD CHLORIDE 0.9% 100 ML IVPB SCH (16:25)
--- NOTE | 2016-09-16 17:36 | CONS ---
Date/Time of Note Date/Time of Note DATE: 09/16/16 TIME: 17:25 Assessment/Plan Assessment/Plan Chief Complaint/Hosp Course SUBJECTIVE: No events overnight. No fevers. Alert, looks comfortable MICROBIOLOGY: Blood cultures negative. R hip drainage + MRSA on 08/13/2016, intraoperative cultures growing MSSA, negative anaerobes ANTIMICROBIALS: The patient is on: 1. Vancomycin. 2. Rifampin PHYSICAL EXAMINATION: GENERAL: Fragile, elderly woman who is in no distress. HEENT: Head atraumatic, normocephalic. Sclerae anicteric. Buccal mucosa pink. NECK: Supple. CHEST: Rise symmetrical. Breath sounds clear. HEART: S1, S2. ABDOMEN: Soft, bowel tones present. EXTREMITIES: Without cyanosis, R hip swollen. ASSESSMENT: 1. Infected right hip arthroplasty, status post infected arthroplasty removal on 09/10/2016 2. Anemia PLAN: The patient remains stable, awaiting for acute rehab. Continue present care. Continue on current antibiotics for 6-8 weeks DW patient Problems: Consultation Date/Type/Reason Admit Date/Time Sep 06, 2016 at 15:47 Type of Consultation: Infectious disease Exam/Review of Systems Vital Signs Vitals Vital Signs Date Time Temp Pulse Resp B/P Pulse Ox O2 Delivery O2 Flow Rate FiO2 09/16/16 08:02 98.1 70 16 114/55 98 09/13/16 18:45 21 Intake and Output 09/15/16 09/15/16 09/16/16 15:00 23:00 07:00 Intake Total 250 ml 1540 ml 630 ml Output Total 2450 ml 750 ml Balance 250 ml -910 ml -120 ml Results Result Diagram: 09/16/16 0435 09/16/16 0432 Results 24 hrs Laboratory Tests Test 09/16/16 04:32 09/16/16 04:35 Sodium Level 136 Potassium Level 3.9 Chloride Level 100 Carbon Dioxide Level 27 Anion Gap 13 Blood Urea Nitrogen 11 Creatinine 0.51 Glucose Level 90 Calcium Level 8.7 Hemoglobin 10.4 L Hematocrit 32.8 L Medications Medications Current Medications Ondansetron HCl (Zofran Inj) 4 mg Q6H PRN IV NAUSEA AND/OR VOMITING Last administered on 09/07/16t 09:17; Admin Dose 4 MG; Start 09/06/16 at 19:30 Acetaminophen (Tylenol Tab) 650 mg Q6H PRN PO PAIN LEVEL 1-3 OR FEVER Last administered on 09/13/16 23:02; Admin Dose 650 MG; Start 09/06/16 at 19:30 Acetaminophen (Tylenol Supp) 650 mg Q6H PRN TN PAIN LEVEL 1-3 OR FEVER; Start 09/06/16 at 19:30 Acetaminophen/ Hydrocodone Bitart ([place] (5/325)) 1 tab Q6H PRN PO MODERATE PAIN LEVEL 4-6 Last administered on 09/09/16 23:43; Admin Dose 1 TAB; Start at 19:30 Morphine Sulfate (morphine) 2 mg Q4H PRN IV SEVERE PAIN LEVEL 7-10 Last administered on 09/10/16 12:37; Admin Dose 2 MG; Start 09/06/16 at 19:30 Docusate Sodium (Colace) 100 mg Q12H PRN PO CONSTIPATION Last administered on 18:26; Admin Dose 100 MG; Start 09/06/16 at 19:30 Bisacodyl (Dulcolax) 5 mg DAILY PRN PO CONSTIPATION Last administered on 05:11; Admin Dose 5 MG; Start 09/06/16 at 19:30 Rifampin (Rifampin) 600 mg DAILY PO Last administered on 09/16/16 08:39; Admin Dose 600 MG; Start 09/09/16 at 14:00 Ibuprofen (Motrin) 800 mg Q6H PRN PO PAIN; Start 09/10/16 at 23:30 Oxycodone HCl (Roxicodone) 5 mg Q4H PRN PO PAIN LEVEL 1-3 Last administered on 09/15/16 14:15; Admin Dose 5 MG; Start 09/10/16 at 22:30 Oxycodone HCl (Roxicodone) 10 mg Q4H PRN PO PAIN LEVEL 4-7 Last administered on 09/16/16 14:18; Admin Dose 10 MG; Start 09/10/16 at 22:30 Hydromorphone HCl (Dilaudid) 1 mg Q3H PRN IV PAIN LEVEL 8-10 Last administered on 09/16/16 16:02; Admin Dose 1 MG; Start 09/10/16 at 22:30 Bisacodyl (Dulcolax Supp) 10 mg Q12H PRN TN CONSTIPATION; Start 09/10/16 at 22: 30 Magnesium Hydroxide (Milk Of Mag) 30 ml BID PRN PO CONSTIPATION; Start at 22:30 Sodium Biphosphate/ Sodium Phosphate (Fleet Enema) 133 ml DAILY PRN TN CONSTIPATION; Start 09/10/16 at 22:30 Docusate Sodium (Colace) 100 mg BID PO Last administered on 09/16/16 08:39; Admin Dose 100 MG; Start 09/10/16 at 21:00 Diphenhydramine HCl (Benadryl) 25 mg Q6H PRN PO PRURITUS Last administered on 23:11; Admin Dose 25 MG; Start 09/10/16 at 22:30 Aspirin (Ecotrin) 325 mg BID PO Last administered on 09/16/16 08:39; Admin Dose 325 MG; Start 09/12/16 at 09:00; Stop 10/14/16 at 08:59 Pantoprazole (Protonix Tab) 40 mg BID@06,18 PO Last administered on 09/16/16 05 :38; Admin Dose 40 MG; Start 09/11/16 at 06:00 IV Flush 10 ml 10 ml PRN PRN IV IV PROTOCOL; Start 09/13/16 at 10:00 Vancomycin HCl (Vancocin) 250 ml @ 125 mls/hr Q8H IVPB Last administered on 10:09; Admin Dose 125 MLS/HR; Start 09/15/16 at 18:00 SHARITA ROBERTS NP Sep 16, 2016 17:36
== END 2016-09-16 18:30 | DRG 464 ==
LOC: E/R 11:48 → MS2 15:47 → MS1 09-10 18:47
PROVIDERS: ADMIT Internal Medicine Nephrology; ATTEND Internal Medicine Nephrology
PROC: 0SP90JZ Removal of Synthetic Substitute from Right Hip Joint, Open Approach (ICD-10-PCS; principal; 2016-09-06)
PROC: 0SH908Z Insertion of Spacer into Right Hip Joint, Open Approach (ICD-10-PCS; 2016-09-06)
PROC: 30233N1 Transfusion of Nonautologous Red Blood Cells into Peripheral Vein, Percutaneous Approach (ICD-10-PCS; 2016-09-11)
PROC: 02HV33Z Insertion of Infusion Device into Superior Vena Cava, Percutaneous Approach (ICD-10-PCS; 2016-09-13)
DX: T84.51XA Infection and inflammatory reaction due to internal right hip prosthesis, initial encounter (principal); L03.115 Cellulitis of right lower limb; B95.62 Methicillin resistant Staphylococcus aureus infection as the cause of diseases classified elsewhere; Y83.2 Surgical operation with anastomosis, bypass or graft as the cause of abnormal reaction of the patient, or of later complication, without mention of misadventure at the time of the procedure; D64.9 Anemia, unspecified; S80.821A Blister (nonthermal), right lower leg, initial encounter; X58.XXXA Exposure to other specified factors, initial encounter; Y92.238 Other place in hospital as the place of occurrence of the external cause
CPT/HCPCS: 36415; 36430; 36569; 71010; 72170; 73500; 73530; 76536; 76937; 80048; 80053; 80202; 81001; 81003; 82565; 83690; 84484; 84520; 85014; 85018; 85025; 85610; 85651; 86140; 86850; 86900; 86901; 86920; 87040; 87070; 87075; 87086; 88300; 93005; 96374; 96375; 97110; 97116; 97162; 97530; C1713; C1776; C9113; J0131; J0696; J1100; J1170; J1956; J2175; J2250; J2270; J2370; J2405; J2543; J2765; J2916; J3010; J3370; J7030; J7050; J7120; P9016; P9045

== ENCOUNTER → 2016-09-06 | Outpatient (CLI) | payer OTHER ==
[~2016-09-06] MED LIST changes: -IOHEXOL 300MG/ML 30 ML BTL ONE
== END | disposition home or self-care (01) ==
LOC: HKI 08:50
PROVIDERS: ATTEND Orthopaedic Surgery
DX: M25.551 Pain in right hip (principal); R22.41 Localized swelling, mass and lump, right lower limb; Z96.641 Presence of right artificial hip joint

== ENCOUNTER → 2016-09-23 | Outpatient (CLI) | payer OTHER ==
[~2016-09-23] MED LIST changes: +ASPI325T32 PO; -HYDR-3498 PO; +OXYC-481 PO; +PANT40TA4 PO; +RIF120L PO; +UDMOM PO
--- NOTE | 2016-09-23 16:45 | RADRPT ---
PROCEDURE: XR Right hip and pelvis. CLINICAL INDICATION: Right hip pain. Pelvic pain. Postop. TECHNIQUE: Two views. Frontal pelvis and frontal right hip. COMPARISON: 09/10/2016. FINDINGS: As seen previously, there is a right hip arthroplasty with antibiotic beads in the right hip joint i nferiorly. Surgical drains have been removed. Alignment is satisfactory. There are 3 cerclage wires surrounding a recent fracture of the proximal shaft of the right femur. No significant healing has occurred. The left hip and pelvis are otherwise grossly normal. IMPRESSION: 1. Revision arthroplasty with antibiotic beads in the right hip joint space. 2. Recent fracture of the proximal right femur with cerclage wire fixation in place, unchanged. 3. No other change from the prior study. RPTAT: QQ .Fili Morejon MD, Date Time Electronically viewed and signed by .Fili Morejon MD, MD on 09/23/2016 16:44 .R/
== END | disposition home or self-care (01) ==
LOC: HKI 13:37
PROVIDERS: ATTEND Orthopaedic Surgery
DX: Z47.1 Aftercare following joint replacement surgery (principal); Z96.641 Presence of right artificial hip joint
CPT/HCPCS: 73502

== ENCOUNTER → 2016-10-21 | Outpatient (CLI) | payer OTHER ==
--- NOTE | 2016-10-21 22:12 | RADRPT ---
PROCEDURE: XR Right hip and pelvis. CLINICAL INDICATION: Right hip pain. Pelvic pain. Postop. TECHNIQUE: Two views. Frontal pelvis and frontal right hip. COMPARISON: 09/10/2016. FINDINGS: There is a right hip total arthroplasty revision as seen previously with cerclage wires around the p roximal shaft of the femur. A fracture of the proximal shaft of the femur is once again noted. No significant healing has occurred. Antibiotic beads are longer visualized. Lateral surgical drains are no longer present. The left hip is grossly normal. There is no lytic or blastic lesion. The sacroiliac joints are unremarkable. IMPRESSION: 1. Satisfactory postoperative appearance of the right hip. No significant healing of the fracture of the proximal shaft of the right femur. 2. Grossly normal appearance of the left hip and pelvis. RPTAT: QQ .Fili Morejon MD, MD Date Time Electronically viewed and signed by .Fili Morejon MD, on 10/21/2016 22:12 .R/
== END | disposition home or self-care (01) ==
LOC: HKI 09:33
PROVIDERS: ATTEND Orthopaedic Surgery
DX: S72.301G Unspecified fracture of shaft of right femur, subsequent encounter for closed fracture with delayed healing (principal); X58.XXXD Exposure to other specified factors, subsequent encounter
CPT/HCPCS: 73502

== ENCOUNTER 2016-11-15 17:42 | Emergency (ER) | payer OTHER ==
[~2016-11-15] VITALS: Ht 160 cm; Wt 65.0 kg
[2016-11-15 18:00] VITALS: Ht 160 cm; Wt 65.0 kg
[2016-11-15] MEDS ORDERED: HYDROmorphONE 1 MG/ML SYG IV STA (20:37)
[2016-11-15 21:37] LABS: BASOPHIL # 0.1 10^3/ul (0.0-0.1); BASOPHILS % 0.8 % (0.0-2.0); EOSINOPHILS # 0.6 10^3/ul (0.0-0.5); HEMATOCRIT 37.9 % (37.0-47.0); HEMOGLOBIN 12.4 g/dl (12.0-16.0); LYMPHOCYTES # 2.6 10^3/ul (0.8-2.9); LYMPHOCYTES % 30.3 % (15.0-51.0); MEAN CORPUSCULAR HEMOGLOBIN 28.1 pg (29.0-33.0); MEAN CORPUSCULAR HGB CONC 32.7 g/dl (32.0-37.0); MEAN CORPUSCULAR VOLUME 85.7 fl (82.0-101.0); MEAN PLATELET VOLUME 10.3 fl (7.4-10.4); MONOCYTE # 0.8 10^3/ul (0.3-0.9); MONOCYTES % 9.1 % (0.0-11.0); NEUTROPHILS % 52.6 % (39.0-77.0); PLATELET COUNT 263 10^3/UL (140-415); RED BLOOD COUNT 4.42 10^6/ul (4.20-5.40); RED CELL DISTRIBUTION WIDTH 14.1 % (11.5-14.5); WHITE BLOOD COUNT 8.6 10^3/ul (4.8-10.8)
[2016-11-15] MEDS ORDERED: OXYC5CAP17 PO (21:44)
[2016-11-15] MEDS ORDERED: OXYC10TA63 PO (21:45)
[2016-11-15] MEDS ORDERED: LORA1TAB PO (21:47)
[2016-11-15 21:51] LABS: ADD UMIC NO; UR ASCORBIC ACID NEGATIVE (NEGATIVE); UR BILIRUBIN (Dip) NEGATIVE (NEGATIVE); UR BLOOD (Dip) NEGATIVE (NEGATIVE); UR CLARITY CLEAR (CLEAR); UR COLOR YELLOW (YELLOW); UR GLUCOSE (Dip) NEGATIVE (NEGATIVE); UR KETONES (Dip) NEGATIVE (NEGATIVE); UR LEUKOCYTE ESTERASE (Dip) NEGATIVE Leu/ul (NEGATIVE); UR NITRITE (Dip) NEGATIVE (NEGATIVE); UR SPECIFIC GRAVITY (Dip) 1.015 (1.003-1.030); UR TOTAL PROTEIN (Dip) NEGATIVE (NEGATIVE); UR UROBILINOGEN (Dip) NEGATIVE (NEGATIVE)
[2016-11-15 22:04] LABS: CALCIUM 9.5 mg/dl (8.4-10.2); CREATININE 0.6 mg/dl (0.44-1.00); POTASSIUM 4.1 mmol/L (3.5-5.1)
--- NOTE | 2016-11-15 22:44 | RADRPT ---
PROCEDURE: Noncontrast CT right hip CLINICAL INDICATION: Right hip pain. Prior revision arthroplasty for infection in August 2016. TECHNIQUE: Noncontrast CT examination of the right hip, with axial, sagittal and coronal reformatt ed images. CTDI: 8.59 and DLP: 325.13. COMPARISON: Plain film pelvis and right hip dated 10/21/2016. FINDINGS: Total right hip arthroplasty in place with cerclage wire fixation at the proximal diaphysis of the r ight femur. There is a remote appearing fracture of the proximal femoral diaphysis, about 9 cm belo w the superior margin of the greater trochanter. Otherwise, there is no evident healing at this frac ture over interval since 10/21/2016. There is no evident hardware complication otherwise identified. Degenerative subchondral cystic changes are seen at the right acetabular roof, likely representing s equela of chronic bone on bone articulation with the level[place] right femoral head, no surgically absent . Screw ghost hole is seen at the axial right acetabulum, compatible with prior hardware removal. The re is a new cement mantle in place over the acetabular cup. There is no acute fracture or dislocation. Metallic artifact associated with right hip arthroplasty limits evaluation of this soft tissues of the right hip. Soft tissues otherwise unremarkable. IMPRESSION: 1. Revision right hip arthroplasty in place with cerclage wire fixators over the proximal femoral d iaphysis. 2. Remote appearing fracture of the proximal femoral diaphysis, otherwise without evident healing o anjel interval since 10/21/2016. 3. Otherwise, no evident hardware complication. 4. No evident acute fracture. RPTAT: [facility] Physician Patrice Date Time Electronically viewed and signed by Physician Patrice on 11/15/2016 22:43 RS/
[2016-11-15] MEDS ORDERED: OXYC-209 PO (23:32)
--- NOTE | 2016-11-15 23:36 | ERD ---
ER Documentation Chief Complaint Date/Time DATE: 11/15/16 TIME: 23:33 Chief Complaint Complains of right leg pain HPI 60-year-old female prevents since for increasing right hip pain for the last 3 days. She has a hip prosthesis and has had to have it revised before for MRSA infection. She was on home vancomycin which is discontinued its course. She has had no new trauma but does do many exercises and did exercise this morning before the pain got really bad. She is worried about possible recurrence of infection or disruption of her hip hardware. She has had no fevers chills or other symptoms other than the pain in the right hip ROS All systems reviewed and are negative except as per history of present illness. Medications Home Meds Active Scripts Oxycodone HCl/Acetaminophen (Percocet 10-325 mg Tablet) 1 Each Tablet, 1 EACH PO Q6, #20 TAB Prov:SHASTA LUCIANO DO 11/15/16 Reported Medications Lorazepam* (Lorazepam*) 1 Mg Tablet, 1 MG PO HS Y for ANXIETY, #30 TAB 11/15/16 Oxycodone Hcl* (Oxycontin*) 10 Mg Tab.sr.12h, 10 MG PO Q12, TAB 11/15/16 Oxycodone Hcl* (IR) (Oxycodone Hcl*) 5 Mg Capsule, 5 MG PO Q4H Y for PAIN, CAP 11/15/16 Discontinued Reported Medications Ibuprofen (Ibuprofen) 100 Mg/5 Ml Oral.susp, 800 MG PO Q6H Y for PAIN, ML 10/16/15 Hydrocodone Bit-Acetaminophen* (Vicodin*) 5-300 Tab, 1 TAB PO Q4H Y for PAIN, TAB 10/16/15 Escitalopram Oxalate* (Lexapro*) 5 Mg Tablet, 5 MG PO DAILY, #30 TAB 10/16/15 Discontinued Scripts Oxycodone Hcl* (IR) (Roxicodone*) 5 Mg Tab, 10 MG PO Q4H Y for PAIN LEVEL 4-7 for 28 Days, TAB Prov:MICH ACOSTA 09/16/16 Magnesium Hydroxide* (Marquez' MOM*) 30 Ml Susp, 30 ML PO BID Y for CONSTIPATION for 25 Days Prov:MICH ACOSTA 09/16/16 Pantoprazole* (Pantoprazole*) 40 Mg Tablet.dr, 40 MG PO BID@06,18 for 30 Days, # 60 Prov:EDDIE HUDSON MD 09/13/16 Oxycodone Hcl* (IR) (Roxicodone*) 5 Mg Tab, 5 MG PO Q4H Y for PAIN LEVEL 1-3 for 30 Days, #60 TAB Prov:EDDIE HUDSON MD 09/13/16 Aspirin (Aspir-Natacha) 325 Mg Tablet.dr, 325 MG PO BID for 42 Days, #84 Prov:EDDIE HUDSON MD 09/13/16 Rifampin* (Rifampin* Pediatric IV Syringe) 10 Mg/Ml Susp, 600 MG PO DAILY for 42 Days, #42 Prov:EDDIE HUDSON MD 09/13/16 Docusate Sodium* (Colace*) 100 Mg Capsule, 100 MG PO BID for 28 Days, CAP Prov:TONY CADET MD 10/20/15 Allergies Allergies: Coded Allergies: No Known Allergy (Unverified , 11/15/16) PMhx/Soc History of Surgery: Yes (RT KNEE ARTHROSCOPY,RT HIP SURGERY) Anesthesia Reaction: No Hx Neurological Disorder: No Hx Respiratory Disorders: No Hx Cardiac Disorders: Yes (HYPERCHOLESTEROL) Hx Psychiatric Problems: Yes (HX DEPRESSION) Hx Miscellaneous Medical Probl: Yes (OA, DJD, anemia, R post THR, I/D 11/21/15) Hx Alcohol Use: Yes Hx Substance Use: No Hx Tobacco Use: No Smoking Status: Never smoker Physical Exam Vitals Vital Signs Date Time Temp Pulse Resp B/P Pulse Ox O2 Delivery O2 Flow Rate FiO2 11/15/16 22:19 65 20 95/64 98 Room Air 11/15/16 18:00 98.3 78 20 113/53 98 Physical Exam Const: [] Mild distress Head: Atraumatic Eyes: Normal Conjunctiva Resp: Clear to auscultation bilaterally Cardio: Regular rate and rhythm, no murmurs Abd: Soft, non tender, non distended. Normal bowel sounds Skin: No petechiae or rashes Ext: No cyanosis, or edema, Mild tenderness to greater trochanteric area of the hip, mild painful range of motion.Distal pulses intact bilateral lower extremities. Neur: Awake and alert Psych: Normal Mood and Affect Result Diagram: 11/15/16212111/15/162121 Results 24 hrs Laboratory Tests Test 11/15/16 21:20 11/15/16 21:22 Urine Color YELLOW Urine Clarity CLEAR Urine pH 7.0 Urine Specific [place] 1.015 Urine Ketones NEGATIVEmg/dL Urine Nitrite NEGATIVEmg/dL Urine Bilirubin NEGATIVEmg/dL Urine Urobilinogen NEGATIVEmg/dL Urine Leukocyte Esterase NEGATIVELeu/ul Urine Hemoglobin NEGATIVEmg/dL Urine Glucose NEGATIVEmg/dL Urine Total Protein NEGATIVEmg/dl White Blood Count 8.610^3/ul Red Blood Count 4.4210^6/ul Hemoglobin 12.4g/dl Hematocrit 37.9% Mean Corpuscular Volume 85.7fl Mean Corpuscular Hemoglobin 28.1pg Mean Corpuscular Hemoglobin Concent 32.7g/dl Red Cell Distribution Width 14.1% Platelet Count 75937^3/UL Mean Platelet Volume 10.3fl Neutrophils % 52.6% Lymphocytes % 30.3% Monocytes % 9.1% Eosinophils % 7.0% Basophils % 0.8% Nucleated Red Blood Cells % 0.0/100WBC Neutrophils # (Manual) 4.510^3/ul Lymphocytes # 2.610^3/ul Monocytes # 0.810^3/ul Eosinophils # 0.610^3/ul Basophils # 0.110^3/ul Nucleated Red Blood Cells # 0.010^3/ul Sodium Level 141mmol/L Potassium Level 4.1mmol/L Chloride Level 104mmol/L Carbon Dioxide Level 28mmol/L Anion Gap 13 Blood Urea Nitrogen 12mg/dl Creatinine 0.60mg/dl Glucose Level 89mg/dl Calcium Level 9.5mg/dl Current Medications Medications (Trade) Dose Ordered Sig/Daniel Route PRN Reason Start Time Stop Time Status Last Admin Dose Admin Hydromorphone HCl (Dilaudid) 1 mg ONCE STAT IV 11/15/16 20:37 11/15/16 20:43 DC 11/15/16 21:19 Procedures/MDM Likely strain of right hip from extensive exercise. Patient is in good shape and says that she does do exercises may have overdone it. Workup was performed to rule out any acute abnormalities such as abnormal fluid collection or soft tissue abnormality within the joint itself or hardware disruption. None was found patient also had laboratories done which showed no electrolyte abnormalities or signs of infection with normal white count. She was given a milligram of Dilaudid. I am discharging her with instructions to follow-up with her orthopedic surgeon. She has an appointment 15th and I instructed her to call in sooner if she has continued pain. I am discharging with Percocet. CT right hip interpretation: Hardware in place with no acute fracture dislocation soft tissue abnormality or fluid collection. Departure Diagnosis: Primary Impression: Strain of right hip Condition: Stable Patient Instructions: Hip Strain Additional Instructions: Call your primary care doctor TOMORROW for an appointment during the next 1-2 days.See the doctor sooner or return here if your condition worsens before your appointment time. SHASTA LUCIANO DO Nov 15, 2016 23:36
[2016-11-16 00:09] VITALS: BP 110/64; PULSE 66; RESP 20
== END 2016-11-16 00:11 | disposition home or self-care (01) ==
LOC: E/R 17:42
DX: S76.011A Strain of muscle, fascia and tendon of right hip, initial encounter (principal); X58.XXXA Exposure to other specified factors, initial encounter; Y92.9 Unspecified place or not applicable; Z79.82 Long term (current) use of aspirin
CPT/HCPCS: 36415; 73700; 80048; 81003; 85025; 96374; J1170; Z7502

== ENCOUNTER → 2016-12-11 | Outpatient (CLI) | payer OTHER ==
[~2016-12-11] MED LIST changes: -ASPI325T32 PO; -DOCU-144 PO; -ESCI5TAB PO; -HYDR-2086 PO; -IBUP100O10 PO; +IOHEXOL 300MG/ML 30 ML BTL ONE; +LIDOCAINE 1% (MDV) 20 ML INJ ONE; +LORA1TAB PO; +ONDA4TAB14 PO; +OXYC-209 PO; -OXYC-481 PO; +OXYC10TA63 PO; +OXYC5CAP17 PO; -PANT40TA4 PO; -RIF120L PO; -UDMOM PO
--- NOTE | 2016-12-11 15:43 | RADRPT ---
PROCEDURE: Right hip arthrogram and aspiration. CLINICAL INDICATION: Right hip pain. Postop removal of acetabular component of a total right hip a rthroplasty. History of right hip joint infection. TECHNIQUE: Prior to the procedure, informed consent was obtained. The patient's name, date of bir th, and procedure to be performed were verified. Using local anesthetic, sterile technique and fluo roscopic guidance, a 20-gauge spinal needle was advanced into the right hip joint. Five cc of Omnip aque-300 contrast was injected into the joint. 3 ml of serosanguineous fluid was aspirated and sent for laboratory analysis. COMPARISON: No prior studies available for comparison. FINDINGS: Images demonstrate a total right hip arthroplasty with removal of the acetabular component. Subsequ ent images demonstrate contrast injection in the joint region. Fluoroscopy time is 0.1 minutes. 3 i mages were obtained with the image intensifier. IMPRESSION: 1. Satisfactory right hip arthrogram and aspiration. RPTAT: QQ .Fili Morejon MD, MD Date Time Electronically viewed and signed by .Fili Morejon MD, on 12/11/2016 15:42 .R/
[2016-12-11 16:48] LABS: FLD CLARITY CLOUDY; FLD COLOR RED
[2016-12-11 16:49] LABS: FLD TYPE HIP ASPIRATE
[2016-12-11 16:56] LABS: FLD MN% 73.2 %; FLD RBC 48 /uL; FLD WBC 639 /cmm
[2016-12-11 16:57] LABS: FLD PMN% 26.8 %
== END | disposition home or self-care (01) ==
LOC: RAD 13:37
PROVIDERS: ATTEND Orthopaedic Surgery
DX: M25.551 Pain in right hip (principal); Z96.641 Presence of right artificial hip joint
CPT/HCPCS: 20610; 77002; 87070; 87102; 87116; 89051; Q9967; Z7610

== ENCOUNTER 2017-01-04 11:08 | Emergency (ER) | payer OTHER ==
[~2017-01-04] VITALS: Ht 162.6 cm; Wt 68.0 kg
[~2017-01-04 11:08] MED LIST changes: -IOHEXOL 300MG/ML 30 ML BTL ONE; -LIDOCAINE 1% (MDV) 20 ML INJ ONE; -ONDA4TAB14 PO
[2017-01-04 11:10] VITALS: Ht 162.6 cm; Wt 68.0 kg
--- NOTE | 2017-01-04 14:34 | ERD ---
ER Documentation Chief Complaint Chief Complaint pt bib family with c/o right leg pain, hx surg in August, awaitng anothe surg HPI 60-year-old female with history of total right hip arthroplasty in 2016 with subsequent right hip revision due to hardware infection, presents to ED with her mother for increasing right knee pain today after PT. She is worried about possible recurrence of infection or disruption of her hip hardware. She has had no fevers chills or other symptoms other than the pain in the right knee which is described as sharp, constant, 08/24, The patient states:"I feel like the chyna has moved to my knee". ROS All systems reviewed and are negative except as per history of present illness. Medications Home Meds Active Scripts Ondansetron (Ondansetron Odt) 4 Mg Tab.rapdis, 4 MG PO Q6H Y for NAUSEA AND/OR VOMITING, #10 TAB Prov:JEAN-CLAUDE STEWART MD 01/04/17 Oxycodone HCl/Acetaminophen (Percocet 10-325 mg Tablet) 1 Each Tablet, 1 EACH PO TID for SEVERE PAIN LEVEL 7-10 for 5 Days, #15 TAB Prov:JEAN-CLAUDE STEWART MD 01/04/17 Oxycodone HCl/Acetaminophen (Percocet 10-325 mg Tablet) 1 Each Tablet, 1 EACH PO Q6, #20 TAB Prov:SHASTA LUCIANO DO 11/15/16 Reported Medications Lorazepam* (Lorazepam*) 1 Mg Tablet, 1 MG PO HS Y for ANXIETY, #30 TAB 11/15/16 Oxycodone Hcl* (Oxycontin*) 10 Mg Tab.sr.12h, 10 MG PO Q12, TAB 11/15/16 Oxycodone Hcl* (IR) (Oxycodone Hcl*) 5 Mg Capsule, 5 MG PO Q4H Y for PAIN, CAP 11/15/16 Allergies Allergies: Coded Allergies: No Known Allergy (Unverified , 11/15/16) PMhx/Soc History of Surgery: Yes (RT KNEE ARTHROSCOPY,RT HIP SURGERY) Anesthesia Reaction: No Hx Neurological Disorder: No Hx Respiratory Disorders: No Hx Cardiac Disorders: Yes (HYPERCHOLESTEROL) Hx Psychiatric Problems: Yes (HX DEPRESSION) Hx Miscellaneous Medical Probl: Yes (OA, DJD, anemia, R post THR, I/D 11/21/15) Hx Alcohol Use: No Hx Substance Use: No Hx Tobacco Use: No Smoking Status: Never smoker Physical Exam Vitals Vital Signs Date Time Temp Pulse Resp B/P Pulse Ox O2 Delivery O2 Flow Rate FiO2 01/04/17 11:10 98.8 74 16 117/69 97 Physical Exam Const: Alert, oriented in mild distress due to pain. Head: Atraumatic Eyes: Normal Conjunctiva ENT: Normal External Ears, Nose and Mouth. Neck: Full range of motion..~ No meningismus. Resp: Clear to auscultation bilaterally Cardio: Regular rate and rhythm, no murmurs Ext: Right lower extremity: decreased ROM due to pain. Surgical incision, clean, dry and intact. Right hip: no deformity, no edema, warmth or erythema. Right knee: tenderness in suprapatellar area. No effusion, no erythema, edema or warmth. Results 24 hrs Current Medications Medications (Trade) Dose Ordered Sig/Daniel Route PRN Reason Start Time Stop Time Status Last Admin Dose Admin Hydromorphone HCl (Dilaudid) 1 mg ONCE STAT IV 01/04/17 14:36 01/04/17 14:39 DC 01/04/17 14:51 Ondansetron HCl (Zofran Odt) 8 mg ONCE STAT ODT 01/04/17 17:02 01/04/17 17:04 DC 01/04/17 17:11 [place] [id number] Radiology Main Line: [phone] DIAGNOSTIC IMAGING REPORT Patient: JEN HAWKINS : 1955 Age: 61 Sex: F [id number] DOS: 01/04/17 0000 Ordering MD: JEAN-CLAUDE STEWART MD Location: [facility] Room/Bed: PROCEDURE: Right knee radiographs. CLINICAL INDICATION: Right knee pain. TECHNIQUE: Three views. Weight bearing. Frontal, lateral, and Oblique. COMPARISON: No prior studies are available for comparison. FINDINGS: There is no fracture or dislocation. The soft tissues are normal. The articular surfaces are intact. There is no lytic or blastic lesion. There is residual orthopedic hardware in the medullary space of the distal femur. IMPRESSION: 1. Residual orthopedic hardware in the medullary space of the distal femur. 2. Otherwise unremarkable images of the right knee. RPTAT: QQ .Fili Morejon MD, MD Date Time Electronically viewed and signed by .Fili Morejon MD, MD on 01/04/2017 15:43 .R/ CC: JEAN-CLAUDE STEWART MD [place] [id number] Radiology Main Line: [phone] DIAGNOSTIC IMAGING REPORT Patient: JEN HAWKINS : 1955 Age: 61 Sex: F MR #: [id number] DOS: 01/04/17 0000 Ordering MD: JEAN-CLAUDE STEWART MD Location: [facility] Room/Bed: PROCEDURE: XR Right Hip. CLINICAL INDICATION: Right hip pain. Postop. TECHNIQUE: Two views. Frontal and lateral. COMPARISON: None. FINDINGS: There is a right hip total arthroplasty with the previously removed acetabular component as seen on prior studies. Cerclage wires are present surrounding the proximal right femur. There is a healing fracture of the proximal shaft of the right femur seen laterally. There is no lytic lesion. The soft tissues are normal. IMPRESSION: 1. Right hip arthroplasty with removed acetabular component as seen previously. 2. Healing fracture of the proximal shaft of the right femur. 3. No acute abnormality. RPTAT: QQ .Fili Morejon MD, MD Date Time Electronically viewed and signed by .Fili Morejon MD, MD on 01/04/2017 15:41 .R/ CC: JEAN-CLAUDE STEWART MD Procedures/MDM 61 y/o female with history of Right hip arthroplasty with post op infection, presents c/o worsening of pain on her right knee after PT. No history of recent trauma. Physical exam revealed diffuse tenderness of right thigh with decreased ROM due to pain. Surgical incision and right thigh without erythema, warmth or induration. Medical records reviewed including but not limited to recent CT of right hip the reported: 1. Revision right hip arthroplasty in place with cerclage wire fixators over the proximal femoral diaphysis. 2. Remote appearing fracture of the proximal femoral diaphysis, otherwise without evident healing over interval since 10/21/2016. During this visit we decided to request Rt knee XR series that showed residual orthopedic hardware in the medullary space of the distal femur, which may explain the persistent sharp pain on her knee. Results and copy of the reports provided to the patient. She received Dilaudid IM with improvement of her pain. The patient will be DC with f/u in 2- 4 days with her PCP and ortho specialist. Departure Diagnosis: Primary Impression: Knee pain, right anterior Additional Impression: Retained orthopedic hardware Condition: Stable Comments Thank you for allowing us to participate in your care. Please follow with PCP and Ortho in 2-4 days and bring all the information and prescriptions given. Return to the emergency department for worsening of symptoms. JEAN-CLAUDE STEWART MD Jan 04, 2017 14:34
[2017-01-04] MEDS ORDERED: HYDROmorphONE 1 MG/ML SYG IV STA (14:36)
--- NOTE | 2017-01-04 15:41 | RADRPT ---
PROCEDURE: XR Right Hip. CLINICAL INDICATION: Right hip pain. Postop. TECHNIQUE: Two views. Frontal and lateral. COMPARISON: None. FINDINGS: There is a right hip total arthroplasty with the previously removed acetabular component as seen on prior studies. Cerclage wires are present surrounding the proximal right femur. There is a healing f racture of the proximal shaft of the right femur seen laterally. There is no lytic lesion. The soft tissues are normal. IMPRESSION: 1. Right hip arthroplasty with removed acetabular component as seen previously. 2. Healing fracture of the proximal shaft of the right femur. 3. No acute abnormality. RPTAT: QQ .Fili Morejon MD, MD Date Time Electronically viewed and signed by .iFli Morejon MD, on 01/04/2017 15:41 .R/
--- NOTE | 2017-01-04 15:51 | RADRPT ---
PROCEDURE: Right knee radiographs. CLINICAL INDICATION: Right knee pain. TECHNIQUE: Three views. Weight bearing. Frontal, lateral, and Oblique. COMPARISON: No prior studies are available for comparison. FINDINGS: There is no fracture or dislocation. The soft tissues are normal. The articular surfaces are intact. There is no lytic or blastic lesion. There is residual orthopedic hardware in the medullary space of the distal femur. IMPRESSION: 1. Residual orthopedic hardware in the medullary space of the distal femur. 2. Otherwise unremarkable images of the right knee. RPTAT: QQ .Fili Morejon MD, MD Date Time Electronically viewed and signed by .Fili Morejon MD, on 01/04/2017 15:43 .R/
[2017-01-04] MEDS ORDERED: OXYC-209 PO (16:59)
[2017-01-04] MEDS ORDERED: ONDANSETRON (ODT) 4 MG TAB ODT STA (17:02)
[2017-01-04] MEDS ORDERED: ONDA4TAB14 PO (17:04)
== END 2017-01-04 17:17 | disposition home or self-care (01) ==
LOC: FTE 11:08
DX: T84.84XA Pain due to internal orthopedic prosthetic devices, implants and grafts, initial encounter (principal); Y79.8 Miscellaneous orthopedic devices associated with adverse incidents, not elsewhere classified
CPT/HCPCS: 73510; 73562; 96374; J1170; Z7502; Z7610

== ENCOUNTER → 2017-01-23 | Outpatient (CLI) | payer OTHER ==
[~2017-01-23] MED LIST changes: +ONDA4TAB14 PO
--- NOTE | 2017-01-23 19:59 | HKNOTE ---
DATE OF SERVICE: 01/23/2017 CHIEF COMPLAINT: Right hip pain. HISTORY OF PRESENT ILLNESS: This is a 61-year-old female who had a previous right total hip arthrop lasty by Dr. Valdes with subsequent infection. 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 Jourdan Peter on 09/10/2016. She states that she recently had a lung infection , and she is currently on antibiotics. She is using a walker for ambulation. She is complaining of occasional pain in the right thigh. Otherwise, she has no other complaints. GAIT: Antalgic gait. Use of a walker. RIGHT HIP EXAMINATION: Incision has healed. There is no redness or drainage. Pain with passive ra nge of motion. There is 0 to 100 degrees of flexion, 35 degrees of external rotation and 15 degrees of internal rotation. X-RAYS RIGHT HIP: Two view x-ray of the right hip demonstrate a previous Prostalac. There are cerc jayne cables for the trochanteric osteotomy. IMPRESSION: This is a 61-year-old female with a right hip Prostalac. PLAN: Ms. Alves currently has an infection. I explained to her that she is currently on antibiotics and needs to finish her remaining antibiotics. Following finishing antibiotics, she will need new blood work including an ESR, CRP and a CBC with differential. If those laboratory data are negative , then she will require right hip aspiration. If that continues to be negative, then we can proceed with removal of the Prostalac and right total hip arthroplasty. She will return in 2 weeks with r laboratory data. Dictated By: RICHARD MOSES/WARNER Conf#: [id number] DID#: [id number]
== END | disposition home or self-care (01) ==
LOC: HKI 14:17
PROVIDERS: ATTEND Orthopaedic Surgery Adult Reconstructive Orthopaedic Surgery
DX: M25.551 Pain in right hip (principal)
CPT/HCPCS: G0463

== ENCOUNTER → 2017-04-03 | Outpatient (CLI) | END | disposition home or self-care (01) ==

== ENCOUNTER → 2017-04-15 | Outpatient (CLI) | END | disposition home or self-care (01) ==

== ENCOUNTER → 2017-05-20 | Outpatient (CLI) | END | disposition home or self-care (01) ==

== ENCOUNTER → 2017-07-01 | Outpatient (CLI) | END | disposition home or self-care (01) ==

== ENCOUNTER → 2017-08-25 | Outpatient (CLI) | END | disposition home or self-care (01) ==

== ENCOUNTER 2017-08-27 05:25 | Inpatient (IN) | END 2017-09-01 20:35 | DRG 468 ==

== ENCOUNTER → 2017-09-09 | Outpatient (CLI) | END | disposition home or self-care (01) ==

== ENCOUNTER → 2017-11-03 | Outpatient (CLI) | END | disposition home or self-care (01) ==